=== PATIENT | female | born 1980 | race Caucasian/White ===

== ENCOUNTER 2023-10-25 15:53 | Inpatient (IN) ==
--- OUTSIDE RECORDS SUMMARY | 2023-10-25 16:00 | External Medical Summary | Summary of Care ---
Author Name Unknown Organization [facility] Address [address] [place] [address] Phone [phone] Care Team Providers Care Television Production Assistant Name Role Phone Petar Riley MD Primary Care Provide r Encounter Details Date Type Department Care Team (Latest Contact Info) Description 10/21/2023 12:40 PM EDT - 10/21/2023 6:29 PM EDT Hospital Encounter Radiology Film File [address] [place] [address] Arrived Discharge Disposition: Home - Self Care Allergies Active Allergy Reactions Criticality Noted Date Comments Amoxicillin-Pot Clavulanate Rash Low 04/24/20 21 documented as of this encounter (statuses as of 10/24/2023) Medications Medication Sig Dispensed Refills Start Date End Date Status Levothyroxine Sodium 75 MCG Oral Tablet (Levoxyl)Indications:Ac quired hypothyroidism TAKE 1 TABLET BY MOUTH IN THE MORNING ON AN EMPTY STOMACH. 90 Tablet 3 09/29/2023 Active Aspirin 81 MG Oral Tablet Chewable Take 1 Tablet by mouth in the morning. 30 Tablet 11 10/23/2023 Active documented as of this encounter (statuses as of 10/24/2023) Active Problems Problem Noted Date Diagnosed Date Transient speech disturbance 10/23/2023 Dissection of carotid artery 10/22/2023 Acquired hypothyroidism 09/21/2021 Acute bronchitis, antibiotics not indicated 10/2021 History of depression 06/20/2017 History of migraine 06/20/2017 History of anxiety 06/20/2017 ADVANCE DIRECTIVE INFORMATION 10/12/2010 Overview: No, Advance Directive brochure given to patient. Adjustment disorder with depressed mood 05/26/20 09 Overview: As of 10/12/10 pt states her symptoms are controlled with Celexa 20 mg daily. No homicidal or suicidal ideation. Other acne 05/04/2008 documented as of this encounter (statuses as of 10/24/2023) Resolved Problems Problem Noted Date Diagnosed Date Resolved Date Antepartum multigravida of a dvanced maternal age 0611/26/2017 04/20/2021 Supervision of wit h grand multiparity, antepartum 11/26/2017 04/20/2021 Elderly multigravida in first trimester 06/20/2017 11/26/2017 Current with histo ry of pre-term labor in first trimester 06/20/2017 04/20/2021 History of delivery, currently 06/20/2017 04/20/2021 Need for rubella vaccination 05/22/2017 12/22/2017 Overview: Rubella equivocal at NOB. Vaccinate PP AMA (advanced maternal age) multigravida 35+ 7 12/22/2017 History of delivery, currently 10/29/2013 05/23/2014 Depression complicating , antepartum 10/30/19 14 05/23/2014 Encounter for supervision of other normal 10/11/2013 06/14/2014 Overview: H/o PTL x 3, no PTD; all deliveries >36wks MFM 10/29/13: Recommend weekly IM 17-alpha hydroxyprogesterone 250mg ([place]) administration initiated between 16-24 weeks gestation and continued until 36 weeks gestation for prevention of labor and delivery. -pt declines due to cost Pt interested in PP tubal ligation Flu vaccine administered 04/18/2014 Renetta Ferrara, RN Tdap vaccine administered 04/18/2014 Renetta Ferrara RN ICD-10 update of inactive term Threatened premature labor, antepartum 01/07/2011 01/18/2011 Overview: Admitted to [facility] and transferred to [place] at 33 wks, kept there until 35 wks, was 4 cm upon d/c. GBS neg. Rec'd steroids ICD-10 update of inactive term Polyhydramnios, antepartum complication 01/07/2011 01/18/2011 Overview: MARINA = 27 at 35 wks NSTs/AFIs Other specified screening(V28.89) 10/13/2010 10/11/2013 LEFT ADNEXAL/ABDOMINAL CYST 10/09/2010 01/18/2011 Overview: From 10/09/10 a left abdominal cyst, possibly ovarian was noted on U/S measuring 3.8 x 3.0 x 3.3 cm. As of 10/12/10 f/u imaging on a more advanced U/S machine noted similar findings of a left-sided abdominal cyst measuring 3.4 x 2.1 x 4.6 cm which does not appear to be directly connected to her left ovary. While is it unclear as to the precise origin of this simple cyst, no findings of septations, or echolucencies suggestive of a complex nature which would suggest a higher likelihood of malignancy are noted. Additionally, Ms. Kumar denies abdominal pain. She has been given pain precautions and has agreed to f/u in 5-6 weeks to review imaging of this benign appearing abdominal cyst. Encounter for supervision of other normal 09/05/2010 01/18/2011 Overview: History of PTL with 2nd , was on bedrest starting at 20wk. Delivered at 36wks Per prior [facility] consultation, Cynthia's three (3) prior deliveries noted above do not put her at any significantly increased risk for delivery as they were >36 wks gestation. GBS done 12/15/10 - negative ICD-10 update of inactive term Threatened , antepartum 06/26/2009 02/13/2013 Overview: ED 06/24 [place]. [place] [address]. Redrawn 06/26 for trending. U/s 06/26 wnl, cx closed. Bld type O+. Encounter for supervision of other normal 05/26/2009 09/05/2010 ACUTE CYSTITIS 03/06/2005 08/11/2008 Overview: Resolved per Benign Acute Dxs Protocol #3 Urinary frequency 03/06/2005 09/04/2010 Dysuria 03/06/2005 09/04/2010 Abdominal pain, epigastric 03/06/2005 0 09/04/2010 SLOW TRANSIT CONSTIPATION/OBSTIPATION 03/06/2005 09/04/2010 Allergic rhinitis 03/06/2005 09/04/2010 Normal , first 08/15/200012/2000 documented as of this encounter (statuses as of 10/24/2023) Immunizations Name Administration Dates Next Due COVID-19 mRNA, LNP-s, No Pre serve, 2-Dose Series (Moderna) 11/22/2020,10/25/2020 Diptheria/Tetanus (Adult) 06/16/2006 H1N1 2009 Influenza, IM 05/26/2009 Seasonal Influenza, Split, IIV3, With Preserve, Inj 04/18/2014,04/04/2009 TDAP (age 10 and older)(Boostrix) 11/26/2017,08/2013 documented as of this encounter Social History Tobacco Use Types Packs/Day Years Used Date Smoking Tobacco: Never Smokeless Tobacco: Never Comments:Encouraged to avoid excessive secondhand smoke exposure in - 2018 Alcohol Use Standard Drinks/Week Comments No 0 (1 standard drink = 0.6 oz pure alcohol) Denies ETOH use since LMP- 2018 PHQ-2 Answer Date Recorded PHQ-2 Score 2 04/15/2019 Sex and Gender Information Value Date Recorded Sex Assigned at Female 01/20/2020 2:24 PM EDT Gender Identity Female 01/20/2020 2:24 PM EDT Sexual Orientation Straight 01/20/2020 2: 24 PM EDT Job Start Date Occupation Industry Not on file Not on file Not on file documented as of this encounter Plan of Treatment Upcoming Encounters Date Type Department Care Team (Late st Contact Info) Description 11/20/2023 11:00 AM EDT Imaging Radiology [address], [address] [place] [address] 11/20/2023 11:15 AM EDT Imaging Radiology [address] [facility], [address] [place] [address] 11/25/2023 3:30 PM EDT Office Visit [facility], [place] [address] [facility] [place] [address] Chance Connolly MD [address] [place] [address] Health Maintenance Due Date Last Done Comments Hepatitis B (1 of 3 - 19+ 3-dose series) 08/27/1998 HPV/Co-Test 08/27/2009 Mammogram 2019 Depression Screening 04/15/2020 04/15/2019 COVID-19 Vaccine ( season) 2023 11/22/2020, 10/25/2020 Cervical Cancer Screening 02/15/2023 Pap Smear 02/15/2023 02/16/2020, 02/15, 05/20/2017, Additional history exists Influenza Vaccine (FLU shot) (Season Ended) 2024 04/18/2014, 05/26/2009, 04/04/2009 TSH 10/19/2024 10/20/2023, 04/0 01/2022, 07/14/2021, Additional history exists Diabetes Screening 10/21/2026 10/22/2023, 0 10/22/2023, 10/22/2023, Additional history exists DTaP,Tdap,and Td Vaccines (4 - Td or Tdap) 11/27/2027 11/26/2017, 10/15/2017, 04/18/2014, Additional history exists Lipid Panel 10/21/2028 10/22/2023 GARDASIL-HPV IMMUNIZATION SERIES Aged Out No longer eligible based on patient's age to complete this topic MENINGOCOCCAL (MENACTRA/MENVEO) Aged Out No longer eligible based on patient's age to complete this topic Pneumococcal Vaccine: Pediatrics (0 to 5 Years) and At-Risk Patients (6 to 64 Years) Aged Out No longer eligible based on patient's age to complete this topic documented as of this encounter Medical Devices Not on filedocumented as of this encounter Procedures Procedure Name Priority Date/Time Associated Diagnosis Comments RADIOLOGY EXAM - CT (IMAGES ONLY, NO REPORT) Routine 10/21/2023 12:40 PM EDT documented in this encounter Results * RADIOLOGY EXAM - CT (IMAGES ONLY, NO REPORT) (10/21/2023 12:40 PM EDT) 10/21/2023 12:3 1 PM EDT Narrative Scheduling, Silent - 10/23/2023 8:41 AM EDT This is an imaging study not interpreted or resulted by a [employer] or [employer] contracted radiologist. Demian Kumar MD RAD CT documented in this encounter Additional Health Concerns Infection Onset Date Last Indicated Resolved Time COVID-19 (confirmed) 10/08/2021 10/08/2021 024 7:51 AM EDT documented as of this encounter Advance Directives Latest Code Status on File Code Status Date Activated Date Inactivated Comments Full Code 10/21/2023 10:34 PM 10/23/2023 6:17 PM This o rder reflects the patients wishes and were consensually agreed upon. Question Answer Comments Discussion of Advance Directives occurred with: Patient Code Status History Code Status Date Activated Date Inactivated Comments Full Code 12/18/2010 5:48 AM 01/01/2011 10:02 PM This order reflects the patients wishes and were consensually agreed upon. Care Teams Television Production Assistant Relationship Specialty Start Date End Date Petar Riley MD [address] [place] [address] [place] [phone] PCP - General Family Medicine 04/21/23 documented as of this encounter
--- OUTSIDE RECORDS SUMMARY | 2023-10-25 16:00 | External Medical Summary | Summary of Care ---
Author Name Unknown Organization [facility] Address [address] [place] [address] Phone [phone] Care Team Providers Care Hat Checker Name Role Phone Petar Riley MD Primary Care Provide r Encounter Details Date Type Department Care Team (Latest Contact Info) Description 10/21/2023 6:30 PM EDT - 10/21/2023 10:08 PM EDT Hospital Encounter Radiology Film File [address] [place] [address] Arrived Discharge Disposition: Home - [...] 10/29/13: Recommend weekly IM 17-alpha hydroxyprogesterone 250mg ([place]) administration initiated between 16-24 weeks gestation and continued until 36 weeks gestation for prevention of labor and delivery. -pt declines due to cost Pt interested in PP tubal ligation Flu vaccine administered 04/18/2014 Renetta Ferrara, RN Tdap vaccine administered 04/18/2014 Renetta Ferrara RN ICD-10 update of inactive term Threatened premature labor, antepartum 01/07/2011 01/18/2011 Overview: Admitted to [facility] and transferred to [place] at 33 wks, kept there until 35 [...] at 20wk. Delivered at 36wks Per prior [facility] consultation, Cynthia's three (3) prior deliveries noted above do not put her at any significantly increased risk for delivery as they were >36 wks gestation. GBS done 12/15/10 - negative ICD-10 update of inactive term Threatened , antepartum 06/26/2009 02/13/2013 Overview: ED 06/24 [place]. [place] [address]65. Redrawn 06/26 for trending. U/s 06/26 wnl, [...] Description 11/20/2023 11:00 AM EDT Imaging Radiology [address], [address] [place] [address] 11/20/2023 11:15 AM EDT Imaging Radiology [address] [facility], [address] [place] [address] 11/25/2023 3:30 PM EDT Office Visit [facility], [place] [address] [place] [facility] [place] [address] [facility] Connolly [facility] [address] [facility] [address] Health Maintenance Due Date Last Done Comments [...] Date/Time Associated Diagnosis Comments RADIOLOGY EXAM - MRI (IMAGES ONLY, NO REPORT) Routine 10/21/2023 6:30 PM EDT documented in this encounter Results * RADIOLOGY EXAM - MRI (IMAGES ONLY, NO REPORT) (10/21/2023 6:30 PM EDT) 10/21/2023 6:30 PM EDT Narrative Scheduling, Silent - 10/23/2023 8:37 AM EDT This is an imaging study not interpreted or resulted by a [facility] or [facility] contracted radiologist. Demian Kumar MD RAD MRI-MRA documented in this encounter Additional Health Concerns [...] and were consensually agreed upon. Care Teams Hat Checker Relationship Specialty Start Date End Date Petar Riley MD [address] [place] [address] [place] [phone] PCP - General Family Medicine 04/21/23 documented as of this encounter
--- OUTSIDE RECORDS SUMMARY | 2023-10-25 16:00 | External Medical Summary | Summary of Care ---
Author Name Unknown Organization [facility] Address [address] [place] [address] Phone [phone] Care Team Providers Care Destination Coordinator Name Role Phone Petar Riley MD Primary Care Provide r Encounter Details Date Type Department Care Team (Latest Contact Info) Description 10/21/2023 12:35 PM EDT - 10/21/2023 12:39 PM EDT Hospital Encounter Radiology Film File [address] [place] [address] Arrived Discharge Disposition: Home - [...] 10/29/13: Recommend weekly IM 17-alpha hydroxyprogesterone 250mg ([place]) administration initiated between 16-24 weeks gestation and continued until 36 weeks gestation for prevention of labor and delivery. -pt declines due to cost Pt interested in PP tubal ligation Flu vaccine administered 04/18/2014 Renetta Ferrara, RN Tdap vaccine administered 04/18/2014 Renetta Ferrara RN ICD-10 update of inactive term Threatened premature labor, antepartum 01/07/2011 01/18/2011 Overview: Admitted to [facility] and transferred to [place] at 33 wks, kept there until 35 [...] at 20wk. Delivered at 36wks Per prior [facility] consultation, Cynthia's three (3) prior deliveries noted above do not put her at any significantly increased risk for delivery as they were >36 wks gestation. GBS done 12/15/10 - negative ICD-10 update of inactive term Threatened , antepartum 06/26/2009 02/13/2013 Overview: ED 06/24 [place] 180[address]. Redrawn 06/26 for trending. U/s 06/26 wnl, [...] Description 11/20/2023 11:00 AM EDT Imaging Radiology [address], [address] [place] [address] 11/20/2023 11:15 AM EDT Imaging Radiology [address] [facility], [address] [place] [address] 11/25/2023 3:30 PM EDT Office Visit [facility], [place] [address] [place] [facility] [place] [address] Chance Connolly MD [address] [facility] [place] [address] Health Maintenance Due Date Last Done Comments [...] CT (IMAGES ONLY, NO REPORT) Routine 10/21/2023 12:35 PM EDT documented in this encounter Results * RADIOLOGY EXAM - CT (IMAGES ONLY, NO REPORT) (10/21/2023 12:35 PM EDT) 10/21/2023 12:3 1 PM EDT Narrative Scheduling, Silent - 10/23/2023 8:39 AM EDT This is an imaging study not interpreted or resulted by a [employer] or [employer] contracted radiologist. Demian Kumar MD RAD CT [...] and were consensually agreed upon. Care Teams Destination Coordinator Relationship Specialty Start Date End Date Petar Riley MD [address] [place] [address] [place] [phone] PCP - General Family Medicine 04/21/23 documented as of this encounter
--- OUTSIDE RECORDS SUMMARY | 2023-10-25 16:00 | External Medical Summary | Summary of Care ---
Author Name Unknown Organization [facility] Address [address] [place] [address] Phone [phone] Care Team Providers Care Pageant Director Name Role Phone Petar Riley MD Primary Care Provide r Encounter Details Date Type Department Care Team (Latest Contact Info) Description 10/21/2023 11:25 AM EDT - 10/21/2023 12:34 PM EDT Hospital Encounter Radiology Film File [address] [place] [address] Arrived Discharge Disposition: Home - [...] labor, antepartum 01/07/2011 01/18/2011 Overview: Admitted to [facility] and transferred to [place] at 33 wks, kept there until 35 [...] at 20wk. Delivered at 36wks Per prior [facility] consultation, Cynthia's three (3) prior deliveries noted above do not put her at any significantly increased risk for delivery as they were >36 wks gestation. GBS done 12/15/10 - negative ICD-10 update of inactive term Threatened , antepartum 06/26/2009 02/13/2013 Overview: ED 06/24 [place]. Hcg 70549. Redrawn 06/26 for trending. U/s 06/26 wnl, [...] Description 11/20/2023 11:00 AM EDT Imaging Radiology [address], [address] [place] [address] 11/20/2023 11:15 AM EDT Imaging Radiology [address] [facility], [address] [place] [address] 11/25/2023 3:30 PM EDT Office Visit [facility], [place] [address] [place] [address] Chance Connolly MD [address] [facility] [place] [address] Health Maintenance Due Date Last Done Comments [...] CT (IMAGES ONLY, NO REPORT) Routine 10/21/2023 11:25 AM EDT documented in this encounter Results * RADIOLOGY EXAM - CT (IMAGES ONLY, NO REPORT) (10/21/2023 11:25 AM EDT) 10/21/2023 11:2 2 AM EDT Narrative Scheduling, Silent - 10/23/2023 8:42 AM EDT This is an imaging study not interpreted or resulted by a [employer] or [employer] contracted radiologist. Demian Kumar MD RAD CT [...] and were consensually agreed upon. Care Teams Pageant Director Relationship Specialty Start Date End Date Petar Riley MD [address] [place] [address] [place] [phone] PCP - General Family Medicine 04/21/23 documented as of this encounter
--- OUTSIDE RECORDS SUMMARY | 2023-10-25 16:00 | External Medical Summary | Summary of Care ---
Author Name Unknown Organization [facility] Address [address] [place] [address] Phone [phone] Care Team Providers Care Oil Field Roustabout Name Role Phone Simba Riley MD Primary Care Provide r Reason for Visit * Reason Onset Date Comments Hospital Follow-Up 10/23/2023 1mo hd/fu pippa t needed thanks Nelly Encounter Details Date Type Department Care Team (Late st Contact Info) Description 10/23/2023 Telephone [facility], [place] [address] [place] [address] Specified, Samantha No Resource [address] [place] [address] Hospital Follow-Up (1mo hd/fu appt needed ... Allergies Active Allergy Reactions Criticality Noted Date Comments Amoxicillin-Pot Clavulanate Rash Low 04/24/20 21 documented as of this encounter (statuses as of 10/24/2023) Medications Medication Sig Dispensed Refills Start Date End Date Status Levothyroxine Sodium 75 MCG Oral Tablet (Levoxyl)Indications :Acquired hypothyroidism TAKE 1 TABLET BY MOUTH IN THE MORNING ON AN EMPTY STOMACH. 90 Tablet 3 09/29/2023 Active Sulfamethoxazole-Tri methoprim 800-160 MG Oral Tablet (Bactrim DS) Take 1 Tablet by mouth in the morning and 1 Tablet before bedtime. Do all this for 3 days. 6 Tablet 0 06/30/2023 4 Discontinued Ondansetron 4 MG Oral Tablet Disintegrating (Zofran) Place 1 Tablet on tongue every 8 hours as needed for Nausea. dissolve on tongue. 10 Tablet 0 10/20/2023 4 Discontinued documented as of this encounter (statuses as [...] patient. Adjustment disorder with depressed mood 05/26/20 Overview: As of 10/12/10 pt states her [...] x 3, no PTD; all deliveries >36wks [facility] 10/29/13: Recommend weekly IM 17-alpha hydroxyprogesterone 250mg ([place]) administration initiated between 16-24 weeks gestation and continued until 36 weeks gestation for prevention of labor and delivery. -pt declines due to cost Pt interested in PP tubal ligation Flu vaccine administered 04/18/2014 Renetta Ferrara, RN Tdap vaccine administered 04/18/2014 Renetta Ferrara, RN ICD-10 update of inactive term Threatened premature labor, antepartum 01/07/2011 01/18/2011 Overview: Admitted to [facility] and transferred to [place] at 33 wks, kept there until 35 [...] at 20wk. Delivered at 36wks Per prior [facility] consultation, Jenny's three (3) prior deliveries noted above do not put her at any significantly increased risk for delivery as they were >36 wks gestation. GBS done 12/15/10 - negative ICD-10 update of inactive term Threatened , antepartum 06/26/2009 02/13/2013 Overview: ED 06/24 [place]. [place] [address]74. Redrawn 06/26 for trending. U/s 06/26 wnl, [...] on file documented as of this encounter Functional Status Functional Status Response Date of Assess ment Are you deaf or do you have serious difficulty h earing? No 10/21/2023 Are you blind or do you have serious difficulty seeing, even when wearing glasses? No 10/21/2023 Do you have serious difficul ty walking or climbing stairs? (5 years old or older) No 10/21/2023 Do you have difficulty dress ing or bathing? (5 years old or older) No 10/21/2023 Because of a physical, menta l, or emotional condition, do you have difficulty doing errands alone such as visiting a doctor s office or shopping? (15 years old or older) No 10/21/19 Cognitive Status Response Date of Assessm ent Because of a physical, menta l, or emotional condition, do you have serious difficulty concentrating, remembering, or making decisions? (5 years old or older) No 10/21/2023 documented as of this encounter Miscellaneous Notes * Telephone Encounter - Nataly Ocasio RN - 10/24/2023 9:54 AM EDT Patient is s/p 10/22/2023 6-vessel cerebral angiogram with Dr. Connolly. Plan: Return to clinic in one month with CTA neck. -OV 11/25/2023 @ 3:30pm -CTA head/neck scheduled Patricia Cedeno 11/19 Continue daily baby Aspirin. Placed call out to patient [phone], no answer. Provided VM with instructions as above, and to remove bandage 24 hours after procedure, and s/s she should call and report. Provided clinic callback number for any questions or concerns she may have. Nataly Ocasio RN Cerebrovascular Nurse Navigator [facility] * Telephone Encounter - Melina Garcia OSA - 10/23/2023 8:37 AM EDT Patient is scheduled with Dr Connolly for a 1 month hd f/u on November 24 and CTA of head/neck are scheduled for 11/19 at [facility], appt's will be on discharge papers as patient is currently admitted * Telephone Encounter - Nelly Kidd OSA - 10/23/2023 7:55 AM EDT Order RETURN APPT [[id number]] (Order [id number]) Jenny Michael 10/21/2023 10:09 PM Admission Description: 43 year old female Department: [facility] Message Patient Name: JENNY MICHAEL([id number]) Sex: Female : 1980 PCP: SIMBA RILEY Center: [facility] Types of orders made on 10/23/2023: IP Post Discharge , Medications Order Date:10/23/2023 Ordering User:SEB VILLALBA [[id number] Attending Provider:Chance Connolly MD [[id number] Authorizing Provider: Seb Villalba MD [[id number]] Department:[facility][[id number]] Order Specific Information Order: RETURN APPT [CUSTOM: [id number]] Order #: [id number]: 1 Priority: Routine Class: Nursing Unit Department (Single Entry) -> Neurosurgery Appt Needed Within: (Specify # of Days, Weeks, Months) Cmt: 1 month Tests Needed Prior to Appt -> CTA H/N Released on: 10/23/2023 7:47 AM Priority: Routine Class: Nursing Unit Department (Single Entry) -> Neurosurgery Appt Needed Within: (Specify # of Days, Weeks, Months) Cmt: 1 month Tests Needed Prior to Appt -> CTA H/N Released on: 10/23/2023 7:47 AM Order Information documented in this encounter Plan of Treatment Upcoming Encounters Date Type Department Care Team (Late st Contact Info) Description 11/20/2023 11:00 AM EDT Imaging Radiology [address] [facility] [place] [address] 11/20/2023 11:15 AM EDT Imaging Radiology [address] [facility] [place] [address] 11/25/2023 3:30 PM EDT Office Visit Neurosurgery, [place] [address] [place] [address] Chance Connolly MD [address] [place] [address] Health Maintenance Due Date Last Done Comments [...] Not on filedocumented as of this encounter Advance Directives Latest [...] and were consensually agreed upon. Care Teams Oil Field Roustabout Relationship Specialty Start Date End Date Simba Riley MD [address] [place] [address] [place] [id number] PCP - General Family Medicine 04/21/23 documented as of this encounter
--- OUTSIDE RECORDS SUMMARY | 2023-10-25 16:01 | External Medical Summary ---
Author Name Unknown Address Unknown Organization : Laboratory Report Ordering Provider Test Date Status JOSÉ LUIS MARX 10/22/2023 12:11:50 Final Observation Date Value Abnormality Reference (Units ) Status Glucose Point of Care 10/22/2023 12:11:50 98 70-120 (mg/dL) Final Performing Location
--- OUTSIDE RECORDS SUMMARY | 2023-10-25 16:01 | External Medical Summary | Summary of Care ---
Author Name Unknown Organization [facility] Address [address] [place] [address] Phone [phone] Care Team Providers Care Post Splitter Name Role Phone Petar Riley MD Primary Care Provide r Encounter Details Date Type Department Care Team (Late st Contact Info) Description 10/21/2023 Orders Only Unspecified Department Demian Kumar MD [address] [place] [address] Allergies Active Allergy Reactions Criticality Noted Date Comments Amoxicillin-Pot Clavulanate Rash Low 04/24/20 21 documented as of this encounter (statuses as of 10/23/2023) Medications Medication Sig Dispensed Refills Start Date End Date Status Levothyroxine Sodium 75 MCG Oral Tablet (Levoxyl)Indications :Acquired hypothyroidism TAKE 1 TABLET BY MOUTH IN THE MORNING ON AN EMPTY STOMACH. 90 Tablet 3 09/29/2023 Suspended Additional Information Ondansetron 4 MG Oral Tablet Disintegrating (Zofran) Place 1 Tablet on tongue every 8 hours as needed for Nausea. dissolve on tongue. 10 Tablet 0 10/20/2023 Suspended Additional Information documented as of this encounter (statuses as of 10/23/2023) Active Problems Problem Noted Date Diagnosed Date [...] as of this encounter (statuses as of 10/23/2023) Resolved Problems Problem Noted Date Diagnosed Date [...] x 3, no PTD; all deliveries >36wks [facility] 10/29/13: Recommend weekly IM 17-alpha hydroxyprogesterone 250mg ([place]) administration initiated between 16-24 weeks gestation and continued until 36 weeks gestation for prevention of labor and delivery. -pt declines due to cost Pt interested in PP tubal ligation Flu vaccine administered 04/18/2014 Renetta Ferrara, RN Tdap vaccine administered 04/18/2014 Renetta Ferrara RN ICD-10 update of inactive term Threatened premature labor, antepartum 01/07/2011 01/18/2011 Overview: Admitted to [facility] and transferred to [place] at 33 wks, kept there until 35 [...] at 20wk. Delivered at 36wks Per prior [facility] consultation, Cynthia's three (3) prior deliveries noted above do not put her at any significantly increased risk for delivery as they were >36 wks gestation. GBS done 12/15/10 - negative ICD-10 update of inactive term Threatened , antepartum 06/26/2009 02/13/2013 Overview: ED 06/24 [place]. [place] 31559. Redrawn 06/26 for trending. U/s 06/26 wnl, [...] as of this encounter (statuses as of 10/23/2023) Immunizations Name Administration Dates Next Due COVID-19 [...] Description 11/20/2023 11:00 AM EDT Imaging Radiology [address] 132 [facility] [place] [address] 11/20/2023 11:15 AM EDT Imaging Radiology [address] [place] [address] 11/25/2023 3:30 PM EDT Office Visit Shama, Shaila [address] [place] [address] Chacne Connolly MD [address] [place] [address] Health Maintenance Due Date Last Done Comments [...] 10/22/2023, Additional history exists DTaP,Tdap,and Td Vaccines (3 - Td or Tdap) 11/27/2027 11/26/2017, 04/18/2014, 06/16/2006 Lipid Panel 10/21/2028 10/22/2023 GARDASIL-HPV IMMUNIZATION SERIES [...] interpreted or resulted by a [facility] or [facility] radiologist. Demian Kumar MD RAD MRI-MRA documented in this encounter Additional Health Concerns Infection Onset Date Last Indicated Resolved Time COVID-19 (confirmed) 10/08/2021 10/08/2021 024 7:51 AM EDT documented as of this encounter Advance Directives Latest Code Status on File Code Status Date Activated Date Inactivated Comments Full Code 10/21/2023 10:34 PM This order reflects the patients wishes and were consensually agreed upon. Question Answer Comments Discussion of Advance Directives occurred with: Patient Code Status History Code Status Date Activated Date Inactivated Comments Full Code 12/18/2010 5:48 AM 01/01/2011 10:02 PM This order reflects the patients wishes and were consensually agreed upon. Care Teams Post Splitter Relationship Specialty Start Date End Date Petar Riley MD [address] [place] [address] [place] [id number] PCP - General Family Medicine 04/21/23 documented as of this encounter
--- OUTSIDE RECORDS SUMMARY | 2023-10-25 16:01 | External Medical Summary | Summary of Care ---
Author Name Unknown Organization [facility] Address [address] [place] [address] Phone [phone] Care Team Providers Care Consulting Marine Engineer Name Role Phone Petar Riley MD Primary Care Provide r Encounter Details Date Type Department Care Team (Late st Contact Info) Description 10/21/2023 Orders Only Unspecified Department Demian Kumar MD [address] [place] [address] Allergies Active Allergy Reactions Criticality [...] x 3, no PTD; all deliveries >36wks [facility] 10/29/13: Recommend weekly IM 17-alpha hydroxyprogesterone 250mg ([place]) administration initiated between 16-24 weeks gestation and continued until 36 weeks gestation for prevention of labor and delivery. -pt declines due to cost Pt interested in PP tubal ligation Flu vaccine administered 04/18/2014 Renetta Ferrara, RN Tdap vaccine administered 04/18/2014 Renetta Ferrara RN ICD-10 update of inactive term Threatened premature labor, antepartum 01/07/2011 01/18/2011 Overview: Admitted to [facility] and transferred to [place] at 33 wks, kept there until 35 [...] at 20wk. Delivered at 36wks Per prior [facility] consultation, Cynthia's three (3) prior deliveries noted above do not put her at any significantly increased risk for delivery as they were >36 wks gestation. GBS done 12/15/10 - negative ICD-10 update of inactive term Threatened , antepartum 06/26/2009 02/13/2013 Overview: ED 06/24 [place]. [place] 03443. Redrawn 06/26 for trending. U/s 06/26 wnl, [...] Description 11/20/2023 11:00 AM EDT Imaging Radiology [address] 132 [facility] [place] [address] 11/20/2023 11:15 AM EDT Imaging Radiology [address] [place] [address] 11/25/2023 3:30 PM EDT Office Visit Shama, Shaila [address] [place] [address] Chance Connolly MD [address] [place] [address] Health Maintenance Due Date Last Done Comments [...] interpreted or resulted by a [facility] or [facility] radiologist. Demian Kumar MD RAD CT [...] and were consensually agreed upon. Care Teams Consulting Marine Engineer Relationship Specialty Start Date End Date Petar Riley MD [address] [place] [address] [place] [address] PCP - General Family Medicine 04/21/23 documented as of this encounter
--- OUTSIDE RECORDS SUMMARY | 2023-10-25 16:01 | External Medical Summary | Summary of Care ---
Author Name Unknown Organization [facility] Address [address] [place] [address] Phone [phone] Care Team Providers Care Tabulating Machine Mechanic Name Role Phone Petar Riley MD Primary Care Provide r Reason for Visit * Reason Onset Date Comments Hospital Follow-Up 10/23/2023 1mo hd/fu pippa t needed thanks Nelly Encounter Details Date Type Department Care Team (Late st Contact Info) Description 10/23/2023 Telephone [facility] [place] [address] [place] [address] Specified, Zz No Resource [address] [place] [address] Hospital Follow-Up (1mo hd/fu appt [...] tubal ligation Flu vaccine administered 04/18/2014 Renetta Ferrara DOROTHY Tdap vaccine administered 04/18/2014 Renetta Ferrara RN ICD-10 update of inactive term Threatened premature labor, antepartum 01/07/2011 01/18/2011 Overview: Admitted to [facility] and transferred to [place] at 33 wks, kept there until 35 [...] at 20wk. Delivered at 36wks Per prior [facility] consultation, Jenny's three (3) prior deliveries noted above do not put her at any significantly increased risk for delivery as they were >36 wks gestation. GBS done 12/15/10 - negative ICD-10 update of inactive term Threatened , antepartum 06/26/2009 02/13/2013 Overview: ED 1/9 with vag bleeding. Hcg 49396. Redrawn 06/26 for trending. U/s 06/26 wnl, [...] encounter Miscellaneous Notes * Telephone Encounter - Nelly Kidd, MYRNA - 10/23/2023 7:55 AM EDT Order RETURN APPT [IP355] (Order [id number]) Jenny Ashton Peamber 10/21/2023 10:09 PM Admission Description: 43 year old female Department: AP4 [place] [facility] [place] Patient Name: JENNY MICHAEL([id number]) Sex: Female : 1980 PCP: PETAR RILEY Center: [facility] Types of orders made on 10/23/2023: IP Post Discharge , Medications Order Date:10/23/2023 Ordering User:SEB VILLALBA [[id number]] Attending Provider:Chance Connolly MD [[id number] Authorizing Provider: Seb Villalba MD [[id number]] Department:AP4 [facility][id number]] Order Specific Information Order: RETURN APPT [CUSTOM: IP355] Order #: [id number]: 1 Priority: Routine Class: Nursing Unit Department [...] documented in this encounter Plan of Treatment Health Maintenance Due Date Last Done Comments [...] and were consensually agreed upon. Care Teams Tabulating Machine Mechanic Relationship Specialty Start Date End Date Petar Riley MD [address] [place] [address] [place] [id number] PCP - General Family Medicine 04/21/23 documented as of this encounter
--- OUTSIDE RECORDS SUMMARY | 2023-10-25 16:01 | External Medical Summary | Summary of Care ---
Author Name Unknown Organization [facility] Address [address] [place] [address] Phone [phone] Care Team Providers Care Button Clamper Name Role Phone Petar Riley MD Primary Care Provide r Reason for Visit * Reason Onset Date Comments Hospital Follow-Up 10/23/2023 1mo hd/fu pippa t needed thanks Nelly Encounter Details Date Type Department Care Team (Late st Contact Info) Description 10/23/2023 Telephone [facility] [place] [address] [place] [address] Specified, Zz No Resource [address] [place] [address] Hospital Follow-Up (1mo hd/fu appt [...] labor, antepartum 01/07/2011 01/18/2011 Overview: Admitted to [facility] and transferred to [place] at 33 wks, kept there until 35 [...] at 20wk. Delivered at 36wks Per prior [facility] consultation, Jenny's three (3) prior deliveries noted above do not put her at any significantly increased risk for delivery as they were >36 wks gestation. GBS done 12/15/10 - negative ICD-10 update of inactive term Threatened , antepartum 06/26/2009 02/13/2013 Overview: ED 1/9 [place]. H[place] 12287. Redrawn 06/26 for trending. U/s 06/26 wnl, [...] (15 years old or older) No 10/21/19 24 Cognitive Status Response Date of Assessm ent Because of a physical, menta l, or emotional condition, do you have serious difficulty concentrating, remembering, or making decisions? (5 years old or older) No 10/21/2023 documented as of this encounter Miscellaneous Notes * Telephone Encounter - Melina Garcia OSA - 10/23/2023 8:37 AM EDT Patient is scheduled with Dr Connolly for a 1 month hd f/u on November 24 and CTA of head/neck are scheduled for 11/19 at [facility] in [facility], appt's will be on discharge papers as patient is currently admitted * Telephone Encounter - Nelly Kidd OSA - 10/23/2023 7:55 AM EDT Order RETURN APPT [IP355] (Order [id number]) Jenny Ashton Beatrice 10/21/2023 10:09 PM Admission Description: 43 year old female Department: [place]4 [place] [facility] [place] Patient Name: JENNY MICHAEL([id number]) Sex: Female : 1980 PCP: PETAR RILEY Center: [facility] Types of orders made on 10/23/2023: IP Post Discharge , Medications Order Date:10/23/2023 Ordering User:SEB VILLALBA [[id number]] Attending Provider:Chance Connolly MD [[id number]] Authorizing Provider: Seb Villalba MD [[id number]] Department:AP4 [facility][[id number]] Order Specific Information Order: RETURN APPT [CUSTOM: IP355] Order #: [id number]: 1 Priority: Routine Class: Nursing Unit Department [...] Description 11/20/2023 11:00 AM EDT Imaging Radiology [address] [place] [address] 11/20/2023 11:15 AM EDT Imaging [address] [place] [address] 11/25/2023 3:30 PM EDT Office Visit [facility] [address] [place] [address] Chance Connolly MD [address] [place] [address] Health Maintenance Due Date Last Done Comments [...] and were consensually agreed upon. Care Teams Button Clamper Relationship Specialty Start Date End Date Petar Riley MD [address] [place] [address] [place] [id number] PCP - General Family Medicine 04/21/23 documented as of this encounter
--- OUTSIDE RECORDS SUMMARY | 2023-10-25 16:01 | External Medical Summary ---
Author Name Unknown Address Unknown Organization K01:[facility] [place] - [address] [facility] [place] [address] Laboratory Report Ordering Provider Test Date Status ERICA WILLIAMSON 10/22/2023 06:20:00 Final Observation Date Value Abnormality Reference (Units ) Status BUN 10/22/2023 06:20:00 10 6-20 (mg/dL) Final Creatinine 10/22/2023 06:20:00 0.8 0.5-1.0 (mg/dL) Final Glomerular filtration rate/1.73 sq M.predicted [Volume Rate/Area] in Serum, Plasma or Blood by Creatinine-based formula (CKD-EPI) 10/22/2023 06:20:00 89 >=60 (mL/min) Final eGFR is calculated based on the CKD-EPI 2020 equation Sodium 10/22/2023 06:20:00 139 135-146 (m mol/L) Final Potassium 10/22/2023 06:20:00 4.5 3.5-5.1 (m mol/L) Final Cl 10/22/2023 06:20:00 106 98-107 (mm ol/L) Final CO2 10/22/2023 06:20:00 25 22-32 (mmo l/L) Final Anion gap 10/22/2023 06:20:00 8 7-15 (mmol /L) Final Glucose 10/22/2023 06:20:00 91 70-120 (mg /dL) Final Calcium 10/22/2023 06:20:00 9.0 8.4-10.2 ( mg/dL) Final Performing Location [facility] - [address] [facility] [address]
--- OUTSIDE RECORDS SUMMARY | 2023-10-25 16:01 | External Medical Summary | Summary of Care ---
Author Name Unknown Organization [facility] Address [address] [place] [address] Phone [phone] Care Team Providers Care Silk Crepe Machine Operator Name Role Phone Petar Riley MD Primary Care Provide r Encounter Details Date Type Department Care Team (Late st Contact Info) Description 10/21/2023 Orders Only Unspecified Department Demian Kumar MD [address] [place] [address] Allergies Active Allergy Reactions Criticality [...] x 3, no PTD; all deliveries >36wks [facility] 10/29/13: Recommend weekly IM 17-alpha hydroxyprogesterone 250mg ([place]) administration initiated between 16-24 weeks gestation and continued until 36 weeks gestation for prevention of labor and delivery. -pt declines due to cost Pt interested in PP tubal ligation Flu vaccine administered 04/18/2014 Renetta Ferrara, RN Tdap vaccine administered 04/18/2014 Renetta Ferrara RN ICD-10 update of inactive term Threatened premature labor, antepartum 01/07/2011 01/18/2011 Overview: Admitted to [facility] and transferred to [place] at 33 wks, kept there until 35 [...] at 20wk. Delivered at 36wks Per prior [facility] consultation, Cynthia's three (3) prior deliveries noted above do not put her at any significantly increased risk for delivery as they were >36 wks gestation. GBS done 12/15/10 - negative ICD-10 update of inactive term Threatened , antepartum 06/26/2009 02/13/2013 Overview: ED 06/24 [place]. [place] [address]1143. Redrawn 06/26 for trending. U/s 06/26 wnl, [...] Description 11/20/2023 11:00 AM EDT Imaging Radiology [address] 132 [facility] [place] [address] 11/20/2023 11:15 AM EDT Imaging Radiology [address] [place] [address] 11/25/2023 3:30 PM EDT Office Visit Shama, Shaila [address] [place] [address] Chance Connolly MD [address] [place] [address] Health Maintenance Due Date Last Done Comments [...] interpreted or resulted by a [facility] or [facility] radi[facility]. Demian Kumar MD RAD [...] and were consensually agreed upon. Care Teams Silk Crepe Machine Operator Relationship Specialty Start Date End Date Petar Riley MD [address] [place] [address] [place] [id number] PCP - General Family Medicine 04/21/23 documented as of this encounter
--- OUTSIDE RECORDS SUMMARY | 2023-10-25 16:01 | External Medical Summary ---
Author Name Unknown Address Unknown Organization K01:[facility] [place] [address] [facility] [address] Laboratory Report Ordering Provider Test Date Status ERICA WILLIAMSON 10/22/2023 06:20:00 Final Observation Date Value Abnormality Reference (Units ) Status HbA1C 10/22/2023 06:20:00 5.5 4.0-5.6 (% ) Final The use of HbA1c to monitor glycemic status is based on normal hemoglobin and HbA composition. This test should not be used in patients with abnormal hemoglobin that affects the half life of the red blood cell or the in vivo glycation rates. Glucose, estimated average 10/22/2023 06:20:00 111 <126 (mg/dL) Final Performing Location [facility] [place] [address] [facility] [address]
--- OUTSIDE RECORDS SUMMARY | 2023-10-25 16:01 | External Medical Summary | Summary of Care ---
Author Name Unknown Organization [facility] Address [address] [place] [address] Phone [phone] Care Team Providers Care Bedspread Cutter Name Role Phone Petar Riley MD Primary Care Provide r Encounter Details Date Type Department Care Team (Late st Contact Info) Description 10/21/2023 Orders Only Unspecified Department Demian Kumar MD [address] [place] [address] Allergies Active Allergy Reactions Criticality [...] x 3, no PTD; all deliveries >36wks [facility] 10/29/13: Recommend weekly IM 17-alpha hydroxyprogesterone 250mg ([place]) administration initiated between 16-24 weeks gestation and continued until 36 weeks gestation for prevention of labor and delivery. -pt declines due to cost Pt interested in PP tubal ligation Flu vaccine administered 04/18/2014 Renetta Ferrara, RN Tdap vaccine administered 04/18/2014 Renetta Ferrara RN ICD-10 update of inactive term Threatened premature labor, antepartum 01/07/2011 01/18/2011 Overview: Admitted to [facility] and transferred to [place] at 33 wks, kept there until 35 [...] 20wk. Delivered at 36wks Per prior [facility] consultation, Cynthia's three (3) prior deliveries noted above do not put her at any significantly increased risk for delivery as they were >36 wks gestation. GBS done 12/15/10 - negative ICD-10 update of inactive term Threatened , antepartum 06/26/2009 02/13/2013 Overview: ED 06/24 [place]. H[place] 56699. Redrawn 06/26 for trending. U/s 06/26 wnl, [...] Description 11/20/2023 11:00 AM EDT Imaging Radiology [address] 132 [facility] [place] [address] 11/20/2023 11:15 AM EDT Imaging Radiology [address] [place] [address] 11/25/2023 3:30 PM EDT Office Visit Shama, Shaila [address] [place] [address] Chance Connolly MD [address] [place] [address] Health Maintenance Due Date Last Done Comments [...] interpreted or resulted by a [facility] or [facility] contracted radiologist. Demian Kumar MD RAD CT [...] and were consensually agreed upon. Care Teams Bedspread Cutter Relationship Specialty Start Date End Date Petar Riley MD [address] [place] [address] [place] [address] PCP - General Family Medicine 04/21/23 documented as of this encounter
--- OUTSIDE RECORDS SUMMARY | 2023-10-25 16:01 | External Medical Summary | Summary of Care ---
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 No orders of the defined types were placed in this encounter. Labs: Please see Lab Flowsheet for lab values. Lab Comments: n/a Diet: Orders Placed This Encounter Procedures NPO After 2400 Except Meds NPO: Additional Diet Information: npo since 0000 Intake and Output: No intake or output data in the 24 hours ending 10/22/23 1110 Belongings Remaining with Patient: none What were AM meds taken with: sips of water Time of last pain medication: acetaminophen at 0715 Med: acetaminophen Time of last antibiotic: n/a Med: n/a Time of last skin assessment: 739 Pressure injuries or areas of concern: no Neurological: Neuro WNL: X - Exceptions to WNL as documented below (10/22/23738) Speech: Expressive aphasia (10/22/23738) Level of Consciousness: Alert (10/22/23738) RUE Motor Strength: 5-Active movement with full resistance (10/22/23738) RLE Motor Strength: 5-Active movement with full resistance (10/22/23738) LUE Motor Strength: 5-Active movement with full resistance (10/22/23738) LLE Motor Strength: 5-Active movement with full resistance (10/22/23738) Coma Score: 15 (10/22/23738) Respiratory: Respiratory WNL: WNL- within normal limits (10/22/23738) Oxygen therapy/ Mechanical vent Supplemental O2 Delivery: Room Air, None (10/22/23738) Cardiac: Rhythm: NSR (10/22/23713) GI: GI WNL: WNL - within normal limits (10/22/23738) : WNL: WNL - within normal limits (10/22/23738) Integumentary: Integumentary WNL: WNL - within normal limits (10/22/23738) Skin Description: Dry;Warm (10/22/23738) Skin Color: Flesh Tone (10/22/23738) Skin Lesion: Ecchymosis (10/22/23738) Dallas Score (auto-calculation): 20 (10/21/23 2300) Additional Assessment Information: patient aox4. Has been npo since 0000. Pleasant and cooperative with care. * Latha Lira RN - 10/21/2023 10:34 PM EDT Dual Licensed Skin Assessment completed by Marizol Linares RN and Latha Lira RN. The patient is/has a N/A Skin Breakdown (includes non blanchable erythema): No -scattered ecchymosis documented in this encounter OR Notes * OR Surgeon - Chance Connolly MD - 10/22/2023 2:37 PM EDT 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 No angiographic evidence of associated pseudoaneurysm or intra luminal thrombosis. Left anterior choroidal artery infundibulum. A normal anatomical variant. Otherwise unremarkable diagnostic cervico-cerebral angiogram. Specifically, No evidence of aneurysm, arteriovenous malformation, vasospasm, vasculitis or other intracranial vascular abnormality. Operation: 6-vessel cerebral angiogram Surgeon: Chance Connolly MD Assistants: Nia Klein MD No qualified resident was available. My Analysis Director was necessary throughout the procedure(s). Analysis Director name: Nia Klein MD Analysis Director role: vascular access and catheter manipulation. I understand that section 1842 (b)(7)(D) of the Social Security Act generally prohibits Medicare physician fee schedule payment for the services of [id number] in teaching hospitals when qualified residents are available to furnish such services. I certify that the services for which meggan perla is claimed were medically necessary, and that no qualified resident was available to perform theservices. I further understand that these services are subject to post-payment review by the Medicare carrier. Anesthesia: Monitored Anesthesia Care (MAC) Hose Builder: Dotty Mehta RN; Valeria Fisher RN Pre-Op Nurse: Savi Cowart RN Personal Financial Representative: Christopher Kapadia, RT; Shira Lucero, RT; Milind Beal, RT (If conscious sedation was employed see above Sedation RN for trained observer) Total intraservice time: * Missing case tracking time(s) * Medication given during case (for sedation) Medication Orders Placed This Encounter Medications Acetaminophen (Tylenol) tab 650 mg aspirin chew tab 324 mg atorvaSTATin (Lipitor) tab 40 mg Docusate Sodium (Colace) cap 100 mg hEParin 3000 units in 1000 mL NSS infusion home medication stored in pharmacy levothyroxine (Levoxyl) tab 75 mcg ondansetron (Zofran) inj 4 mg oxygen GAS Polyethylene Glycol 3350 (Miralax) oral powder 17 g sodium chloride 0.9 % flush/inj 3 mL Estimated Blood Loss: 10 ml. IV Fluids: 100 ml. Urine Output: N/O. Drains: None. Specimens/Disposition: None. Apparent Intraoperative Complications: None. Patient Condition: Stable. Disposition: inpatient unit. Attestation: I was present for the entire procedure. Indication Cynthia Barron is a very pleasant 43 year old female, here today for diagnostic cervico-cerebral angiogram. In accordance with the patient's symptoms and imaging findings, i recommended that we perform a diagnostic cervico-cerebral angiogram to further evaluate and characterize for intracranial and extracranial vascular pathology. I explained that by performing this minimally-invasive diagnostic procedure our aim is to acquire a complete understanding of the cervical and cerebral angio-architecture. Risks and benefits were discussed with Cynthia Barron and the patient's family member. Risk includebut are not limited to bleeding, groin hematoma, infection, stroke with transient or permanent weakness, numbness or other deficit, speech and language dysfunction, vision loss, dissection, coma, , need for more surgery or interventions, blood vessel damage and/or blockage, kidney damage from contrast dye, focal radiation reaction/hair loss. Cynthia Barron questions were answered thoroughly. Cynthia Ashton Beatrice expressed understanding and elected to proceed with endovascular diagnostic cervico- cerebral angiogram. The patient consented for theprocedure. Procedure The patient was positioned on the angio table, anesthesia was induced, and the patient was prepped and draped in usual sterile fashion. The right femoral artery was localized using anatomic and fluoroscopic landmarks and a 5 Ugandan short sheath was placed using micropuncture kit and Seldinger technique. A 5-F diagnostic catheter was navigated over a 0.035 hydrophilic wire and the following vessels were selected. Right vertebral artery was selected. AP and lateral views of the posterior intracranial circluationwere obtained. Right common carotid artery was selected. AP and lateral views of the carotid bifurcation were obtained. Right internal carotid artery was selected. AP and lateral views of the anterior intracranial circluation were obtained. Right external carotid artery was selected. AP and lateral views of the extracranial carotid circluation were obtained. Left common carotid artery was selected. AP and lateral views of the carotid bifurcation were obtained. Left internal carotid artery was selected. AP and lateral views of the anterior intracranial circluation were obtained. Left external carotid artery was selected. AP and lateral views of the extracranial carotid circluation were obtained. Left vertebral artery was selected. AP and lateral views of the posterior intracranial circluation were obtained. Right common femoral artery. AP views were obtained. At the end of the procedure, the diagnostic catheter was removed and the arteriotomy site was closed with 5-F Mynx closure device. SOSA, LICA and RVA 3D rotational angiograms were obtained and processed at a separate workstation. Findings Right vertebral artery angiogram: The posterior circulation is unremarkable. No evidence of aneurysm, arteriovenous malformation, vasospasm, or other intracranial vascular abnormality. Right common carotid artery angiogram: The carotid bifurcation is well visualized and without significant arteriosclerotic disease or stenosis. Right internal carotid artery angiogram: The anterior intracranial circulation is unremarkable. No evidence of aneurysm, arteriovenous malformation, vasospasm, or other intracranial vascular abnormality. Right external carotid artery angiogram: The extracranial carotid circulation is unremarkable. Left common carotid artery angiogram: The carotid bifurcation is well visualized and without significant arteriosclerotic disease or stenosis. Left internal carotid artery angiogram: The anterior intracranial circulation is unremarkable. No evidence of aneurysm, arteriovenous malformation, vasospasm, or other intracranial vascular abnormality. Left external carotid artery angiogram: The extracranial carotid circulation is unremarkable. Left vertebral artery angiogram: The posterior circulation is unremarkable. No evidence of aneurysm, arteriovenous malformation, vasospasm, or other intracranial vascular abnormality. Right common femoral artery: The arteriotomy is above the femoral artery bifurcation. No angiographic evidence of arterial dissection, perforation of pseudoaneurysm. 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 No angiographic evidence of associated pseudoaneurysm or intra luminal thrombosis. Left anterior choroidal artery infundibulum. A normal anatomical variant. Otherwise unremarkable diagnostic cervico-cerebral angiogram. Specifically, No evidence of aneurysm, arteriovenous malformation, vasospasm, vasculitis or other intracranial vascular abnormality. Plan: Return to clinic in one month with CTA neck. Continue daily baby Aspirin. Chance Connolly MD Director of Open Vascular and Endovascular Neurosurgery at [facility] Paper Tester of Neurosurgery, [facility] documented in this encounter Miscellaneous Notes * Ancillary Progress Note - Magali Funes RN - 10/23/2023 1:22 PM EDT CARE MANAGEMENT - ADULT INITIAL SCREENING [facility] [place]-[address] [id number] Name: Cynthia Ashton Peamber Location: [facility] [place] A468/A Date: 10/23/2023 Time: 1:23 PM Discussed patient with the interdisciplinary care team. This Disintegrator performed a chart review and met with Cynthia at bedside to complete admission screen and assessed needs for transition planning. The family member caretaker role and services were explained and emotional support was provided. Chief Complaint: No chief complaint on file. Prior Living Arrangements What was your living situation prior to admission/observation?: Independently;With Spouse ([id number]) Living Quarters: House (10/23/231320) Number of steps to enter living quarters:: 1 (10/23/231320) Do you have serious difficulty walking or climbing stairs? (5 years old or older): No (10/21/23 2214) History of falling: No (10/23/23 0800) Prior Level of Functioning Describe the patient's ability prior to admission/observation to perform ADLs: Performs independently (10/23/231320) Describe the patient's mobility status prior to admission: Patient ambulates independently (10/23/231320) Patient uses assistive device: No (10/23/231320) Caregiver Information Patient Contacts Name Relation Home Work Mobile Mesfin Barron Spouse [phone] Sheila Coe Mother [phone] Risk Stratification/Psychosocial/Care Gaps Risk Stratification Psycho Social / Medical Concerns Identified: None Identified (10/23/231320) Accessed Digidentity to connect patients to social care resources: No (10/23/231320) OBRA or OPTIONS needed for placement: No (10/23/231320) Readmission Risk Score: 5.89 (10/23/23 1201) AM-PAC Score With Stairs : 23 (10/23/23 1242) Prior to Admission Services Services Prior to Admission FILM EDITOR Services (Services received within the last 30 days with exception, Psych within last two years): N/A (10/23/231320) [place] Dept[place] 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 Has not had HH, SNF, drug or alcohol rehab in the past. She drives, Mesfin will transport home at discharge. For further screening information, please refer to the Care Management flow document. * Communication - Billy Sepulveda DO - 10/23/2023 5:07 AM EDT EEG Baseline note: Initial EEG starting at 10/23/23, 6341 reviewed until 0507 Background: 10 Hz PDR symmetric, continuous, reactive, with state changes and N2 sleep transients. Interictal/Ictal findings: neither Asymmetries nor Seizures nor Epileptiform discharges Diagnostic Significance: Normal Full daily report to follow after 4 am. Please page the EEG reader distribution tech at the [facility] Epilepsy/Adult EEG provider [facility] role with any questions or concerns. * Care Plan - Harper Guillen RN - 10/22/2023 3:18 PM EDT Clinical Goal(s): pt will be free from falls (10/22/23 0739) Possible barriers to meeting goal(s)/advancing plan of care: weakness Stability of the patient: Moderately stable - low risk of patient condition declining or worsening Summary regarding today's goal(s): Met: pt free from falls Recommendations: standard * Ancillary Progress Note - Keegan Jacob OTR/Chela - 10/22/2023 9:00 AM EDT Cynthia Barron [id number] 43 year old [facility] A468/A OCCUPATIONAL THERAPY Received order for OT evaluation/treatment. Attempted session this date however patient schedule for DSA today. OT to attempt evaluation s/p OR. Thank you * Ancillary Progress Note - Ally Elena PT - 10/22/2023 8:59 AM EDT Cynthia Barron [facility] A468/A [id number] Per chart review, pt is scheduled for OR on this date. PT will follow up with pt s/p OR as able/appropriate. Thank you. * Care Plan - Latha Lira RN - 10/22/2023 5:34 AM EDT Clinical Goal(s): Pt will remain free from falls (10/21/23 2300) Possible barriers to meeting goal(s)/advancing plan of care: weakness, pain Stability of the patient: Moderately stable - low risk of patient condition declining or worsening Summary regarding today's goal(s): Met: pt remained free from falls Recommendations: fall precautions, hourly rounding, pain mgmt documented in this encounter Plan of Treatment Upcoming Encounters Date Type Department Care Team (Late st Contact Info) Description 11/20/2023 11:00 AM EDT Imaging Radiology [address] [place] [address] 11/20/2023 11:15 AM EDT Imaging Radiology [address] [place] [address] 11/25/2023 3:30 PM EDT Office Visit Neurosurgery, [place] [address] [place] [address] Chance Connolly MD [address] [place] [address] Scheduled Orders Name Type Priority Associated Diagnoses Orde r Schedule EEG ROUTINE Procedures Routine One Time for 1 Occurrences starting 10/22/2023 until 10/22/2023 CTA HEAD Medical Imaging Routine Dissection of carotid artery (HCC) Expected: 11/20/2023, Expires: 11/22/2024 CTA NECK Medical Imaging Routine Dissection of carotid artery (HCC) Expected: 11/20/2023, Expires: 11/22/2024 Health Maintenance Due Date Last Done Comments [...] Procedure Name Priority Date/Time Associated Diagnosis Comments NEURO IR IMAGING Routine 10/22/2023 3:13 PM EDT VERTEBRAL ARTERY CATHETER PLACEMENT 10/22/2023 1:50 PM EDT Expressive aphasia CAROTID (INTERNAL) ARTERY CATHETHER PLACEMENT 10/22/2023 1:50 PM EDT Expressive aphasia GLUCOSE METER, POINT OF CARE CLAUDE 10/22/2023 12:11 PM EDT HC ECG TRACING ONLY STAT 10/22/2023 7 :59 AM EDT Chest pain LIPID PANEL WITH DIRECT LDL IF TG IS HIGH Routine 10/22/2023 6:20 AM EDT HEMOGLOBIN A1C Routine 10/22/2023 6:20 AM EDT BASIC METABOLIC PANEL Routine 10/22/2023 6:20 AM EDT CBC Routine 10/22/2023 6:20 AM EDT HC ECG TRACING ONLY STAT 10/22/2023 2 :52 AM EDT Chest pain documented in this encounter Results * NEURO IR IMAGING (10/22/2023 3:13 PM EDT) Narrative Scheduling, Silent - 10/22/2023 3:14 PM EDT This procedure will not be read by a Radiologist. Please see operative note. Chance Connolly MD RAD SPECIAL PROCEDUR ES * GLUCOSE METER, POINT OF CARE (10/22/2023 12:11 PM EDT) Glucose Meter 98 70 - 120 mg/dL 10/22/2023 12:23 PM EDT [employer] Blood Whole blood specimen / Unknown 10/22/2023 12:11 PM EDT 10/22/2023 12:23 PM EDT Taye Henderson MD LAB POINT OF CA RE TEST DOCKED DEVICE UNSOLICITED RESULTS [facility] [address] [place] [address] * EKG (10/22/2023 7:59 AM EDT) 10/22/2023 7:59 AM EDT Narrative Procedure Note Harshil Min MD - 10/22/2023 7:59 AM EDT REASON FOR STUDY: Notify provider if obtaining EKG;Chest pain CONCLUSIONS: Normal sinus rhythm Normal ECG When compared with ECG of 22-Oct-2023 02:52, No significant change was found Ventricular Rate: 63 Atrial Rate: 63 ME Interval: 114 QRS Duration: 86 QT/QTc: 430/440 ms P-R-T Pollock: 49 : 36 : 8 degrees Gita Brantley DO EKG [facility] CARDIOLOGY * (ABNORMAL) LIPID PANEL WITH DIRECT LDL IF TG IS HIGH (10/22/2023 6:20 AM EDT) Triglycerides 156 <=174 mg/dL 10/22/2023 7:09 AM EDT LABORATORY [facility] Comment: Triglyceride Reference Ranges (mg/dL): <150 Acceptable 150-174 Borderline high 175-499 High >=500 Very high Cholesterol 204(H) <200 mg/dL 10/22/2023 7:09 AM EDT LABORATORY [facility] [place] Comment: Total Cholesterol Reference Ranges (mg/dL): <200 Desirable 200-239 Borderline high >=240 High HDL Cholesterol 35(L) >49 mg/dL 7:09 AM EDT LABORATORY [facility] [place] [facility] Comment: HDL Cholesterol Reference Ranges (mg/dL): >=60 High (Desirable) <50 Low (Undesirable) For Females <40 Low (Undesirable) For Males Non-HDL Cholesterol 169(H) <=159 mg/dL 10/22/2023 7:09 AM EDT LABORATORY [facility] [place] Comment: Non-HDL Cholesterol Reference Range (mg/dL): <100 Target level for high risk ASCVD patient <130 Optimal for general population 130-159 Near optimal for general population 160-189 Borderline High 190-219 High >=220 Very High LDL Cholesterol 138(H) <=129 mg/dL 10/22/2023 7:09 AM EDT LABORATORY [facility] [place] Comment: LDL Cholesterol Reference Ranges (mg/dL): <70 Target level for high risk ASCVD patient <100 Optimal for general population 100-129 Near optimal for general population 130-159 Borderline high 160-189 High >=190 Very high Blood Venous blood specimen / Unknown Venipuncture / Unknown 10/22/2023 6:20 AM EDT 10/22/2023 6:40 AM EDT Gita Brantley DO LAB BLOOD ORDERABLES LABORATORY [address] [address] * HEMOGLOBIN A1C (10/22/2023 6:20 AM EDT) Hemoglobin A1C 5.5 4.0 - 5.6 % 10/22/2023 7:43 AM EDT LABORATORY [facility] Comment:The use of HbA1c to monitor glycemic status is based on normal hemoglobin and HbA composition. This test should not be used in patients with abnormal hemoglobin that affects the half life of the red blood cell or the in vivo glycation rates. Estimated Average Glucose 111 <126 mg/dL 10/22/2023 7:43 AM EDT LABORATORY [facility] [facility] Blood Venous blood specimen / Unknown Venipuncture / Unknown 10/22/2023 6:20 AM EDT 10/22/2023 6:40 AM EDT Gita Brantley DO LAB BLOOD ORDERABLES LABORATORY [facility] [address] [place] [address] * BASIC METABOLIC PANEL (10/22/2023 6:20 AM EDT) BUN 10 6 - 20 mg/dL 10/22/2023 7:09 AM EDT LABORATORY [facility] [facility] Creatinine 0.8 0.5 - 1.0 mg/dL 10/22/2023 7:09 AM EDT LABORATORY [facility] Estimated Glomerular Filtration Rate 89 >=60 mL/min 10/22/2023 7:09 AM EDT LABORATORY [facility] Comment:eGFR is calculated b ased on the CKD-EPI 2020 equation Sodium 139 135 - 146 mmol/L 10/22/2023 7:09 AM EDT LABORATORY C Potassium 4.5 3.5 - 5.1 mmol/L 10/22/2023 7:09 AM EDT LABORATORY C Chloride 106 98 - 107 mmol/L 10/22/2023 7:09 AM EDT LABORATORY C CO2 25 22 - 32 mmol/L 10/22/2023 7:09 AM EDT LABORATORY [facility] [facility] Anion Gap 8 7 - 15 mmol/L 10/22/2023 7:09 AM EDT LABORATORY [facility] Glucose 91 70 - 120 mg/dL 10/22/2023 7:09 AM EDT LABORATORY C Calcium 9.0 8.4 - 10.2 mg/dL 10/22/2023 7:09 AM EDT LABORATORY [facility] [facility] Blood Venous blood specimen / Unknown Venipuncture / Unknown 10/22/2023 6:20 AM EDT 10/22/2023 6:40 AM EDT Gita Brantley DO LAB BLOOD ORDERABLES Performing Organization Address City/[facility]/ZIP Co de Phone Number LABORATORY [facility] [address] [place] [address] * CBC (10/22/2023 6:20 AM EDT) WBC 6.00 4.00 - 10.80 K/uL 10/22/2023 7:01 AM EDT LAB[facility]ATORY [facility] RBC 4.37 3.85 - 5.15 M/uL 10/22/2023 7:01 AM EDT LAB[facility]ATORY [facility] HGB 13.5 12.0 - 15.3 g/dL 10/22/2023 7:01 AM EDT LAB[facility] HCT 40.0 36.0 - 45.2 % 10/22/2023 7:01 AM EDT LAB[facility]ATORY [facility] MCV 91.5 81.5 - 97.5 fL 10/22/2023 7:01 AM EDT LAB[facility]ATORY [facility] MCH 30.9 27.0 - 34.0 pg 10/22/2023 7:01 AM EDT LAB[facility] MCHC 33.8 32.0 - 36.0 g/dL 10/22/2023 7:01 AM EDT LAB[facility] RDW 13.0 11.5 - 15.5 % 10/22/2023 7:01 AM EDT LAB[facility] PLT 264 140 - 400 K/uL 10/22/2023 7:01 AM EDT LAB[facility] MPV 9.7 6.6 - 11.1 fL 10/22/2023 7:01 AM EDT LAB[facility] nRBCs 0 <=0 /100 WBCs 10/22/2023 7:01 AM EDT LAB[facility] Blood Venous blood specimen / Unknown Venipuncture / Unknown 10/22/2023 6:20 AM EDT 10/22/2023 6:41 AM EDT Gita Brantley DO LAB BLOOD ORDERABLES Performing Organization Address City/[facility]/ZIP Co de Phone Number LABORATORY [facility] [address] [place] [address] * EKG (10/22/2023 2:52 AM EDT) 10/22/2023 2:52 AM EDT Narrative Procedure Note Harshil Min MD - 10/22/2023 2:52 AM EDT REASON FOR STUDY: TACHY CONCLUSIONS: Normal sinus rhythm Nonspecific ST and T wave abnormality Abnormal ECG When compared with ECG of 13-Feb-2013 15:00, Non-specific change in ST segment in Anterior leads T wave inversion now evident in Anterior leads Ventricular Rate: 75 Atrial Rate: 75 ME Interval: 120 QRS Duration: 84 QT/QTc: 394/439 ms P-R-T Pollock: 29 : 13 : 4 degrees Gita Brantley DO [facility]KG [facility] documented in this encounter Visit Diagnoses Diagnosis Dissection of carotid artery (HCC)- Primary Dissection of carotid artery Aphasia Chest pain Chest pain, unspecified Dissection of carotid artery (HCC) Dissection of carotid artery Occlusion and stenosis of left carotid artery Occlusion and stenosis of carotid artery without mention of cerebral infarction jail (current) use of aspirin Acquired hypothyroidism Unspecified hypothyroidism History of migraine Personal history of other disorders of nervous system and sense organs History of depression Personal history of other mental disorder Transient speech disturbance documented in this encounter Administered Medications Inactive Administered Medications - up to 3 most recent administrations Medication Order MAR Action Action Date Dose Rate Site Acetaminophen (Tylenol) tab 650 mg 650 mg, Oral, Q4H PRN Pain, Mild, Pain, Moderate, Headache, Fever >38C(100.5F), Starting on Fri10/21/23 at 2312, Until Fri10/23/23 at 1817, Maximum of 4 grams (4000 mg) per day. Given 10/22/2023 4:34 PM EDT 650 mg Given 10/22/2023 7:22 AM EDT 650 mg Given 10/21/2023 11:50 PM EDT 650 mg aspirin chew tab 324 mg 324 mg, Oral, Daily(AM), First dose (after last modification) on Fri10/22/23 at 0900, Until Discontinued Given 10/23/2023 8:01 AM EDT 324 mg Given 10/22/2023 7:33 AM EDT 324 mg aspirin chew tab 81 mg 81 mg, Oral, Daily(AM), First dose (after last modification) on Fri10/24/23 at 0900, Until Discontinued atorvaSTATin (Lipitor) tab 40 mg 40 mg, Oral, Q1700, First dose (after last modification) on Fri10/22/23 at 1700, Until Discontinued Given 10/22/2023 4:33 PM EDT 40 mg diphenhydrAMINE (Benadryl) cap 25 mg 25 mg, Oral, ONCE, On Fri10/22/23 at 1915, For 1 dose Given 10/22/2023 6:49 PM EDT 25 mg Docusate Sodium (Colace) cap 100 mg 100 mg, Oral, BID (.AM/PM), First dose on Fri10/22/23 at 0900, Until Discontinued, For oral administration ONLY, if route of administration is other than oral and alternative product must be ordered. Given 10/23/2023 8:01 AM EDT 100 mg Given 10/22/2023 9:11 PM EDT 100 mg Given 10/22/2023 9:00 AM EDT 100 mg hEParin inj 5,000 Units 5,000 Units, Subcutaneous, Q8H, First dose on Fri10/23/23 at 0715, Until Discontinued Given 10/23/2023 8:01 AM EDT 5,000 Units Abdomen Left Lower home medication stored in pharmacy Daily(AM), First dose on Fri10/22/23 at 0900, Until Discontinued, Routine, when the patient is ready for discharge contact pharmacy ketorolac (Toradol) 30 MG/ML inj 30 mg 30 mg, IV Push, ONCE, On Fri10/22/23 at 1915, For 1 dose Given 10/22/2023 6:49 PM EDT 30 mg levothyroxine (Levoxyl) tab 75 mcg 75 mcg, Oral, [id number], First dose on Fri10/22/23 at 0630, Until Discontinued Given 10/23/2023 6:47 AM EDT 75 mcg Given 10/22/2023 6:09 AM EDT 75 mcg magnesium sulfate 1 g in d5w 100mL LOCKED DOSE 1 g, IV Piggyback, ONCE, 1 dose, On Fri10/22/23 at 1915, Administer over 60 Minutes New Bag 10/22/2023 7:02 PM EDT 1 g 100 mL/hr NSS 0.9% 1,000 mL bolus infusion Intravenous, at 1,000 mL/hr Administer over 60 Minutes, Administer entire volume within 60 minutes or less., ONCE, 1 dose, On Fri10/22/23 at 1915 Restarted 10/22/2023 7:20 PM EDT 1000 mL/hr Rate Verify 10/22/2023 7:14 PM EDT 1000 mL/hr New Bag 10/22/2023 6:57 PM EDT 1,000 mL 1000 mL/hr ondansetron (Zofran) inj 4 mg 4 mg, IV Push, ONCE, On Fri10/22/23 at 0815, For 1 dose Given 10/22/2023 8:15 AM EDT 4 mg oxygen GAS Inhalation, OXYGEN, First dose on Fri10/22/23 at 0200, Until Discontinued, Device/Managed by: Low Flow Device, Goal SPO2 (%): 94 or greater, Starting Device: Nasal Cannula, Initial Flow Rate (LPM): 2, Lowest Support: Nasal Cannula: Flow 0-6 LPM. Titrate up/down by 1 LPM., Titration Interval: Q2 minutes and as needed., Notify Provider: For sudden DECREASE in resting SPO2 to less than 85% and when escalating delivery device., Wean patient off Oxygen when the oxygen saturation is greater than or equal to 93% Polyethylene Glycol 3350 (Miralax) oral powder 17 g 17 g (1 Packet), Oral, Daily(AM), First dose on Fri10/22/23 at 0900, Until Discontinued, Mix in 8 oz of water, juice, soda, coffee, or tea. Given 10/23/2023 8:01 AM EDT 17 g Given 10/22/2023 9:00 AM EDT 17 g prochlorperazine (Compazine) inj 10 mg 10 mg, IV Push, ONCE, On Fri10/22/23 at 1915, For 1 dose Given 10/22/2023 6:49 PM EDT 10 mg sodium chloride 0.9 % flush/inj 3 mL 3 mL, IV Push, PRN Other, Line Patency, Starting on Fri10/21/23 at 2232, Until Fri10/23/23 at 1817, Do not flush if lock, PICC, or central line not in place, IV infusing or unable to flush documented in this encounter Active and Recently Administered Medications Times are shown in EDT. Scheduled Medication Order 10/21/2023 10/22/2023 10/23/2023 aspirin chew tab 324 mg (CANCELED) 324 mg, Oral, Daily(AM), First dose (after last modification) on Fri10/22/23 at 0900, Until Discontinued 07 (Given - Provider: Harper Guillen RN) 800 (Given - Provider: Harper Guillen RN) aspirin chew tab 81 mg 81 mg, Oral, Daily(AM), First dose (after last modification) on Fri10/24/23 at 0900, Until Discontinued atorvaSTATin (Lipitor) tab 40 mg (CANCELED) 40 mg, Oral, Q1700, First dose (after last modification) on Fri10/22/23 at 1700, Until Discontinued 1633 (Given - Provider: Harper Guillen RN) diphenhydrAMINE (Benadryl) cap 25 mg (COMPLETED) 25 mg, Oral, ONCE, On Fri10/22/23 at 1915, For 1 dose 1849 (Given - Provider: Harper Guillen RN) Docusate Sodium (Colace) cap 100 mg 100 mg, Oral, BID (.AM/PM), First dose on Fri10/22/23 at 0900, Until Discontinued, For oral administration ONLY, if route of administration is other than oral and alternative product must be ordered. 09 (Given - Provider: Harper Guillen RN)2110 (Given - Provider: Nelly Sahni RN) 800 (Given - Provider: Harper Guillen RN) hEParin inj 5,000 Units 5,000 Units, Subcutaneous, Q8H, First dose on Fri10/23/23 at 0715, Until Discontinued 800 (Given - Provid er: Harper Guillen RN)1400 (Due) home medication stored in pharmacy Daily(AM), First dose on Fri10/22/23 at 0900, Until Discontinued, Routine, when the patient is ready for discharge contact pharmacy 09 (Order Check Addressed - Provider: Harper Guillen RN) 899 (Order Check Addressed - Provider: Harper Guillen RN) ketorolac (Toradol) 30 MG/ML inj 30 mg (COMPLETED) 30 mg, IV Push, ONCE, On Fri10/22/23 at 1915, For 1 dose 1849 (Given - Provider: Harper Guillen RN) levothyroxine (Levoxyl) tab 75 mcg 75 mcg, Oral, [id number], First dose on Fri10/22/23 at 0630, Until Discontinued 0609 (Given - Provider: Latha Lira RN) 0647 (Given - Provider: Lila Kyle RN) magnesium sulfate 1 g in d5w 100mL LOCKED DOSE (COMPLETED) 1 g, IV Piggyback, ONCE, 1 dose, On Fri10/22/23 at 1915, Administer over 60 Minutes 190 (New Bag - Provider: Harper Guillen RN) NSS 0.9% 1,000 mL bolus infusion (COMPLETED) Intravenous, at 1,000 mL/hr Administer over 60 Minutes, Administer entire volume within 60 minutes or less., ONCE, 1 dose, On Fri10/22/23 at 1915 1857 (New Bag - Provider: Harper Guillen RN)1913 (Rate Verify - Provider: Nelly Sahni RN)1913 (Paused - Provider: Nelly Sahni RN)1919 (Restarted - Provider: Nelly Sahni RN)2015 (Stopped - Provider: Nelly Sahni, DOROTHY) ondansetron (Zofran) inj 4 mg (COMPLETED) 4 mg, IV Push, ONCE, On Fri10/22/23 at 0815, For 1 dose 0815 (Given - Provider: Harper Guillen RN) oxygen GAS Inhalation, OXYGEN, First dose on Fri10/22/23 at 0200, Until Discontinued, Device/Managed by: Low Flow Device, Goal SPO2 (%): 94 or greater, Starting Device: Nasal Cannula, Initial Flow Rate (LPM): 2, Lowest Support: Nasal Cannula: Flow 0-6 LPM. Titrate up/down by 1 LPM., Titration Interval: Q2 minutes and as needed., Notify Provider: For sudden DECREASE in resting SPO2 to less than 85% and when escalating delivery device., Wean patient off Oxygen when the oxygen saturation is greater than or equal to 93% 0200 (Oxygen Off - Provider: Latha Lira RN)0800 (Oxygen Off - Provider: Harper Guillen RN)1600 (OR/Procedure - Provider: Harper Guillen RN)2300 (Oxygen Off - Provider: Lila Kyle RN) 0000 (Oxygen Off - Provider: Lila Kyle RN)0800 (Oxygen Off - Provider: Harper Guillen RN) Polyethylene Glycol 3350 (Miralax) oral powder 17 g 17 g (1 Packet), Oral, Daily(AM), First dose on Fri10/22/23 at 0900, Until Discontinued, Mix in 8 oz of water, juice, soda, coffee, or tea. 0900 (Given - Provider: Harper Guillen RN) 08 (Given - Provider: Harper Guillen RN) prochlorperazine (Compazine) inj 10 mg (COMPLETED) 10 mg, IV Push, ONCE, On Fri10/22/23 at 1915, For 1 dose 1849 (Given - Provider: Harper Guillen RN) PRN Medication Order 10/21/2023 10/22/2023 10/23/2023 Acetaminophen (Tylenol) tab 650 mg 650 mg, Oral, Q4H PRN Pain, Mild, Pain, Moderate, Headache, Fever >38C(100.5F), Starting on Fri10/21/23 at 2312, Until Fri10/23/23 at 1817, Maximum of 4 grams (4000 mg) per day. 2350 (Given - Provider: Sara Chen RN) 0722 (Given - Provider: Marizol Linares RN)1634 (Given - Provider: Harper Guillen RN) hEParin 3000 units in 1000 mL NSS infusion (CANCELED) ONCE PRN INTRA PROCEDURE, Starting on Fri10/22/23 at 1407, Until Fri10/22/23 at 1456, Intra-Op 1407 (Given - Provider: Chance Connolly MD) Ioversol (Optiray 320) inj (CANCELED) ONCE PRN INTRA PROCEDURE, Starting on Fri10/22/23 at 1447, Until Fri10/22/23 at 1456, Intra-Op 1447 (Given - Provider: Nia Klein MD) lidocaine 1 % 10 mL, sodium bicarbonate 1 mL inj (CANCELED) ONCE PRN INTRA PROCEDURE, Starting on 10/22/23 at 1448, Until Fri10/22/23 at 1456, Intra-Op 1448 (Given - Provider: Nia Klein MD) sodium chloride 0.9 % flush/inj 3 mL 3 mL, IV Push, PRN Other, Line Patency, Starting on 10/21/23 at 2232, Until Elsa 10/23/23 at 1817, Do not flush if lock, PICC, or central line not in place, IV infusing or unable to flush documented in this encounter Additional Health Concerns [...] and were consensually agreed upon. Care Teams Environmental Engineering Intern Relationship Specialty Start Date End Date Petar Riley MD [address] [place] [address] [place] Samuels [id number] PCP - General Family Medicine 04/21/23 documented as of this encounter
--- OUTSIDE RECORDS SUMMARY | 2023-10-25 16:02 | External Medical Summary | Summary of Care ---
Author Name Unknown Organization [facility] Address [address] [place] [address] Phone [phone] Care Team Providers Care Medical Assistant Dermatology Name Role Phone Petar Riley MD Primary Care Provide r Reason for Visit * Reason Onset Date Comments Information 07/02/2023 Encounter Details Date Type Department Care Team (Late st Contact Info) Description 07/02/2023 Telephone Family Medicine [address] [phone] Petar Riley MD [address] [place] [address] [place] [address] Information Allergies Active Allergy Reactions Criticality Noted Date Comments Amoxicillin-Pot Clavulanate Rash Low 04/24/20 21 documented as of this encounter (statuses as of 07/03/2023) Medications Medication Sig Dispensed Refills Start Date End Date Status Levothyroxine Sodium 75 MCG Oral Tablet (Levoxyl)Indications:A cquired hypothyroidism TAKE 1 TABLET BY MOUTH IN THE MORNING ON AN EMPTY STOMACH. 90 Tablet 3 04/21/2023 Active Sulfamethoxazole-Trime thoprim 800-160 MG Oral Tablet (Bactrim DS) Take 1 Tablet by mouth in the morning and 1 Tablet before bedtime. Do all this for 3 days. 6 Tablet 0 06/30/2023 07/03/2023 Active documented as of this encounter (statuses as of 07/03/2023) Active Problems Problem Noted Date Diagnosed Date Acquired hypothyroidism 09/21/2021 Acute bronchitis, antibiotics not [...] as of this encounter (statuses as of 07/03/2023) Resolved Problems Problem Noted Date Diagnosed Date [...] ligation Flu vaccine administered 04/18/2014 Renetta Ferrara RN Tdap vaccine administered 04/18/2014 Tatum Josias, RN ICD-10 update of inactive term Threatened premature labor, antepartum 01/07/2011 01/18/2011 Overview: Admitted to [facility] and transferred to [place] at 33 wks, kept there until 35 [...] at 20wk. Delivered at 36wks Per prior [facility] consultation, Cynthia's three (3) prior deliveries noted above do not put her at any significantly increased risk for delivery as they were >36 wks gestation. GBS done 12/15/10 - negative ICD-10 update of inactive term Threatened , antepartum 06/26/2009 02/13/2013 Overview: ED 06/24 with vag [place]. [place] 85616. Redrawn 06/26 for trending. U/s 06/26 wnl, [...] as of this encounter (statuses as of 07/03/2023) Immunizations Name Administration Dates Next Due COVID-19 [...] on file documented as of this encounter Miscellaneous Notes * Telephone Encounter - Lydia Kenny, student services director - 07/03/2023 7:58 AM EST Pt called and was transferred to [facility] to discuss possible side effects of the Bactrim / uti Thank you, Lydia Kenny CPhT [employer] [facility] 07/03/2023,7:59 AM * Telephone Encounter - Lydia Kenny PHARM Tech - 07/02/2023 10:08 AM EST Pt called and was transferred to [facility] Thank you, Lydia Kenny CPhT [employer] [facility]) 07/02/2023,10:08 AM documented in this encounter Plan of Treatment Health Maintenance Due Date Last Done Comments Hepatitis B (1 of 3 - 3-dose series) 1979 Lipid Panel 1979 HPV/Co-Test 08/27/2009 Mammogram 2019 Depression Screening 04/15/2020 04/15/2019 TSH 09/21/2022 09/21/2021, 06/17, 02/07/2020, Additional history exists COVID-19 Vaccine ( season) 2023 11/22/2020, 10/25/2020 Influenza Vaccine (FLU shot) (#1) 2023 04/18/2014, 05/26/2009, 04/04/2009 Cervical Cancer Screening 02/15/2023 Pap Smear 02/15/2023 02/16/2020, 02/15, 05/20/2017, Additional history exists Diabetes Screening 08/20/2025 08/20/2022, 0 07/14/2021, 06/04/1998, Additional history exists DTaP,Tdap,and Td Vaccines (3 - Td or Tdap) 11/27/2027 11/26/2017, 04/18/2014, 06/16/2006 GARDASIL-HPV IMMUNIZATION SERIES Aged Out No longer [...] Not on filedocumented as of this encounter Additional Health Concerns Infection Onset Date Last Indicated Resolved Time COVID-19 (confirmed) 10/08/2021 10/08/2021 documented as of this encounter Advance Directives Latest Code Status on File Code Status Date Activated Date Inactivated Comments Full Code 12/18/2010 5:48 AM 01/01/2011 10:02 PM This order reflects the patients wishes and were consensually agreed upon. Care Teams Medical Assistant Dermatology Relationship Specialty Start Date End Date Petar Riley MD [address] [place] [address] [place] Samu[place] [id number] PCP - General Family Medicine 04/21/23 documented as of this encounter
--- OUTSIDE RECORDS SUMMARY | 2023-10-25 16:02 | External Medical Summary ---
Author Name Unknown Address Unknown Organization [id number][place] [place] [address] [facility] [address] Laboratory Report Ordering Provider Test Date Status OUMOU RIDDLE 06/30/2023 08:58:13 Final <10,000 colonies/ml mixed no rmal torsten Observation Date Value Abnormality Reference (Units ) Status Bacteria identified in Specimen by Culture 06/30/2023 08:58:13 [id number]^ESCHE RICHIA COLI Abnormal Final 10,000 to 100,000 colonies/m L Escherichia coli Performing Location [facility] [place] [address] [facility] [address] Ordering Provider Test Date Status OUMOU RIDDLE 06/30/2023 08:58:13 Final Observation Date Value Abnormality Reference (Units ) Status Ampicillin 06/30/2023 08:58:13 <=2 Susceptible Final Cefazolin 06/30/2023 08:58:13 <=4 Susceptible Final Cefepime susceptibility 06/30/2023 08:58:13 <=1 Susceptible Final Ceftriaxone suceptibility 06/30/2023 08:58:13 <=1 Susceptible Final Ciprofloxacin 06/30/2023 08:58:13 <=0.25 Susceptible Final Due to serious side effects, the FDA has advised against using Ciprofloxacin to treat uncomplicated UTIs and respiratory tract infections unless there are no alternative treatment options. Gentamicin susceptibility 06/30/2023 08:58:13 <=1 Susc eptible Final Nitrofurantoin susceptibility 06/30/2023 08:58:13 <=16 Susceptible Final Piperacillin + Tazobactamsusceptibility 06/30/2023 08:58:13 <=4 Susceptible Final TMP-SMZ susceptibility 06/30/2023 08:58:13 <=20 Suscept ible Final Test: Culture, Urine, Quanti tative
Specimen Source: Urine, Clean Catch
Specimen Type: Urine
Specimen Date: 06/30/2023 8:58 AM
Result Date: 07/02/2023 9:27 AM
Result Status: Final result
Abnormal: Yes
Resulting Lab: [facility] [place]
[address]
[facility] [address]

CULTURE

10,000 to 100,000 colonies/mL Escherichia coli (Abnormal)

<10,000 colonies/ml mixed normal torsten

SUSCEPTIBILITY

Escherichia coli
METHOD MICROBROTH DILUTIONS

AMPICILLIN <=2 Susceptible
CEFAZOLIN <=4 Susceptible
CEFEPIME <=1 Susceptible
CEFTRIAXONE <=1 Susceptible
CIPROFLOXACIN <=0.25 Susceptible [1]
GENTAMICIN <=1 Susceptible
NITROFURANTOIN <=16 Susceptible
PIPERACILLIN TAZOBACTAM <=4 Susceptible
TRIMETH/SULFAMETHOXAZOLE <=20 Susceptible

[1] Due to serious side effects, the FDA has advised against using
Ciprofloxacin to treat uncomplicated UTIs and respiratory tract infections
unless there are no alternative treatment options.

null Performing Location [facility] [place] [address] [facility] [address]
--- OUTSIDE RECORDS SUMMARY | 2023-10-25 16:02 | External Medical Summary ---
Author Name Unknown Address Unknown Organization [id number]:[facility] [place] [facility] [address] [address] Laboratory Report Ordering Provider Test Date Status GENESIS HUNT 10/20/2023 10:59:50 Final Observation Date Value Abnormality Reference (Units ) Status Follitropin [Units/volume] in Serum or Plasma by 2nd IRP 10/20/2023 10:59:50 14.8 (mIU/mL) Final Follicular Phase: 3.5- 12.5 mIU/mL
Ovulation Phase: 4.7- 21.5 mIU/mL
Luteal Phase: 1.7- 7.7 mIU/mL
Postmenopausal: 25.8-134.8 mIU/mL Performing Location [facility] [place] - [address] [place] [address]
--- OUTSIDE RECORDS SUMMARY | 2023-10-25 16:02 | External Medical Summary ---
Author Name Unknown Address Unknown Organization [id number][place] [place] [address] [place] [address] Laboratory Report Ordering Provider Test Date Status KAITLIN VALEVIRGIL 10/21/2023 09:56:02 Final Observation Date Value Abnormality Reference (Units) Status Bacteria identified in Specimen by Culture 10/21/2023 09:56:02 No significant growth Final Test: Culture, Urine, Quant itative
Specimen Source: Urine, Clean Catch
Specimen Type: Urine
Specimen Date: 10/21/2023 9:56 AM
Result Date: 10/23/2023 7:30 AM
Result Status: Final result
Resulting Lab: [facility] [place]
[address]
[facility] [address]

CULTURE

No significant growth

null Performing Location [facility] [place] [address] [place] [id number]
--- OUTSIDE RECORDS SUMMARY | 2023-10-25 16:02 | External Medical Summary ---
Author Name Unknown Address Unknown Organization [id number]:[facility] [place] [address] [place] [address] Laboratory Report Ordering Provider Test Date Status SHLOMO VALE 10/20/2023 10:59:50 Final Deficient: <20 ng/mL
Ins ufficient: 20-29 ng/mL
Recommended/Optimum:30-50 ng/mL

Vitamin D intoxication is rare. If suspicious of Vitamin D toxicity, evaluation of serum Calcium and PTH is recommended. Observation Date Value Abnormality Reference (Units ) Status 25-OH Vitamin D total 10/20/2023 10:59:50 37 >19 (ng/mL) Final Performing Location [facility] [place] [address] [place] [address]
--- OUTSIDE RECORDS SUMMARY | 2023-10-25 16:02 | External Medical Summary ---
Author Name Unknown Address Unknown Organization [id number]:[facility] [place] [address] [facility] [address] Laboratory Report Ordering Provider Test Date Status MARI ALAS 10/20/2023 10:59:50 Final Observation Date Value Abnormality Reference (Units ) Status TSH 10/20/2023 10:59:50 2.78 0.27-4.20 (uIU/mL) Final Performing Location [facility] [place] [address] [facility] [address]
--- OUTSIDE RECORDS SUMMARY | 2023-10-25 16:02 | External Medical Summary | Summary of Care ---
Author Name Unknown Organization [facility] Address [address] [place] [address] Phone [phone] Care Team Providers Care Commissary Clerk Name Role Phone Petar Riley MD Primary Care Provide r Reason for Visit * Reason Onset Date Comments Advice 10/20/2023 Encounter Details Date Type Department Care Team (Late st Contact Info) Description 10/20/2023 Telephone Gynecology/Obstetrics [facility] [address] [place] [address] Services, Scheduling [address] [place] [address] Advice Allergies Active Allergy Reactions Criticality Noted Date Comments Amoxicillin-Pot Clavulanate Rash Low 04/24/20 21 documented as of this encounter (statuses as of 10/20/2023) Medications Medication Sig Dispensed Refills Start Date End Date Status Levothyroxine Sodium 75 MCG Oral Tablet (Levoxyl)Indications:A cquired hypothyroidism TAKE 1 TABLET BY MOUTH IN THE MORNING ON AN EMPTY STOMACH. 90 Tablet 3 09/29/2023 Active Norethindrone Acetate 5 MG Oral TabletIndications:Abno rmal uterine bleeding Take 1 Tablet by mouth in the morning. 30 Tablet 0 10/16/2023 Active Ondansetron 4 MG Oral Tablet Disintegrating (Zofran) Place 1 Tablet on tongue every 8 hours as needed for Nausea. dissolve on tongue. 10 Tablet 0 10/20/2023 Active documented as of this encounter (statuses as of 10/20/2023) Active Problems Problem Noted Date Diagnosed Date [...] as of this encounter (statuses as of 10/20/2023) Resolved Problems Problem Noted Date Diagnosed Date [...] RN Tdap vaccine administered 04/18/2014 Renetta Ferrara, DOROTHY ICD-10 update of inactive term Threatened premature labor, antepartum 01/07/2011 01/18/2011 Overview: Admitted to [facility] and transferred to [place] at 33 wks, kept there until 35 [...] at 20wk. Delivered at 36wks Per prior [facility] consultation, Cynthia's three (3) prior deliveries noted above do not put her at any significantly increased risk for delivery as they were >36 wks gestation. GBS done 12/15/10 - negative ICD-10 update of inactive term Threatened , antepartum 06/26/2009 02/13/2013 Overview: [place] 06/24 [place]. [place] [address]. Redrawn 1/11 for trending. U/s 06/26 wnl, cx closed. [...] as of this encounter (statuses as of 10/20/2023) Immunizations Name Administration Dates Next Due COVID-19 [...] encounter Miscellaneous Notes * Telephone Encounter - Cynthia Villa RN - 10/20/2023 1:07 PM EDT Pt is aware and agreeable to see pcp. * Telephone Encounter - Willie Reza PA-C - 10/20/2023 12:13 PM EDT If questionable UTI with fever/chills and back pain she really should be seen as to evaluate for bladder vs kidney infection. It is important to know evaluate pt and determine which ABX would be mostappropriate. Please let her know. Would suggest PCP or Urgent care follow up. * Telephone Encounter - Lilli Magallon RN - 10/20/2023 11:08 AM EDT Patient called back in. Made aware of message from Willie, and verbalized understanding to all. Patient is now asking for uti testing. She reports she thinks that her nausea could be from a uti. Deniesburning with urination or urgency, but states that she had nausea before with a past uti. Denies fever and chills at this time, but reports that she thinks she had a fever and chills over the weekend. She had her labs done this morning at [facility] and while there they gave her a urine cup toprovide a sample if willie is wiling to order labs. Pended order for urine testing. Please advise if agreeable. * Telephone Encounter - Willie Reza PA-C - 10/20/2023 9:26 AM EDT I sent a few tabs of Zofran to help with nausea. She should stop the Agyestin in case its making nausea worse. She may may see increase in vaginal bleeding now that she stopped. Pt does need to do labs so we can make sure not anemic. If not able to keep food or fluids down especially fluids or any HMB soaking a pad an hour or more,passing clots larger than egg needs to be seen in ER. Willie Reza PA-C * Telephone Encounter - Cynthia Villa RN - 10/20/2023 9:06 AM EDT Pt is calling stating that she is having nausea. She is asking if the provider can order zofran forher. She is having labs and her US done. She stopped her hormone because she thought it was coming from there. Only took 2. Has not taken it since yesterday am but still nauseate. She has back pain. + cramping. Denies any fevers. She feels the bleeding is now stopping. She plans to keep the appt for her US. Will review with Willie and call her back. Pt can be reached at [phone] * Telephone Encounter - Harper Ren OSA - 10/20/2023 8:44 AM EDT Pt stated she is still having bleeding and nausea. Pt is requesting to have zofran to help with nausea. Please contact pt to assist. documented in this encounter Plan of Treatment Health Maintenance Due Date Last Done Comments Lipid Panel 1979 Hepatitis B (1 of 3 - 19+ 3-dose series) 08/27/1998 HPV/Co-Test 08/27/2009 Mammogram 2019 Depression Screening 04/15/2020 04/15/2019 TSH 09/21/2022 09/21/2021, 06/17, 02/07/2020, Additional history exists COVID-19 Vaccine (2022- season) 2023 11/22/2020, 10/25/2020 Cervical Cancer Screening 02/15/2023 Pap Smear 02/15/2023 02/16/2020, 02/15, 05/20/2017, Additional history exists Influenza Vaccine (FLU shot) (Season Ended) 2024 04/18/2014, 05/26/2009, 04/04/2009 Diabetes Screening 08/20/2025 08/20/2022, 0 07/14/2021, 06/04/1998, [...] and were consensually agreed upon. Care Teams Commissary Clerk Relationship Specialty Start Date End Date Petar Riley MD [address] [place] [address] [place] [phone] PCP - General Family Medicine 04/21/23 documented as of this encounter
--- OUTSIDE RECORDS SUMMARY | 2023-10-25 16:02 | External Medical Summary ---
Author Name Unknown Address Unknown Organization K01:[place] [place] [facility] [address] [facility] [address] Laboratory Report Ordering Provider Test Date Status ERICA WILLIAMSON 10/22/2023 06:20:00 Final Observation Date Value Abnormality Reference (Units ) Status WBC, Total 10/22/2023 06:20:00 6.00 4.00-10.80 (K/uL) Final RBC 10/22/2023 06:20:00 4.37 3.85-5.15 (M/uL) Final Hemoglobin 10/22/2023 06:20:00 13.5 12.0-15.3 (g/dL) Final HCT 10/22/2023 06:20:00 40.0 36.0-45.2 (%) Final MCV 10/22/2023 06:20:00 91.5 81.5-97.5 (fL) Final MCH 10/22/2023 06:20:00 30.9 27.0-34.0 (pg) Final MCHC 10/22/2023 06:20:00 33.8 32.0-36.0 (g/dL) Final RDW 10/22/2023 06:20:00 13.0 11.5-15.5 (%) Final Platelets 10/22/2023 06:20:00 264 140-400 (K/uL) Final MPV 10/22/2023 06:20:00 9.7 6.6-11.1 (fL) Final Nucleated erythrocytes/100 leukocytes [Ratio] in Blood by Automated count 10/22/2023 06:20:00 0 <=0 (/100 WBCs) Final Performing Location [facility] [place] [address] [place] [address]
--- OUTSIDE RECORDS SUMMARY | 2023-10-25 16:02 | External Medical Summary ---
Author Name Unknown Address Unknown Organization K01:LABORATORY [facility] [place] - [address] [place] [address] Laboratory Report Ordering Provider Test Date Status GENESIS HUNT 10/20/2023 10:59:50 Final Follicular Phase: 12.4-233 p g/mL
Ovulation Phase: 41.0-398 pg/mL
Luteal Phase: 22.3-341 pg/mL

Post menopausal: <50 pg/mL

:
1st Trimester: 154-3243 pg/mL
2nd Trimester: 1561-88229 pg/mL
3rd Trimester: >8525 pg/mL Observation Date Value Abnormality Reference (Units ) Status Estradiol 10/20/2023 10:59:50 12.6 (pg/mL) Final Performing Location LABORATORY [facility] [place] - [address] [place] [address]
--- OUTSIDE RECORDS SUMMARY | 2023-10-25 16:02 | External Medical Summary | Summary of Care ---
Author Name Unknown Organization [facility] Address [address] [place] [address] Phone [phone] Care Team Providers Care Rn Float Name Role Phone Petar Riley MD Primary Care Provide r Reason for Visit * Reason Comments Outpatient Testing Encounter Details Date Type Department Care Team (Late st Contact Info) Description 10/20/2023 11:20 AM EDT Laboratory Laboratory [address] [place] [id number] [address] [place] [address] [employer] Other*[id number]; Acquired hypothyroidism; Abnormal uterine bleeding Allergies Active Allergy Reactions Criticality Noted Date [...] labor, antepartum 01/07/2011 01/18/2011 Overview: Admitted to [facility] and transferred to [place] at 33 wks, kept there until 35 [...] at 20wk. Delivered at 36wks Per prior [facility] consultation, Cynthia's three (3) prior deliveries noted above do not put her at any significantly increased risk for delivery as they were >36 wks gestation. GBS done 12/15/10 - negative ICD-10 update of inactive term Threatened , antepartum 06/26/2009 02/13/2013 Overview: ED 06/24 [place]. [place] [address]. Redrawn 06/26 for trending. U/s 06/26 wnl, [...] as of this encounter Plan of Treatment Pending Results Name Type Priority Associated Diagnoses Date /Time MYCODE SUBSEQUENT ADULT Lab Routine [employer] Other*[id number] 10/20/2023 10:59 AM EDT TSH WITH FREE T4 IF INDICATED Lab Routine Acquired hypothyroidism 10/20/2023 10:59 AM EDT FSH Lab Routine Abnormal uterine bleeding 10/20/2023 10:59 AM EDT ESTRADIOL Lab Routine Abnormal uterine bleeding 10/20/2023 10:59 AM EDT MYCODE SST1 Lab Routine [employer] Other*[id number] 10/20/2023 10:59 AM EDT MYCODE SST2 Lab Routine [employer] Other*[id number] 10/20/2023 10:59 AM EDT Health Maintenance Due Date Last Done Comments [...] Not on filedocumented as of this encounter Visit Diagnoses Diagnosis [employer] Other*[id number] Acquired hypothyroidism Unspecified hypothyroidism Abnormal uterine bleeding Unspecified disorder of menstruation and other abnormal bleeding from female genital tract documented in this encounter Additional Health Concerns Infection Onset Date Last Indicated Resolved Time COVID-19 (confirmed) 10/08/2021 10/08/2021 documented as of this encounter Advance Directives Latest Code Status on File Code Status Date Activated Date Inactivated Comments Full Code 12/18/2010 5:48 AM 01/01/2011 10:02 PM This order reflects the patients wishes and were consensually agreed upon. Care Teams Rn Float Relationship Specialty Start Date End Date Petar Riley MD [address] [place] [address] [place] [address] PCP - General Family Medicine 04/21/23 documented as of this encounter
--- OUTSIDE RECORDS SUMMARY | 2023-10-25 16:02 | External Medical Summary ---
Author Name Unknown Address Unknown Organization K01:LABORATORY [facility] [place] - [facility] [address] [facility] [address] Laboratory Report Ordering Provider Test Date Status GENESIS HUNT 10/20/2023 10:59:50 Final Observation Date Value Abnormality Reference (Units ) Status WBC, Total 10/20/2023 10:59:50 6.42 4.00-10.80 (K/uL) Final RBC 10/20/2023 10:59:50 4.66 3.85-5.15 (M/uL) Final Hemoglobin 10/20/2023 10:59:50 14.7 12.0-15.3 (g/dL) Final HCT 10/20/2023 10:59:50 43.3 36.0-45.2 (%) Final MCV 10/20/2023 10:59:50 92.9 81.5-97.5 (fL) Final MCH 10/20/2023 10:59:50 31.5 27.0-34.0 (pg) Final MCHC 10/20/2023 10:59:50 33.9 32.0-36.0 (g/dL) Final RDW 10/20/2023 10:59:50 13.3 11.5-15.5 (%) Final Platelets 10/20/2023 10:59:50 283 140-400 (K/uL) Final MPV 10/20/2023 10:59:50 10.1 6.6-11.1 (fL) Final Nucleated erythrocytes/100 leukocytes [Ratio] in Blood by Automated count 10/20/2023 10:59:50 0 <=0 (/100 WBCs) Final Performing Location LABORATORY [facility] [place] - [address] [place] [address]
--- OUTSIDE RECORDS SUMMARY | 2023-10-25 16:02 | External Medical Summary | Summary of Care ---
Author Name Unknown Organization [facility] Address [address] [place] [address] Phone [phone] Care Team Providers Care Hand Scudder Name Role Phone Petar Riley MD Primary Care Provide r Reason for Visit * Reason Onset Date Comments Information 07/02/2023 Encounter Details Date Type Department Care Team (Late st Contact Info) Description 07/02/2023 Telephone Family Medicine [address] [phone] Petar Riley MD [address] [place] [address] [place] [address] Information Allergies Active Allergy Reactions Criticality Noted Date Comments Amoxicillin-Pot Clavulanate Rash Low 04/24/20 21 documented as of this encounter (statuses as of 07/02/2023) Medications Medication Sig Dispensed Refills Start Date [...] as of this encounter (statuses as of 07/02/2023) Active Problems Problem Noted Date Diagnosed Date [...] as of this encounter (statuses as of 07/02/2023) Resolved Problems Problem Noted Date Diagnosed Date [...] labor, antepartum 01/07/2011 01/18/2011 Overview: Admitted to [facility] and transferred to [place] at 33 wks, kept there until 35 [...] at 20wk. Delivered at 36wks Per prior [facility] consultation, Cynthia's three (3) prior deliveries noted above do not put her at any significantly increased risk for delivery as they were >36 wks gestation. GBS done 12/15/10 - negative ICD-10 update of inactive term Threatened , antepartum 06/26/2009 02/13/2013 Overview: ED 06/24 [place]. [place] [address]78. Redrawn 06/26 for trending. U/s 06/26 wnl, [...] as of this encounter (statuses as of 07/02/2023) Immunizations Name Administration Dates Next Due COVID-19 [...] Notes * Telephone Encounter - Lydia Kenny, child protective investigator - 07/02/2023 10:08 AM EST Pt called and was transferred [facility] Squaring She[facility] (formerly [...] and were consensually agreed upon. Care Teams Hand Scudder Relationship Specialty Start Date End Date Petar Riley MD [address] [place] [address] [place] [address] PCP - General Family Medicine 04/21/23 documented as of this encounter
--- OUTSIDE RECORDS SUMMARY | 2023-10-25 16:02 | External Medical Summary ---
Author Name Unknown Address Unknown Organization K01:[facility] [place] [address] [facility] [address] Laboratory Report Ordering Provider Test Date Status SHLOMO VALE 10/20/2023 10:59:50 Final Observation Date Value Abnormality Reference (Units ) Status Iron 10/20/2023 10:59:50 71 33-151 (ug /dL) Final Iron-binding capacity 10/20/2023 10:59:50 387 250-425 (ug/dL) Final Transferrin Sat % 10/20/2023 10:59:50 18 15 -55 (%) Final Performing Location LAB[facility] [place] [address] [facility] [address]
--- OUTSIDE RECORDS SUMMARY | 2023-10-25 16:02 | External Medical Summary | Summary of Care ---
Author Name Unknown Organization [facility] Address [address] [place] [address] Phone [phone] Care Team Providers Care Dough Sheeter Name Role Phone Petar Riley MD Primary Care Provide r Reason for Visit * Reason Onset Date Comments Test Results 07/01/2023 Encounter Details Date Type Department Care Team (Late st Contact Info) Description 07/01/2023 Telephone Family Medicine [address] [phone] Petar Riley MD [address] [place], [place] [address] [address] Test Results Allergies Active Allergy Reactions Criticality Noted Date Comments Amoxicillin-Pot Clavulanate Rash Low 04/24/20 21 documented as of this encounter (statuses as of 09/30/2023) Medications No known medicationsdocumented as of this encounter (statuses as of 09/30/2023) Active Problems Problem Noted Date Diagnosed Date [...] as of this encounter (statuses as of 09/30/2023) Resolved Problems Problem Noted Date Diagnosed Date [...] x 3, no PTD; all deliveries >36wks M 10/29/13: Recommend weekly IM 17-alpha hydroxyprogesterone 250mg [...] [facility] and transferred to [place] at 33 wks, kept there until 35 [...] at 20wk. Delivered at 36wks Per prior [facility] consultation, Cynthia's three (3) prior deliveries noted above do not put her at any significantly increased risk for delivery as they were >36 wks gestation. GBS done 12/15/10 - negative ICD-10 update of inactive term Threatened , antepartum 06/26/2009 02/13/2013 Overview: ED 06/24 with vag bleeding. Hcg 03474. Redrawn 06/26 for trending. U/s 06/26 wnl, [...] as of this encounter (statuses as of 09/30/2023) Immunizations Name Administration Dates Next Due COVID-19 [...] encounter Miscellaneous Notes * Telephone Encounter - Britton Jimenez OSA - 07/01/2023 1:17 PM EST Spoke with Cynthia Barron pt request lab test results pt can be reached at [phone] Mobile documented in this encounter Plan of Treatment Upcoming Encounters Date Type Department Care Team (Late st Contact Info) Description 10/16/2023 1:45 PM EDT Office Visit Gynecology/Obstetrics [address] [place] [address] Beatrice Ornelas CRNP [address] [place] [address] Health Maintenance Due Date Last Done Comments [...] and were consensually agreed upon. Care Teams Dough Sheeter Relationship Specialty Start Date End Date Petar Riley MD [address] [place] [address] [place] [address] PCP - General Family Medicine 04/21/23 documented as of this encounter
--- OUTSIDE RECORDS SUMMARY | 2023-10-25 16:02 | External Medical Summary | Summary of Care ---
Author Name Unknown Organization [facility] Address [address] [place] [address] Phone [phone] Care Team Providers Care Sand Cleaning Machine Operator Name Role Phone Petar Riley MD Primary Care Provide r Reason for Visit * Reason Onset Date Comments Medication Refill 04/21/2023 Encounter Details Date Type Department Care Team (Late st Contact Info) Description 04/21/2023 Refill Family Medicine [address] [phone] Loreto Miller[address] [address] Acquired hypothyroidism Allergies Active Allergy Reactions Criticality Noted Date Comments Amoxicillin-Pot Clavulanate Rash Low 04/24/20 21 documented as of this encounter (statuses as of 06/30/2023) Medications Medication Sig Dispensed Refills Start Date End Date Status Levothyroxine Sodium 75 MCG Oral Tablet (Levoxyl)Indications :Acquired hypothyroidism TAKE 1 TABLET BY MOUTH IN THE MORNING ON AN EMPTY STOMACH. 90 Tablet 3 04/21/2023 Active Levothyroxine Sodium 75 MCG Oral Tablet (Levoxyl)Indications :Acquired hypothyroidism TAKE 1 TABLET BY MOUTH IN THE MORNING ON AN EMPTY STOMACH 30 Tablet 0 03/21/2023 04/21/2023 Discontinue d(Refill) documented as of this encounter (statuses as of 06/30/2023) Active Problems Problem Noted Date Diagnosed Date [...] as of this encounter (statuses as of 06/30/2023) Resolved Problems Problem Noted Date Diagnosed Date [...] antepartum 01/07/2011 01/18/2011 Overview: Admitted to [facility] and transferred to [place] at 33 wks, kept there until 35 [...] at 20wk. Delivered at 36wks Per prior [facility] consultation, Cynthia's three (3) prior deliveries noted above do not put her at any significantly increased risk for delivery as they were >36 wks gestation. GBS done 12/15/10 - negative ICD-10 update of inactive term Threatened , antepartum 06/26/2009 02/13/2013 Overview: ED 06/24 [place]. Hcg 64579. Redrawn 06/26 for trending. U/s 06/26 wnl, [...] as of this encounter (statuses as of 06/30/2023) Immunizations Name Administration Dates Next Due COVID-19 [...] encounter Miscellaneous Notes * Telephone Encounter - John Luevano MD - 04/21/2023 12:51 PM ESTSigned Prescriptions: Disp Refills Levothyroxine Sodium 75 MCG Oral Tablet (L*90 Tab*3 Sig: TAKE 1 TABLET BY MOUTH IN THE MORNING ON AN EMPTY STOMACH. Authorizing Provider: JOHN LUEVANO * Telephone Encounter - Noemi Mari, DOROTHY - 04/21/2023 12:39 PM ESTPending Prescriptions: Disp Refills Levothyroxine Sodium 75 MCG Oral Tablet (L*90 Tab*3 Sig: TAKE 1 TABLET BY MOUTH IN THE MORNING ON AN EMPTY STOMACH. * Telephone Encounter - Simran Fierro OSA - 04/21/2023 12:32 PM EST Did you pend patient's preferred pharmacy and medication before forwarding?yes Pharmacy: [id number] 90 day Pending Prescriptions: Disp Refills Levothyroxine Sodium 75 MCG Oral Tablet (*30 Tab*0 Sig: TAKE 1 TABLET BY MOUTH IN THE MORNING ON AN EMPTY STOMACH. Last Visit: 11/06/2022 (in office), Visit date not found (telemedicine) Next Visit: 05/22/2023 If no future appointments scheduled, and last appointment is greater than a year ago, please schedule patient for a follow-up appointment Last date the medication was ordered: 03.21.23 Is this request for a controlled substance?No Urine Drug Screen:No results found for this or any previous visit. Patient Phone Numbers Labs: Lab Results Component Value Date/Time CREAT 0.8 08/20/2022 08:35 AM CREAT 0.5 (L) 06/04/1998 06:30 AM POTASSIUM 4.3 08/20/2022 08:35 AM POTASSIUM 3.5 06/04/1998 06:30 AM TSH 1.04 09/21/2021 10:37 AM TSH 3.54 02/07/2020 03:14 PM ALT 17 07/14/2021 12:31 PM ALT 22 04/25/2010 12:31 PM documented in this encounter Plan of Treatment [...] as of this encounter Visit Diagnoses Diagnosis Acquired hypothyroidism Unspecified hypothyroidism documented in this encounter Additional Health Concerns Infection Onset Date Last Indicated Resolved Time COVID-19 (confirmed) 10/08/2021 10/08/2021 documented as of this encounter Advance Directives Latest Code Status on File Code Status Date Activated Date Inactivated Comments Full Code 12/18/2010 5:48 AM 01/01/2011 10:02 PM This order reflects the patients wishes and were consensually agreed upon. Care Teams Sand Cleaning Machine Operator Relationship Specialty Start Date End Date Petar Riley MD [address] [place] [address] [place] [phone] PCP - General Family Medicine 04/21/23 documented as of this encounter
--- OUTSIDE RECORDS SUMMARY | 2023-10-25 16:02 | External Medical Summary ---
Author Name Unknown Address Unknown Organization K01:[place] [place] [address] [facility] [address] Laboratory Report Ordering Provider Test Date Status OMID GALVEZ 10/20/2023 10:59:50 Final Observation Date Value Abnormality Reference (Units ) Status MYCODE SPECIMEN-SST 10/20/2023 10:59:50 Freezing of extracted DNA, whole blood and/or serum. Final Performing Location [facility] [place] [address] [facility] [address]
--- OUTSIDE RECORDS SUMMARY | 2023-10-25 16:02 | External Medical Summary ---
Author Name Unknown Address Unknown Organization K01:LABORATORY [facility] - [address] [facility] [address] Laboratory Report Ordering Provider Test Date Status ERICA WILLIAMSON 10/22/2023 06:20:00 Final Observation Date Value Abnormality Reference (Units ) Status Triglyceride 10/22/2023 06:20:00 156 <=174 ( mg/dL) Final Triglyceride Reference Range s (mg/dL):
<150 Acceptable
150-174 Borderline high
175-499 High
>=500 Very high Cholesterol 10/22/2023 06:20:00 204 Above high normal <200 (mg/dL) Final Total Cholesterol Reference Ranges (mg/dL):
<200 Desirable
200-239 Borderline high
>=240 High HDL 10/22/2023 06:20:00 35 Below low normal >49 (mg/dL) Final HDL Cholesterol Reference Ra nges (mg/dL):
>=60 High (Desirable)
<50 Low (Undesirable) For Females
<40 Low (Undesirable) For Males NON-HDL CHOLESTEROL 10/22/2023 06:20:00 169 Above high normal <=159 (mg/dL) Final Non-HDL Cholesterol Referenc e Range (mg/dL):
<100 Target level for high risk ASCVD patient
<130 Optimal for general population
130-159 Near optimal for general population
160-189 Borderline High
190-219 High
>=220 Very High LDL, (calculated) 10/22/2023 06:20:00 138 Above high n ormal <=129 (mg/dL) Final LDL Cholesterol Reference Ra nges (mg/dL):
<70 Target level for high risk ASCVD patient
<100 Optimal for general population
100-129 Near optimal for general population
130-159 Borderline high
160-189 High
>=190 Very high Performing Location [facility] [place] [address] [facility] [address]
--- OUTSIDE RECORDS SUMMARY | 2023-10-25 16:02 | External Medical Summary | Summary of Care ---
Author Name Unknown Organization [facility] Address [address] [place] [address] Phone [phone] Care Team Providers Care Night Nurse Name Role Phone Petar Riley MD Primary Care Provide r Encounter Details Date Type Department Care Team (Late st Contact Info) Description 10/20/2023 Orders Only PATIENT PORTAL DO NOT DELETE THIS DEPT USED BY [facility]OLPH [place] [id number] Allergies Active Allergy Reactions Criticality Noted Date [...] 09/29/2023 Active Norethindrone Acetate 5 MG Oral TabletIndications:Abnor mal uterine bleeding Take 1 Tablet by mouth in the morning. 30 Tablet 0 10/16/2023 Active documented as of this encounter (statuses [...] 10/29/13: Recommend weekly IM 17-alpha hydroxyprogesterone 250mg ([place]) administration initiated between 16-24 weeks gestation and continued until 36 weeks gestation for prevention of labor and delivery. -pt declines due to cost Pt interested in PP tubal ligation Flu vaccine administered 04/18/2014 Renetta Ferrara, RN Tdap vaccine administered 04/18/2014 Renetta Ferrara, RN ICD-10 update of inactive term Threatened premature labor, antepartum 01/07/2011 01/18/2011 Overview: Admitted to [facility] and transferred to [place] at 33 wks, kept there until 35 [...] Delivered at 36wks Per prior MFM consultation, Cynthia's three (3) prior deliveries noted above do not put her at any significantly increased risk for delivery as they were >36 wks gestation. GBS done 12/15/10 - negative ICD-10 update of inactive term Threatened , antepartum 06/26/2009 02/13/2013 Overview: ED 06/24 [place]. [place] 59770. Redrawn 06/26 for trending. U/s 06/26 wnl, [...] Team (Late st Contact Info) Description 10/20/2023 10:30 AM EDT Imaging Radiology [address] [place] [phone] 10/20/2023 11:20 AM EDT Laboratory Laboratory [address] [place] [phone] [facility] [address] [place] [address] Health Maintenance Due Date Last Done Comments [...] and were consensually agreed upon. Care Teams Night Nurse Relationship Specialty Start Date End Date Petar Riley MD [address] [place] [address] [place] [phone] PCP - General Family Medicine 04/21/23 documented as of this encounter
--- OUTSIDE RECORDS SUMMARY | 2023-10-25 16:02 | External Medical Summary ---
Author Name Unknown Address Unknown Organization [id number]:[facility] [place] [address] [place] [address] Laboratory Report Ordering Provider Test Date Status SHLOMO VALE 10/20/2023 10:59:50 Final Observation Date Value Abnormality Reference (Units ) Status Vitamin B12 10/20/2023 10:59:50 [phone] (pg/mL) Final Performing Location [facility] [place] [address] [place] [address]
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
--- OUTSIDE RECORDS SUMMARY | 2023-10-25 16:02 | External Medical Summary | Summary of Care ---
Author Name Unknown Organization [facility] Address [address] [place] [address] Phone [phone] Care Team Providers Care Print Production Coordinator Name Role Phone Petar Riley MD Primary Care Provide r Reason for Visit * Reason Comments Outpatient Testing Encounter Details Date Type Department Care Team (Late st Contact Info) Description 06/30/2023 9:00 AM EST Laboratory Laboratory [address] [place] [phone] [address] [place] [address] Suspected UTI Allergies Active Allergy Reactions Criticality Noted Date Comments Amoxicillin-Pot Clavulanate Rash Low 04/24/20 21 documented as of this encounter (statuses as of 06/30/2023) Medications Medication Sig Dispensed Refills Start Date End Date Status Levothyroxine Sodium 75 MCG Oral Tablet (Levoxyl)Indications:Ac quired hypothyroidism TAKE 1 TABLET BY MOUTH IN THE MORNING ON AN EMPTY STOMACH. 90 Tablet 3 04/21/2023 Active documented as of this encounter (statuses [...] x 3, no PTD; all deliveries >36wks [facility] 10/29/13: Recommend weekly IM 17-alpha hydroxyprogesterone 250mg ([place]) administration initiated between 16-24 weeks gestation and continued until 36 weeks gestation for prevention of labor and delivery. -pt declines due to cost Pt interested in PP tubal ligation Flu vaccine administered 04/18/2014 Renetta Ferrara RN Tdap vaccine administered 04/18/2014 Renetta Ferrara RN ICD-10 update of inactive term Threatened premature labor, antepartum 01/07/2011 01/18/2011 Overview: Admitted to [facility] and transferred to [place] at 33 wks, kept there until 35 [...] at 20wk. Delivered at 36wks Per prior [facility] consultation, Cynthia's three (3) prior deliveries noted above do not put her at any significantly increased risk for delivery as they were >36 wks gestation. GBS done 12/15/10 - negative ICD-10 update of inactive term Threatened , antepartum 06/26/2009 02/13/2013 Overview: ED 06/24 [place]. [place] [address]. Redrawn 06/26 for trending. U/s 06/26 wnl, cx closed. Bld type O+. Encounter for supervision of other normal 05/26/2009 09/05/2010 ACUTE CYSTITIS 03/06/2005 08/11/2008 Overview: Resolved per Benign Acute Dxs Protocol #3 Urinary frequency 03/06/2005 09/04/2010 Dysuria 03/06/2005 09/04/2010 Abdominal pain, epigastric 03/06/2005 0 09/04/2010 SLOW TRANSIT CONSTIPATION/OBSTIPATION 03/06/2005 09/04/2010 Allergic rhinitis 03/06/2005 09/04/2010 Normal , first 08/15/20000 12/2000 documented as of this encounter (statuses as [...] Name Type Priority Associated Diagnoses Date /Time CULTURE, URINE, QUANTITATIVE Lab Routine Suspected UTI 06/30/2023 8:58 AM EST URINALYSIS WITH MICROSCOPIC EXAM Lab Routine Suspected UTI 06/30/2023 8:58 AM EST HCG QUALITATIVE, URINE Lab Routine Suspected UTI 06/30/2023 8:58 AM EST Health Maintenance Due Date Last Done Comments Hepatitis B (1 of 3 - 3-dose series) 1979 Lipid Panel 1979 HPV/Co-Test 08/27/2009 Mammogram 2019 Depression Screening 04/15/2020 04/15/2019 TSH 09/21/2022 09/21/2021, 06/17, 02/07/2020, Additional history exists COVID-19 Vaccine (3 - season) 2023 11/22/2020, 10/25/2020 Influenza Vaccine (FLU [...] as of this encounter Visit Diagnoses Diagnosis Suspected UTI documented in this encounter Additional Health Concerns Infection Onset Date Last Indicated Resolved Time COVID-19 (confirmed) 10/08/2021 10/08/2021 documented as of this encounter Advance Directives Latest Code Status on File Code Status Date Activated Date Inactivated Comments Full Code 12/18/2010 5:48 AM 01/01/2011 10:02 PM This order reflects the patients wishes and were consensually agreed upon. Care Teams Print Production Coordinator Relationship Specialty Start Date End Date Petar Riley MD [address] [place] [address] [place] [id number] PCP - General Family Medicine 04/21/23 documented as of this encounter
--- OUTSIDE RECORDS SUMMARY | 2023-10-25 16:02 | External Medical Summary | Summary of Care ---
Author Name Unknown Organization [facility] Address [address] [place] [address] Phone [phone] Care Team Providers Care Tow Operator Name Role Phone Petar Riley MD Primary Care Provide r Reason for Visit * Reason Onset Date Comments FYI 10/21/2023 Encounter Details Date Type Department Care Team (Late st Contact Info) Description 10/21/2023 Telephone Family Medicine [address] [phone] Petar Riley MD [address] [place], [place] [address] [phone] FYI Allergies Active Allergy Reactions Criticality Noted Date [...] 10/29/13: Recommend weekly IM 17-alpha hydroxyprogesterone 250mg ([place]) administration initiated between 16-24 weeks gestation and continued until 36 weeks gestation for prevention of labor and delivery. -pt declines due to cost Pt interested in PP tubal ligation Flu vaccine administered 04/18/2014 Renetta Ferrara, RN Tdap vaccine administered 04/18/2014 Renetta Ferrara, RN ICD-10 update of inactive term Threatened premature labor, antepartum 01/07/2011 01/18/2011 Overview: Admitted to [facility] and transferred to [place] at 33 wks, kept there until 35 [...] at 20wk. Delivered at 36wks Per prior [facility] consultation, Cynthia's three (3) prior deliveries noted above do not put her at any significantly increased risk for delivery as they were >36 wks gestation. GBS done 12/15/10 - negative ICD-10 update of inactive term Threatened , antepartum 06/26/2009 02/13/2013 Overview: ED 06/24 [place]. [place] [address]. Redrawn 06/26 for trending. U/s 06/26 wnl, [...] encounter Miscellaneous Notes * Telephone Encounter - Dawson Loya, MYRNA - 10/21/2023 7:51 AM EDT Chart reviewed to see if test result imaging and labs were completed. [facility] documented in this encounter Plan of Treatment Upcoming Encounters Date Type Department Care Team (Late st Contact Info) Description 10/21/2023 9:40 AM EDT Office Visit Family [address] [place] [phone] Flory Hoffman PA-C [address] [place] [address] [place] [phone] Health Maintenance Due Date Last Done Comments [...] and were consensually agreed upon. Care Teams Tow Operator Relationship Specialty Start Date End Date Petar Riley MD [address] [place] [address] [place] [id number] PCP - General Family Medicine 04/21/23 documented as of this encounter
--- OUTSIDE RECORDS SUMMARY | 2023-10-25 16:02 | External Medical Summary | Summary of Care ---
Author Name Unknown Organization [facility] Address [address] [place] [address] Phone [phone] Care Team Providers Care Vegetable Farming Supervisor Name Role Phone Petar Riley MD Primary Care Provide r Reason for Visit * Reason Onset Date Comments Medication Refill 09/29/2023 Encounter Details Date Type Department Care Team (Late st Contact Info) Description 09/29/2023 Refill Family Medicine [address] [phone] Petar Riley MD [address] [place] [address] [place] [phone] Acquired hypothyroidism Allergies Active Allergy Reactions Criticality Noted Date Comments Amoxicillin-Pot Clavulanate Rash Low 04/24/20 21 documented as of this encounter (statuses as of 09/29/2023) Medications Medication Sig Dispensed Refills Start Date End Date Status Levothyroxine Sodium 75 MCG Oral Tablet (Levoxyl)Indications :Acquired hypothyroidism TAKE 1 TABLET BY MOUTH IN THE MORNING ON AN EMPTY STOMACH. 90 Tablet 3 09/29/2023 Active Levothyroxine Sodium 75 MCG Oral Tablet (Levoxyl)Indications :Acquired hypothyroidism TAKE 1 TABLET BY MOUTH IN THE MORNING ON AN EMPTY STOMACH. 90 Tablet 3 04/21/2023 09/29/2023 Discontinue d(Refill) documented as of this encounter (statuses as of 09/29/2023) Active Problems Problem Noted Date Diagnosed Date [...] as of this encounter (statuses as of 09/29/2023) Resolved Problems Problem Noted Date Diagnosed Date [...] 10/29/13: Recommend weekly IM 17-alpha hydroxyprogesterone 250mg ([place]) administration initiated between 16-24 weeks gestation and continued until 36 weeks gestation for prevention of labor and delivery. -pt declines due to cost Pt interested in PP tubal ligation Flu vaccine administered 04/18/2014 Renetta Ferrara, RN Tdap vaccine administered 04/18/2014 Tatum Josias, RN ICD-10 update of inactive term Threatened premature labor, antepartum 01/07/2011 01/18/2011 Overview: Admitted to [facility] and transferred to [place] at 33 wks, kept there until 35 [...] at 20wk. Delivered at 36wks Per prior [facility] consultation, Cynthia's three (3) prior deliveries noted above do not put her at any significantly increased risk for delivery as they were >36 wks gestation. GBS done 12/15/10 - negative ICD-10 update of inactive term Threatened , antepartum 06/26/2009 02/13/2013 Overview: ED 06/24 [place]. [place] [address]. Redrawn 06/26 for trending. U/s 06/26 wnl, [...] as of this encounter (statuses as of 09/29/2023) Immunizations Name Administration Dates Next Due COVID-19 [...] encounter Miscellaneous Notes * Telephone Encounter - Petar Riley MD - 09/29/2023 10:20 AM EDT Signed Prescriptions: Disp Refills Levothyroxine Sodium 75 MCG Oral Tablet (L*90 Tab*3 Sig: TAKE 1 TABLET BY MOUTH IN THE MORNING ON AN EMPTY STOMACH. Authorizing Provider: PETAR RILEY * Telephone Encounter - Noemi Mari RN - 09/29/2023 10:11 AM EDTPending Prescriptions: Disp Refills Levothyroxine Sodium 75 MCG Oral Tablet (L*90 Tab*3 Sig: TAKE 1 TABLET BY MOUTH IN THE MORNING ON AN EMPTY STOMACH. * Telephone Encounter - Ginna Fleming OSA - 09/29/2023 9:55 AM EDT 90 day supply * Telephone Encounter - Ginna Fleming OSA - 09/29/2023 9:46 AM EDT Did you pend patient's preferred pharmacy and medication before forwarding?yes Pharmacy: [id number] Pending Prescriptions: Disp Refills Levothyroxine Sodium 75 MCG Oral Tablet (*90 Tab*3 Sig: TAKE 1 TABLET BY MOUTH IN THE MORNING ON AN EMPTY STOMACH. Last Visit: 11/06/2022 (in office), Visit date not found (telemedicine) Next Visit: Visit date not found If no future appointments scheduled, and last appointment is greater than a year ago, please schedule patient for a follow-up appointment Last date the medication was ordered: 04/21/23 Is this request for a controlled substance?No [...] 10/16/2023 1:45 PM EDT [facility] [address] [place] [phone] Beatrice Ornelas CRNP [address] [place] [address] Health Maintenance Due Date Last Done Comments [...] and were consensually agreed upon. Care Teams Vegetable Farming Supervisor Relationship Specialty Start Date End Date Petar Riley MD [address] [place] [address] [place] [id number] PCP - General Family Medicine 04/21/23 documented as of this encounter
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
--- OUTSIDE RECORDS SUMMARY | 2023-10-25 16:02 | External Medical Summary ---
Author Name Unknown Address Unknown Organization [id number][place] [place] [address] [facility] [address] Laboratory Report Ordering Provider Test Date Status PRADEEP VALEClarice 10/20/2023 10:59:50 Final Observation Date Value Abnormality Reference (Units ) Status BUN 10/20/2023 10:59:50 12 6-20 (mg/dL) Final Creatinine 10/20/2023 10:59:50 1.0 0.5-1.0 (mg/dL) Final Glomerular filtration rate/1.73 sq M.predicted [Volume Rate/Area] in Serum, Plasma or Blood by Creatinine-based formula (CKD-EPI) 10/20/2023 10:59:50 76 >=60 (mL/min) Final eGFR is calculated based on the CKD-EPI 2020 equation Sodium 10/20/2023 10:59:50 142 135-146 (m mol/L) Final Potassium 10/20/2023 10:59:50 4.0 3.5-5.1 (m mol/L) Final Cl 10/20/2023 10:59:50 105 98-107 (mm ol/L) Final CO2 10/20/2023 10:59:50 19 Below low normal 22- 32 (mmol/L) Final Anion gap 10/20/2023 10:59:50 18 Above high normal 7- 15 (mmol/L) Final Glucose 10/20/2023 10:59:50 122 Above high normal 70 -120 (mg/dL) Final Albumin 10/20/2023 10:59:50 4.6 3.8-5.0 (g /dL) Final AST (Aspartate aminotransferase) 10/20/2023 10:59:50 14 10-35 (U/L) Fin al Alk Phos 10/20/2023 10:59:50 84 35-130 (U/ L) Final Bilirubin, Total 10/20/2023 10:59:50 0.4 <=1 .2 (mg/dL) Final Calcium 10/20/2023 10:59:50 10.8 Above high normal 8. 4-10.2 (mg/dL) Final Protein 10/20/2023 10:59:50 7.2 6.0-8.3 (g /dL) Final ALT (Alanine aminotransferase) 10/20/2023 10:59:50 15 10-35 (U/L) Carlo vela Performing Location [facility] [place] [facility] [address] [facility] [address]
--- OUTSIDE RECORDS SUMMARY | 2023-10-25 16:02 | External Medical Summary ---
Author Name Unknown Address Unknown Organization [id number]:[facility] [place] - [address] [facility] [address] Laboratory Report Ordering Provider Test Date Status OMID GALVEZ 10/20/2023 10:59:50 Final Observation Date Value Abnormality Reference (Units ) Status MYCODE SPECIMEN-SST 10/20/2023 10:59:50 Freezing of extracted DNA, whole blood and/or serum. Final Performing Location [facility] [place] - [address] [facility] [address]
--- OUTSIDE RECORDS SUMMARY | 2023-10-25 16:03 | External Medical Summary ---
Author Name Unknown Address Unknown Organization [id number]:[facility]ORY [facility] [place] - [address] [facility] [address] Laboratory Report Ordering Provider Test Date Status OUMOU RIDDLE 06/30/2023 08:58:13 Final Observation Date Value Abnormality Reference (Units ) Status Screen, Urine 06/30/2023 08:58:13 Negative Negative Final Performing Location LAB[facility]ATORY [facility] [place] - [address] [facility] [address]
--- OUTSIDE RECORDS SUMMARY | 2023-10-25 16:03 | External Medical Summary ---
Author Name Unknown Address Unknown Organization K01:LABORATORY [facility] - [address] [facility] [address] Laboratory Report Ordering Provider Test Date Status OUMOU RIDDLE 06/30/2023 08:58:13 Final Observation Date Value Abnormality Reference (Units ) Status Color of Urine by Auto 06/30/2023 08:58:13 Light Yellow Colorless, Light Yellow, Yellow, Dark Yellow Final Clarity, Urine 06/30/2023 08:58:13 Slightly Cloudy Abnormal Clear Final Glucose [Mass/volume] in Urine by Automated test strip 06/30/2023 08:58:13 Negative Negative (mg/dL) Final Bilirubin.total [Presence] in Urine by Automated test strip 06/30/2023 08:58:13 Negative Negative Final Ketones [Mass/volume] in Urine by Automated test strip 06/30/2023 08:58:13 Negative Negative (mg/dL) Final Specific gravity, Urine 06/30/2023 08:58:13 1.028 1.003-1.030 Final Hemoglobin [Presence] in Urine by Automated test strip 06/30/2023 08:58:13 Negative Negative Final pH, Urine 06/30/2023 08:58:13 5.5 5.0-7.5 (Units) Final Protein [Mass/volume] in Urine by Automated test strip 06/30/2023 08:58:13 Negative Negative (mg/dL) Final Urobilinogen [Mass/volume] in Urine by Automated test strip 06/30/2023 08:58:13 Normal Normal (mg/dL) Final Nitrite [Presence] in Urine by Automated test strip 06/30/2023 08:58:13 Negative Negative Final Leukocyte esterase [Presence] in Urine by Automated test strip 06/30/2023 08:58:13 Moderate Abnormal Negative Final RBC, Urine 06/30/2023 08:58:13 0-2 0-2 (/HPF) Final WBC, Urine 06/30/2023 08:58:13 10-19 Abnormal 0-2 (/HPF) Final Bacteria [#/area] in Urine sediment by Microscopy high power field 06/30/2023 08:58:13 51-100 Abnormal 0-25 (/HPF) Final Calcium oxalate crystals [#/area] in Urine sediment by Microscopy high power field 06/30/2023 08:58:13 50+ Abnormal None (/HPF) Final Epithelial cells.renal [#/area] in Urine sediment by Microscopy high power field 06/30/2023 08:58:13 1-4 Abnormal None (/HPF) Final Transitional cells [#/area] in Urine sediment by Microscopy high power field 06/30/2023 08:58:13 1-4 Abnormal None (/HPF) Final Performing Location [facility] [place] - [address] [facility] [address]
--- NOTE | 2023-10-25 16:17 | Emergency Department Note ---
Impression & Plan Weakness, Stroke-like symptoms, Speech abnormality ED Provider Note NAME: JENNY MICHAEL AGE: 43 SEX: F : 1980 ARRIVES VIA: Walk-In INFORMANT: [Patient][] ED PROVIDER(S): [Macario Wright MD] Patient first seen by me at around 1610 CHIEF COMPLAINT: Neuro symptoms. HISTORY OF PRESENT ILLNESS: The patient is a 43-year-old female who presents to the ED with symptoms that began at around 1230, 3 hours and 40 minutes ago. The patient apparently began feeling weak and then began having difficulty finding her words and speaking. This is the same type of presentation that occurred on the seventh of this month, 4 days ago. The patient was discharged from [facility] 2 days ago--she had been transferred from our hospital to [facility] for her presentation 4 days ago. According to the , she had an angiogram performed and there was no intervention performed. When she left, they placed her on baby aspirin, they were not convinced that she had a stroke but could not explain things otherwise. The patient was okay yesterday although she was not quite herself in that her strength really has never returned since discharge from the hospital. At around 1230 today, she became much more weak. The weakness was diffuse. The patient at 1 point refused to stand. She began having a harder time finding her words. The family decided to present back to the hospital for reevaluation. PMHx/PSHx/Social Hx: See Below PHYSICAL EXAM: GENERAL: Patient is in no acute distress. HEENT: No acute trauma, normocephalic atraumatic, mucous membranes moist, no nasal congestion. Pupils equal and reactive to light. NECK: No stridor, no adenopathy, no meningismus, trachea is midline. LUNGS: Clear to auscultation bilaterally, no wheeze, no rhonchi, breath sounds equal. HEART: Without murmurs gallops or rubs, regular rate and rhythm. ABDOMEN: Soft, nontender, no peritonitis. EXTREMITIES: No cyanosis, full range of motion of all the joints without pain or difficulty. NEUROLOGIC: Awake and alert. No facial droop, no extremity drift or cerebellar dysfunction. The patient does seem to have a hard time finding her words and is slow to respond to questioning. She seems to show stuttering at times. SKIN: No jaundice, no diaphoresis. DIFFERENTIAL DIAGNOSIS: Stroke, TIA, electrolyte imbalance, anemia, among others. EMERGENCY DEPARTMENT PROCEDURES: MEDICAL DECISION MAKING: There is no leukocytosis or concerning anemia. There is a normal platelet count. No coagulopathy. No renal failure or significant electrolyte abnormality. No concerning liver enzyme elevation. ECG showed a normal sinus rhythm, no ischemia or dysrhythmia. Cardiac enzyme testing x 1 was not consistent with acute cardiac injury. Urinalysis did not show infection. Urine tox was negative. Alcohol level was undetectable. Brain CT showed no acute bleed or mass effect. CT angio of the head and neck showed no stenosis or clot. On exam, the patient seemed to have some stuttering of her speech and some difficulty finding her words. No focal extremity deficits. A stroke alert was called given the presentation. The patient was seen by the stroke neurologist. TNK was not recommended as the patient's presentation was not truly consistent with CVA. Additionally, the patient's complaints today had started over 3 hours ago. The patient had a recent workup for stroke with the same findings and the workup was negative. MRI of the brain was reportedly normal. I did speak with the patient and her . I did speak with case management--for now, hospitalization, observation is warranted. At this point, the true cause for her presentation is unclear. Stress and anxiety may be contributing to her complaints. The on-call hospitalist was consulted. Prior/Outside records/notes reviewed: ED visit note from 10/21/2023 discussing her presentation and transferred to [facility]. ECG per my interpretation: Indication was possible stroke. ECG showed a normal sinus rhythm with a rate of 67. There was potential old septal infarct and some baseline artifact. There is no acute ST ovation, no PVCs. The QTc was 397. Continuous Cardiac Monitoring per my interpretation: An order was placed for continuous cardiac monitoring. The monitor shows a rate of 65 with normal sinus rhythm. Imaging/x-ray results per my interpretation: Chronic Medical/Social conditions affecting care: Care/Management discussed with: [facility] stroke neurology--Dr. Morelos. Case management, the on-call hospitalist. Level of care consideration(s): After review of the information above and other included data: --I believe the patient requires escalation of care to admission Critical Care Note: I have personally spent 49 minutes of critical care time in the direct management of this patient. This includes bedside care, interpretation of diagnostic studies, and testing, discussion with consultants, patient, and family members, and other required patient management activities. This 49 minutes is in excess of all separately billable procedures. DISPOSITION: Admission Past Med/Surg History Medical History Hypothyroidism Depression Anxiety Surgical History History of dental surgery Family History Other Alzheimer disease Cancer Hypertension Social History Smoking Status: Never smoker Hx Alcohol Use: No Hx Substance Use: No Preferred Language: Montenegrin Beliefs That Will Affect Care: Judaism marital status: Feels Safe at Home: Yes Allergies Allergies Allergy/AdvReac Type Severity Reaction Status Date / Time No Known Allergies Allergy Verified 10/25/23 17:08 Home Meds Home Medications Medication Instructions Recorded Confirmed levothyroxine 75 mcg tablet 75 mcg PO QAM 10/21/23 10/25/23 ondansetron 4 mg disintegrating 4 mg translingual Q8H PRN n/v 10/21/23 10/25/23 tablet aspirin 81 mg chewable tablet 81 mg PO DAILY 10/25/23 10/25/23 ibuprofen 200 mg tablet 400 - 800 mg PO BID PRN Pain 10/25/23 10/25/23 Results & Data (ED) Vital Signs Vital Signs - 24 hr 10/25/23 15:54 10/25/23 16:13 10/25/23 16:31 Temperature 36.6 C Temperature Source Oral Pulse Rate 80 65 Pulse Rate [Left] Pulse Rate from SpO2 Sensor 67 Pulse Rhythm [Left] Pulse Strength [Left] Respiratory Rate 18 25 H Respiratory Effort / Characteristics Respiratory Depth Blood Pressure 147/88 H 126/83 Blood Pressure [Left Arm] Blood Pressure Mean 107 97 Blood Pressure Mean [Left Arm] Pulse Oximetry 96 96 95 Oxygen Delivery Method Room Air Oxygen Flow Rate 0 Sepsis Recent Fever Within 48 Hours No Sepsis New/Unexplained Change in Mental Status N/A Sepsis Action Taken by Nursing No Action Required 10/25/23 16:33 10/25/23 16:53 Temperature Temperature Source Pulse Rate 65 Pulse Rate [Left] 76 Pulse Rate from SpO2 Sensor Pulse Rhythm [Left] Regular Pulse Strength [Left] Normal Respiratory Rate 17 Respiratory Effort / Characteristics Non-Labored Respiratory Depth Normal Blood Pressure Blood Pressure [Left Arm] 126/83 Blood Pressure Mean Blood Pressure Mean [Left Arm] 97 Pulse Oximetry 98 Oxygen Delivery Method Room Air Oxygen Flow Rate 0 Sepsis Recent Fever Within 48 Hours Sepsis New/Unexplained Change in Mental Status Sepsis Action Taken by Residential Medications Current Medication List: was personally reviewed by me Laboratory Data Attestation: I reviewed the patient's lab results. 10/25/23 16:09 10/25/23 16:09 Lab Results 10/25/23 10/25/23 10/25/23 Range/Units 16:08 16:09 16:14 WBC 7.28 (4.8-10.8) K/ul RBC 4.76 (4.20-5.40) M/uL Hgb 14.6 (12.0-16.0) g/dl POC Hgb 14.3 (12.0-16.0) g/dl Hct 41.8 (37.0-47.0) % POC Hct 42 (37-47) % MCV 87.8 (80.0-100.0) fL MCH 30.7 (25.0-34.0) pg MCHC 34.9 (32.0-36.0) g/dL RDW Std Deviation 41.1 (36.4-46.3) fL RDW Coeff of Ajit 12.8 (11.5-14.5) % Plt Count 277 (130-400) K/uL MPV 9.6 (9.4-12.4) fL Immature Gran % (Auto) 0.3 % Neut % (Auto) 54.8 % Lymph % (Auto) 34.9 % Person % (Auto) 8.1 % Eos % (Auto) 1.8 % Baso % (Auto) 0.1 % Neut # (Auto) 3.99 (1.40-6.50) K/uL Lymph # (Auto) 2.54 (1.20-3.40) K/uL Person # (Auto) 0.59 (0.11-0.59) K/uL Eos # (Auto) 0.13 (0.00-0.50) K/uL Baso # (Auto) 0.01 (0.00-0.20) K/uL Immature Gran # (Auto) 0.02 (0.01-0.20) K/uL PT 10.7 (9.0-12.0) Seconds INR 1.0 (0.9-1.1) APTT 30 (21-31) Seconds PTT Ratio 1.1 POC Sodium 141 (135-144) mmol/L Sodium 139 (136-145) mmol/L POC Potassium 3.7 (3.3-5.0) mmol/L Potassium 3.7 (3.5-5.1) mmol/L POC Chloride 104 (101-112) mmol/L Chloride 105 (98-107) mmol/L Carbon Dioxide 26 (21-32) mmol/L POC Total CO2 24 (24-31) mmol/L Anion Gap 8 (3-11) POC Anion Gap 17.0 (16-25) mmol/L POC BUN 10 (7-18) mg/dl BUN 12 (6-23) mg/dl Creatinine 0.90 (0.6-1.2) mg/dl POC Creatinine 0.9 (0.6-1.3) mg/dl Est Cr Clr Drug Dosing 86.2 ml/min Est GFR ( Amer) 90.1 ml/min Est GFR (Non-Af Amer) 77.8 ml/min BUN/Creatinine Ratio 13.3 (10-20) Glucose 91 (70-99(Fasting)) mg/dl POC Glucose 91 (70-99) mg/dl POC Glucose (other) 93 (70-99) mg/dl Calcium 10.0 (8.6-10.3) mg/dl POC Ioniz Calcium Melissa 1.28 (1.12-1.32) mmol/l Magnesium 1.9 (1.7-2.4) mg/dl Total Bilirubin 0.5 (0.2-1.0) mg/dl AST 19 (13-39) U/L ALT 17 (7-52) U/L Alkaline Phosphatase 79 (34-104) U/L Troponin I High Sens < 2.3 (0-14) pg/ml Total Protein 8.3 (6.0-8.3) gm/dl Albumin 4.8 (3.4-5.0) gm/dl Globulin 3.5 (2.5-4.0) gm/dl Albumin/Globulin Ratio 1.4 (0.9-2) Urine Color Urine Appearance (Clear) Urine pH (4.5-7.5) Ur Specific [place] (1.000-1.030) Urine Protein (Negative) Urine Glucose (UA) (Negative) Urine Ketones (Negative) Urine Blood (Negative) Urine Nitrite (Negative) Urine Bilirubin (Negative) Urine Urobilinogen (Negative) Ur Leukocyte Esterase (Negative) Urine WBC (Auto) (0-5) /hpf Urine RBC (Auto) (0-2) /hpf U Hyaline Cast (Auto) (0-2) /lpf U Epithel Cells (Auto) (0-2) /hpf Urine Bacteria (Auto) (None Seen) Urine Opiates Screen (Neg) Ur Methadone, Qual (Neg) Urine Barbiturates (Neg) Ur Phencyclidine (PCP) (Neg) U Amphetamin/Meth Scrn (Neg) MDMA (Ecstasy) Screen (Neg) U Benzodiazepines Scrn (Neg) Ur Cocaine Metabolite (Neg) U Marijuana (THC) Screen (Neg) Ethyl Alcohol mg/dL (<10.0) mg/dl 10/25/23 10/25/23 Range/Units 16:35 17:38 WBC (4.8-10.8) K/ul RBC (4.20-5.40) M/uL Hgb (12.0-16.0) g/dl POC Hgb (12.0-16.0) g/dl Hct (37.0-47.0) % POC Hct (37-47) % MCV (80.0-100.0) fL MCH (25.0-34.0) pg MCHC (32.0-36.0) g/dL RDW Std Deviation (36.4-46.3) fL RDW Coeff of Ajit (11.5-14.5) % Plt Count (130-400) K/uL MPV (9.4-12.4) fL Immature Gran % (Auto) % Neut % (Auto) % Lymph % (Auto) % Person % (Auto) % Eos % (Auto) % Baso % (Auto) % Neut # (Auto) (1.40-6.50) K/uL Lymph # (Auto) (1.20-3.40) K/uL Person # (Auto) (0.11-0.59) K/uL Eos # (Auto) (0.00-0.50) K/uL Baso # (Auto) (0.00-0.20) K/uL Immature Gran # (Auto) (0.01-0.20) K/uL PT (9.0-12.0) Seconds INR (0.9-1.1) APTT (21-31) Seconds PTT Ratio POC Sodium (135-144) mmol/L Sodium (136-145) mmol/L POC Potassium (3.3-5.0) mmol/L Potassium (3.5-5.1) mmol/L POC Chloride (101-112) mmol/L Chloride (98-107) mmol/L Carbon Dioxide (21-32) mmol/L POC Total CO2 (24-31) mmol/L Anion Gap (3-11) POC Anion Gap (16-25) mmol/L POC BUN (7-18) mg/dl BUN (6-23) mg/dl Creatinine (0.6-1.2) mg/dl POC Creatinine (0.6-1.3) mg/dl Est Cr Clr Drug Dosing ml/min Est GFR ( Amer) ml/min Est GFR (Non-Af Amer) ml/min BUN/Creatinine Ratio (10-20) Glucose (70-99(Fasting)) mg/dl POC Glucose (70-99) mg/dl POC Glucose (other) (70-99) mg/dl Calcium (8.6-10.3) mg/dl POC Ioniz Calcium Melissa (1.12-1.32) mmol/l Magnesium (1.7-2.4) mg/dl Total Bilirubin (0.2-1.0) mg/dl AST (13-39) U/L ALT (7-52) U/L Alkaline Phosphatase (34-104) U/L Troponin I High Sens (0-14) pg/ml Total Protein (6.0-8.3) gm/dl Albumin (3.4-5.0) gm/dl Globulin (2.5-4.0) gm/dl Albumin/Globulin Ratio (0.9-2) Urine Color Yellow Urine Appearance Clear (Clear) Urine pH 8.0 H (4.5-7.5) Ur Specific [place] 1.015 (1.000-1.030) Urine Protein Negative (Negative) Urine Glucose (UA) Negative (Negative) Urine Ketones Negative (Negative) Urine Blood Negative (Negative) Urine Nitrite Negative (Negative) Urine Bilirubin Negative (Negative) Urine Urobilinogen Negative (Negative) Ur Leukocyte Esterase Trace H (Negative) Urine WBC (Auto) 0-5 (0-5) /hpf Urine RBC (Auto) 0-2 (0-2) /hpf U Hyaline Cast (Auto) 0-2 (0-2) /lpf U Epithel Cells (Auto) 3-5 H (0-2) /hpf Urine Bacteria (Auto) None Seen (None Seen) Urine Opiates Screen Neg (Neg) Ur Methadone, Qual Neg (Neg) Urine Barbiturates Neg (Neg) Ur Phencyclidine (PCP) Neg (Neg) U Amphetamin/Meth Scrn Neg (Neg) MDMA (Ecstasy) Screen Neg (Neg) U Benzodiazepines Scrn Neg (Neg) Ur Cocaine Metabolite Neg (Neg) U Marijuana (THC) Screen Neg (Neg) Ethyl Alcohol mg/dL < 10.0 (<10.0) mg/dl Administered Medications Discontinued Medications Sodium Chloride (Nss) 500 mls @ 999 mls/hr IV .Q31M ONE Stop: 10/25/23 16:44 Last Admin: 10/25/23 16:51 Dose: 999 mls/hr Documented By: AM Ioversol (Optiray 320 125ml) 119 ml IV ONCE ONE Stop: 10/25/23 16:23 Last Admin: 10/25/23 16:22 Dose: 119 ml Documented By: EUNICE Imaging Data Radiologist's Impression: Head CT 10/25/23 16:14 CT head/brain wo con CLINICAL HISTORY: neuro deficit, acute stroke suspected Technique: Contiguous axial CT images of the head were acquired from the base of the skull to the vertex without intravenous contrast administration. Images were viewed in brain, subdural and bone windows. Automated dose lowering techniques and/or adjustment according to patient size were utilized for this exam. Comparison: None available at the time of this dictation. Findings: The ventricles, basal cisterns, and cerebral sulci are normal. There is no acute intracranial hemorrhage or evidence of acute territorial infarction. Neither mass effect, shift of the midline structures, nor abnormal extra-axial fluid collections are shown. Imaged portions of the paranasal sinuses and mastoid air cells are clear. The orbits appear normal. There are no acute fractures of the calvaria or scalp swelling. Impression: No acute intracranial hemorrhage, no evidence of acute territorial infarction or other acute intracranial disease process. ACT 112: Negative or not required by law. Electronically signed by: Alfonso Cuellar M.D. 10/25/2023 4:50 PM Head CTA 10/25/23 16:14 CT angio neck with con, CT angio head w con CLINICAL HISTORY: neuro deficit, acute stroke suspected TECHNIQUE: CT angiography of the head and neck was performed following intravenous administration of iodinated contrast. Coronal and sagittal MIPS were obtained from the axial data set and were submitted for review. Automated dose lowering techniques and/or adjustment according to patient size were utilized for this examination. All measurements were calculated based on NASCET criteria. CT DOSE: 1350.58 mGy.cm Comparison: None available at the time of this dictation. FINDINGS: Lungs and soft tissues are unremarkable. CTA Neck: A 3 vessel aortic arch is shown. There is no significant atherosclerotic plaque in the aortic arch or the origins of the innominate, left common carotid, and left subclavian arteries. The common carotid, external carotid, cervical segments of the internal carotid arteries, and the cervical segments of the vertebral arteries are patent without hemodynamically significant stenosis. The left vertebral artery is dominant. CTA Head: The anterior and posterior cerebral circulations are patent. No hemodynamically significant stenosis, aneurysm, dissection, or arteriovenous malformation is shown. IMPRESSION: 1. No occlusion, hemodynamically significant stenosis, or dissection in the major cervical arteries. 2. No occlusion, hemodynamically significant stenosis, aneurysm, dissection, or arteriovenous malformation in the major intracranial arteries. Assessment of stenosis of the internal carotid arteries is based on NASCET criteria. ACT 112: Negative or not required by law. Electronically signed by: Alfonso Cuellar M.D. 10/25/2023 4:53 PM Neck CTA 10/25/23 16:14 CT angio neck with con, CT angio head w con CLINICAL HISTORY: neuro deficit, acute stroke suspected TECHNIQUE: CT angiography of the head and neck was performed following intravenous administration of iodinated contrast. Coronal and sagittal MIPS were obtained from the axial data set and were submitted for review. Automated dose lowering techniques and/or adjustment according to patient size were utilized for this examination. All measurements were calculated based on NASCET criteria. CT DOSE: 1350.58 mGy.cm Comparison: None available at the time of this dictation. FINDINGS: Lungs and soft tissues are unremarkable. CTA Neck: A 3 vessel aortic arch is shown. There is no significant atherosclerotic plaque in the aortic arch or the origins of the innominate, left common carotid, and left subclavian arteries. The common carotid, external carotid, cervical segments of the internal carotid arteries, and the cervical segments of the vertebral arteries are patent without hemodynamically significant stenosis. The left vertebral artery is dominant. CTA Head: The anterior and posterior cerebral circulations are patent. No hemodynamically significant stenosis, aneurysm, dissection, or arteriovenous malformation is shown. IMPRESSION: 1. No occlusion, hemodynamically significant stenosis, or dissection in the major cervical arteries. 2. No occlusion, hemodynamically significant stenosis, aneurysm, dissection, or arteriovenous malformation in the major intracranial arteries. Assessment of stenosis of the internal carotid arteries is based on NASCET criteria. ACT 112: Negative or not required by law. Electronically signed by: Alfonso Cuellar M.D. 10/25/2023 4:53 PM Discharge Plan Visit Data Chief Complaint: Neuro Symptoms/Deficit Stated Complaint: LETHARGIC, BLURRY VISION ED Provider: Macario Wright Discharge Problem: Weakness, Stroke-like symptoms, Speech abnormality Patient Disposition: Admitted As Inpatient Condition: Fair Forms Stand Alone Forms: [facility] Prescriptions Prescriptions: No Action levothyroxine 75 mcg tablet 75 mcg PO QAM ondansetron 4 mg tablet,disintegrating 4 mg translingual Q8H PRN (Reason: n/v) ibuprofen 200 mg Tablet 400 - 800 mg PO BID PRN (Reason: Pain) aspirin 81 mg tablet,chewable 81 mg PO DAILY Referrals Referrals: Petar Riley MD [Primary Care Provider] - Discharge Problem: Speech abnormality Qualifiers: Speech disturbance type: unspecified speech disturbance Qualified Code(s): R 47.9 - Unspecified speech disturbances
[2023-10-25] MEDS: OPTIRAY 320 125ml IV ONE (16:22)
[2023-10-25 16:26] LABS: iSTAT Creatinine 0.9 mg/dl (0.6-1.3); iSTAT Hemoglobin 14.3 g/dl (12.0-16.0); iSTAT Ionized Calcium 1.28 mmol/l (1.12-1.32); iSTAT Potassium 3.7 mmol/L (3.3-5.0)
[2023-10-25 16:36] LABS: Basophils # (auto) 0.01 K/uL (0.00-0.20); Basophils % (auto) 0.1 %; Eosinophils # (auto) 0.13 K/uL (0.00-0.50); Eosinophils % (auto) 1.8 %; Hematocrit (blood only) 41.8 % (37.0-47.0); Hemoglobin 14.6 g/dl (12.0-16.0); Immature Granulocytes # (auto) 0.02 K/uL (0.01-0.20); Immature Granulocytes % (auto) 0.3 %; Lymphocytes # (auto) 2.54 K/uL (1.20-3.40); Lymphocytes % (auto) 34.9 %; Mean Corpuscular Hemoglobin 30.7 pg (25.0-34.0); Mean Corpuscular Hgb Conc 34.9 g/dL (32.0-36.0); Mean Corpuscular Volume 87.8 fL (80.0-100.0); Mean Platelet Volume 9.6 fL (9.4-12.4); Monocytes # (auto) 0.59 K/uL (0.11-0.59); Monocytes % (auto) 8.1 %; Neutrophils # (auto) 3.99 K/uL (1.40-6.50); Neutrophils % (auto) 54.8 %; Platelet Count 277 K/uL (130-400); RDW Coefficient of Variation 12.8 % (11.5-14.5); RDW Standard Deviation 41.1 fL (36.4-46.3); Red Blood Count 4.76 M/uL (4.20-5.40); White Blood Count 7.28 K/ul (4.8-10.8)
[2023-10-25 16:41] LABS: Partial Thromboplastin Ratio 1.1; Partial Thromboplastin Time 30 Seconds (21-31); Prothrombin Time 10.7 Seconds (9.0-12.0)
[2023-10-25 16:44] LABS: Albumin Level 4.8 gm/dl (3.4-5.0); Anion Gap 8 (3-11); Bilirubin,Total 0.5 mg/dl (0.2-1.0); Carbon Dioxide 26 mmol/L (21-32); Chloride 105 mmol/L (98-107); Magnesium 1.9 mg/dl (1.7-2.4); Potassium 3.7 mmol/L (3.5-5.1); Sodium 139 mmol/L (136-145)
[2023-10-25 16:50] LABS: Alanine Aminotransferase 17 U/L (7-52); Albumin Globulin Ratio 1.4 (0.9-2); Alkaline Phosphatase 79 U/L (34-104); Aspartate Aminotransferase 19 U/L (13-39); BUN Creatinine Ratio 13.3 (10-20); Blood Urea Nitrogen 12 mg/dl (6-23); Creatinine Clr Calc Pharmacy 86.2 ml/min; Est GFR (African American) 90.1 ml/min; Est GFR (Non-African American) 77.8 ml/min; Globulin 3.5 gm/dl (2.5-4.0); Glucose 91 mg/dl (70-99(Fasting)); Total Protein 8.3 gm/dl (6.0-8.3)
[2023-10-25] MEDS: SODIUM CHLORIDE 0.9% 500 ML IV ONE (16:51)
--- NOTE | 2023-10-25 16:52 | CT Scan Report ---
CT head/brain wo con CLINICAL HISTORY: neuro deficit, acute stroke suspected Technique: Contiguous axial CT images of the head were acquired from the base of the skull to the debra rodolfo without intravenous contrast administration. Images were viewed in brain, subdural and bone [facility]. Automated dose lowering techniques and/or adjustment according to patient size were utilized for this exam. Comparison: None available at the time of this dictation. Findings: The ventricles, basal cisterns, and cerebral sulci are normal. There is no acute intracranial hemorrh age or evidence of acute territorial infarction. Neither mass effect, shift of the midline structures , nor abnormal extra-axial fluid collections are shown. Imaged portions of the paranasal sinuses and mastoid air cells are clear. The orbits appear normal. There are no acute fractures of the calvaria or scalp swelling. Impression: No acute intracranial hemorrhage, no evidence of acute territorial infarction or other acute intracra nial disease process. ACT 112: Negative or not required by law. Electronically signed by: Alfonso Cuellar M.D. 10/25/2023 4:50 PM
--- NOTE | 2023-10-25 16:54 | CT Scan Report ---
CT angio neck with con, CT angio head w con CLINICAL HISTORY: neuro deficit, acute stroke suspected TECHNIQUE: CT angiography of the head and neck was performed following intravenous administration of iodinated contrast. Coronal and sagittal MIPS were obtained from the axial data set and were submitte d for review. Automated dose lowering techniques and/or adjustment according to patient size were ut ilized for this examination. All measurements were calculated based on NASCET criteria. CT DOSE: 1350.58 mGy.cm Comparison: None available at the time of this dictation. FINDINGS: Lungs and soft tissues are unremarkable. CTA Neck: A 3 vessel aortic arch is shown. There is no significant atherosclerotic plaque in the aor tic arch or the origins of the innominate, left common carotid, and left subclavian arteries. The co mmon carotid, external carotid, cervical segments of the internal carotid arteries, and the cervical segments of the vertebral arteries are patent without hemodynamically significant stenosis. The left vertebral artery is dominant. CTA Head: The anterior and posterior cerebral circulations are patent. No hemodynamically significan t stenosis, aneurysm, dissection, or arteriovenous malformation is shown. IMPRESSION: 1. No occlusion, hemodynamically significant stenosis, or dissection in the major cervical arteries. 2. No occlusion, hemodynamically significant stenosis, aneurysm, dissection, or arteriovenous malfor mation in the major intracranial arteries. Assessment of stenosis of the internal carotid arteries is based on NASCET criteria. ACT 112: Negative or not required by law. Electronically signed by: Alfonso Cuellar M.D. 10/25/2023 4:53 PM
[2023-10-25 16:56] LABS: Appearance Urine Clear (Clear); Bacteria Urine Automated None Seen (None Seen); Bilirubin Urine Negative (Negative); Blood Urine Negative (Negative); Cast Urine Automated 0-2 /lpf (0-2); Color Urine Yellow; Glucose Urine UA Negative (Negative); Ketones Urine Negative (Negative); Leukocyte Esterase Urine Trace (Negative); Nitrite Urine Negative (Negative); Protein Urine Negative (Negative); RBC Urine Automated 0-2 /hpf (0-2); Specific Gravity Urine 1.015 (1.000-1.030); Urobilinogen Urine Negative (Negative); WBC Urine Automated 0-5 /hpf (0-5)
[2023-10-25 17:17] LABS: Troponin I High Sensitivity < 2.3 pg/ml (0-14)
[2023-10-25 17:29] LABS: Amphetamines+Metham, Urine Neg (Neg); Barbiturates, Urine Neg (Neg); Benzodiazepine, Urine Neg (Neg); Cocaine, Urine Neg (Neg); MDMA (Ecstacy), Urine Neg (Neg); Marijuana, Urine Neg (Neg); Methadone, Urine Neg (Neg); Opiate, Urine Neg (Neg); Phencyclidine, Urine Neg (Neg)
[2023-10-25] MEDS ORDERED: ALUMINUM/MAGNESIUM SUSP 30 ML UDC PO PRN (17:47)
[2023-10-25] MEDS ORDERED: MAGNESIUM HYDROXIDE SUSP 30 ML UDC PO PRN (17:47)
[2023-10-25] MEDS ORDERED: ACETAMINOPHEN 325 MG TAB PO PRN (17:47)
[2023-10-25] MEDS ORDERED: ONDANSETRON INJ 2 MG/ML 2 ML VIAL IV PRN (17:47)
--- NOTE | 2023-10-25 18:25 | History & Physical Report ---
Date of Service October 25, 2023 Assessment & Plan (1) Stroke-like symptoms: (2) Expressive aphasia: (3) Fatigue: Plan Ms. Barron is a 43 year old woman with history of hypothyroidism, anxiety, and abnormal uterine bleeding undergoing work up who presented for chronic fatigue and noted to have expressive aphasia. Patient presented on 10/20 for similar symptoms, Imaging with . 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 This could represent a focal short segment dissection versus penetrating ulcer at this location from 10/20; however, extensive neurologic work up did not reveal that this imaging was contributory to the extent of patient's current presentation. 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 A1C 5.5 10/21, lipid panel wnl 10/21 Consider re-read of CTA given no mention of dissection on 10/24 imaging Lipitor not indicated per recent extensive neuro eval Aphasia thought to be psychogenic--Psych consult to eval Multiple imaging with negative work up, Neuro eval requested by patient, any other ddx? Continue ASA #Chronic fatigue #Abnormal uterine bleeding, recently -history of multiple covid infections, ?of "long covid" 10/19: Vit D 37, B12 305, Estradiol 12.6, FSH 14.8 10/20 TSH 1.6 patient with reported menstrual irregularities, follows tearoom host 10/15 pap results pending CTM, no clear etiology at this time #Hypothyroidism Continue synthroid DVT SCDs Admit med/tele Admission and Anticipated Discharge Date Admission Date: Time spent evaluating patient, direct bedside care, chart review, placing orders, interpretation of diagnostic studies, discussion with consultants, patient, and family members, as well as other required patient management activities is 60 minutes. History of Present Illness Chief Complaint: Aphasia Primary Care Provider: Petar Riley MD Ms. Barron is a 43 year old woman who has a significant PMH of hypothyroidism, depression with anxiety and history of migraine presented to [facility] ED due to return of asphasia. Patient reports that she feels intense fatigue--marked by extreme tiredness and lack of motivation, that continues to persist. Patient reported to ED on 10/20 for these symptoms as well as acute onset of stammering and word finding difficulty. 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 Neck CTA: There is a focal tiny intimal flap within the mid left internal carotid artery with mild focal fusiform aneurysmal dilatation at this location measuring up to 6 mm. This could represent a focal short segment dissection versus penetrating ulcer at this location. Patient transferred to [facility] for eval of dissection Per Neurology at that time "MRI and EEG were negative for an acute pathology and I discussed her current language dysfunction (stuttering) is most consistent with a functional neurologic problem. Recommend outpatient psychology" RegardingDSA which revealed 20% stenosis that is non flow limiting PT evaluated: independent at that time. 10/22 OT evaluated: independent at that time 10/22 She experienced improvement of aphasia prior to discharge. However, yesterday, a day after discharge on 10/23, patient noted return of stammering/aphasia. She reports that she just feels "tired all the time" She was concerned her 2020 covid vaccine contributed to her presentation--but she also reports that she had come ill with COVID 4 times or so. She denies fevers, chills. She reports generalized weakness. In the ED, vitals were notable for BP of 120s HR of 70s , and O2 sat of high 90s on RA Imaging revealed no signs of acute stroke. EKG ED interventions: Stroke alert--low suspicion for stroke, question of other Patient to be admitted to med/tele for further evaluation and management of aphasia and fatigue, Allergies Allergy/AdvReac Type Severity Reaction Status Date / Time No Known Allergies Allergy Verified 10/25/23 17:08 Home Medications Medication Instructions Recorded Confirmed Type levothyroxine 75 mcg tablet 75 mcg PO QAM 10/21/23 10/25/23 History ondansetron 4 mg disintegrating 4 mg translingual Q8H PRN n/v 10/21/23 10/25/23 History tablet aspirin 81 mg chewable tablet 81 mg PO DAILY 10/25/23 10/25/23 History ibuprofen 200 mg tablet 400 - 800 mg PO BID PRN Pain 10/25/23 10/25/23 History Past Med/Surg History Medical History Hypothyroidism Depression Anxiety Surgical History History of dental surgery Family History Other Alzheimer disease Cancer Hypertension Social History Smoking Status: Never smoker Hx Alcohol Use: No Hx Substance Use: No Preferred Language: Kiswahili Beliefs That Will Affect Care: [employer]ism marital status: Feels Safe at Home: Yes Review of Systems Review of Systems: Constitutional: (-) fever/chills, (-) recent loss of weight, (-) appetite changes, (-) night sweats.(++)fatigue Head: (-) headache, (-) dizziness. Eye: (-) blurring of vision, (-) double vision, (-) redness. Ear: (-) hearing loss, (-) discharge, (-) vertigo Nose: (-) discharge, (-) bleeding, (-) congestion, (-) post nasal drip. Throat: (-) sore throat, (-) hoarseness of voice, (-) odynophagia. Cardiovascular: (-) chest pain, (-) palpitations, (-) syncope, (-) orthopnea Respiratory: (-) shortness of breath, (-) cough, (-) wheezing, (-) hemoptysis. Neuro: (+) weakness in extremities, (-) numbness, (-) tingling, (-) tremor. (++) aphasia Gastrointestinal: (-) belly pain, (-) belly distension, (-) nausea, (-) vomiting, (-) diarrhea, (-) constipation Genitourinary: (-) hematuria, (-) dysuria, (-) polyuria, (-) hesitancy, (-) frequency, Musculoskeletal: (-) myalgia, (-) arthralgia. Skin: (-) rashes. Endocrine: (-) heat/cold intolerance. Psychiatry: (-) depression, (-) hallucination. Physical Exam Physical Exam: GENERAL APPEARANCE: AxOx4,anxious, stammering--however, fluctuates in intensity throughout conversation HEENT: NC, AT. MMM. EOMI NECK: Supple without lymphadenopathy. No stiffness or restricted ROM. HEART: Normal rate and regular rhythm, normal S1/S1, no m/r/g LUNGS: CTAB, moving air well. No crackles or wheezes are heard. ABDOMEN: Soft, nontender, nondistended with good bowel sounds heard. BACK: No CVAT, no obvious deformity. EXTREMITIES: Without cyanosis, clubbing or edema. NEUROLOGICAL: Alert and oriented, moving all 4 extremities.CN II-XII intact, seemingly inconsistent in effort on exam Skin: Warm and dry without any rash. Results & Data Results & Data Vital Signs (Past 12 Hours) Vital Signs Temp Pulse Pulse Resp BP BP Pulse Ox 10/25/23 16:53 76 17 126/83 98 10/25/23 16:33 65 10/25/23 16:31 65 25 H 126/83 95 10/25/23 16:13 96 10/25/23 15:54 36.6 C 80 18 147/88 H 96 O2 Del Method O2 Flow Rate 10/25/23 16:53 Room Air 0 10/25/23 16:33 10/25/23 16:31 10/25/23 16:13 Room Air 0 10/25/23 15:54 Laboratory Results Short CBC 10/25/23 Range/Units 16:09 WBC 7.28 (4.8-10.8) K/ul Hgb 14.6 (12.0-16.0) g/dl Hct 41.8 (37.0-47.0) % Plt Count 277 (130-400) K/uL BMP 10/25/23 16:09 Sodium 139 Potassium 3.7 Chloride 105 Carbon Dioxide 26 BUN 12 Creatinine 0.90 Glucose 91 Calcium 10.0 Liver Function 10/25/23 Range/Units 16:09 Total Bilirubin 0.5 (0.2-1.0) mg/dl AST 19 (13-39) U/L ALT 17 (7-52) U/L Alkaline Phosphatase 79 (34-104) U/L Albumin 4.8 (3.4-5.0) gm/dl Urine 10/25/23 Range/Units 16:35 Urine Color Yellow Urine Appearance Clear (Clear) Urine pH 8.0 H (4.5-7.5) Ur Specific [place] 1.015 (1.000-1.030) Urine Protein Negative (Negative) Urine Glucose (UA) Negative (Negative) Diagnostic Findings Head CT 10/25/23 16:14 CT head/brain wo con CLINICAL HISTORY: neuro deficit, acute stroke suspected Technique: Contiguous axial CT images of the head were acquired from the base of the skull to the vertex without intravenous contrast administration. Images were viewed in brain, subdural and bone windows. Automated dose lowering techniques and/or adjustment according to patient size were utilized for this exam. Comparison: None available at the time of this dictation. Findings: The ventricles, basal cisterns, and cerebral sulci are normal. There is no acute intracranial hemorrhage or evidence of acute territorial infarction. Neither mass effect, shift of the midline structures, nor abnormal extra-axial fluid collections are shown. Imaged portions of the paranasal sinuses and mastoid air cells are clear. The orbits appear normal. There are no acute fractures of the calvaria or scalp swelling. Impression: No acute intracranial hemorrhage, no evidence of acute territorial infarction or other acute intracranial disease process. ACT 112: Negative or not required by law. Electronically signed by: Alfonso Cuellar M.D. 10/25/2023 4:50 PM Head CTA 10/25/23 16:14 CT angio neck with con, CT angio head w con CLINICAL HISTORY: neuro deficit, acute stroke suspected TECHNIQUE: CT angiography of the head and neck was performed following intravenous administration of iodinated contrast. Coronal and sagittal MIPS were obtained from the axial data set and were submitted for review. Automated dose lowering techniques and/or adjustment according to patient size were utilized for this examination. All measurements were calculated based on NASCET criteria. CT DOSE: 1350.58 mGy.cm Comparison: None available at the time of this dictation. FINDINGS: Lungs and soft tissues are unremarkable. CTA Neck: A 3 vessel aortic arch is shown. There is no significant atherosclerotic plaque in the aortic arch or the origins of the innominate, left common carotid, and left subclavian arteries. The common carotid, external carotid, cervical segments of the internal carotid arteries, and the cervical segments of the vertebral arteries are patent without hemodynamically significant stenosis. The left vertebral artery is dominant. CTA Head: The anterior and posterior cerebral circulations are patent. No hemodynamically significant stenosis, aneurysm, dissection, or arteriovenous malformation is shown. IMPRESSION: 1. No occlusion, hemodynamically significant stenosis, or dissection in the major cervical arteries. 2. No occlusion, hemodynamically significant stenosis, aneurysm, dissection, or arteriovenous malformation in the major intracranial arteries. Assessment of stenosis of the internal carotid arteries is based on NASCET criteria. ACT 112: Negative or not required by law. Electronically signed by: Alfonso Cuellar M.D. 10/25/2023 4:53 PM Neck CTA 10/25/23 16:14 CT angio neck with con, CT angio head w con CLINICAL HISTORY: neuro deficit, acute stroke suspected TECHNIQUE: CT angiography of the head and neck was performed following intravenous administration of iodinated contrast. Coronal and sagittal MIPS were obtained from the axial data set and were submitted for review. Automated dose lowering techniques and/or adjustment according to patient size were utilized for this examination. All measurements were calculated based on NASCET criteria. CT DOSE: 1350.58 mGy.cm Comparison: None available at the time of this dictation. FINDINGS: Lungs and soft tissues are unremarkable. CTA Neck: A 3 vessel aortic arch is shown. There is no significant atherosclerotic plaque in the aortic arch or the origins of the innominate, left common carotid, and left subclavian arteries. The common carotid, external carotid, cervical segments of the internal carotid arteries, and the cervical segments of the vertebral arteries are patent without hemodynamically significant stenosis. The left vertebral artery is dominant. CTA Head: The anterior and posterior cerebral circulations are patent. No hemodynamically significant stenosis, aneurysm, dissection, or arteriovenous malformation is shown. IMPRESSION: 1. No occlusion, hemodynamically significant stenosis, or dissection in the major cervical arteries. 2. No occlusion, hemodynamically significant stenosis, aneurysm, dissection, or arteriovenous malformation in the major intracranial arteries. Assessment of stenosis of the internal carotid arteries is based on NASCET criteria. ACT 112: Negative or not required by law. Electronically signed by: Alfonso Cuellar M.D. 10/25/2023 4:53 PM Medications Administered Home Medications Medication Instructions Recorded Confirmed Last Taken levothyroxine 75 mcg tablet 75 mcg PO QAM 10/21/23 10/25/23 Unknown ondansetron 4 mg disintegrating 4 mg translingual Q8H PRN n/v 10/21/23 10/25/23 Unknown tablet aspirin 81 mg chewable tablet 81 mg PO DAILY 10/25/23 10/25/23 Unknown ibuprofen 200 mg tablet 400 - 800 mg PO BID PRN Pain 10/25/23 10/25/23 Unknown Code Status & VTE Plan VTE Prophylaxis Plan VTE Prophylaxis will be ordered: Yes (3) Fatigue Fatigue type: unspecified Qualified Code(s): R53.83 - Other fatigue
[2023-10-25 19:08] LABS: Ferritin 12.3 ng/ml (8-388)
[2023-10-25 19:14] LABS: Folate (Folic Acid),Ser orPlas 13.97 ng/ml (>5.38)
[2023-10-25] MEDS: POLYETHYLENE (MIRALAX) 17 GM PACK PO PRN (20:12)
[2023-10-26] MEDS: LEVOTHYROXINE SODIUM 75 MCG TABLET PO SCH (05:58)
[2023-10-26 06:23] LABS: Hematocrit (blood only) 39.3 % (37.0-47.0); Hemoglobin 13.7 g/dl (12.0-16.0); Mean Corpuscular Hemoglobin 30.7 pg (25.0-34.0); Mean Corpuscular Hgb Conc 34.9 g/dL (32.0-36.0); Mean Corpuscular Volume 88.1 fL (80.0-100.0); Mean Platelet Volume 9.9 fL (9.4-12.4); Platelet Count 263 K/uL (130-400); RDW Coefficient of Variation 12.9 % (11.5-14.5); RDW Standard Deviation 41.5 fL (36.4-46.3); Red Blood Count 4.46 M/uL (4.20-5.40); White Blood Count 7.51 K/ul (4.8-10.8)
[2023-10-26 06:43] LABS: BUN Creatinine Ratio 18.7 (10-20); Calcium 9.7 mg/dl (8.6-10.3); Creatinine Clr Calc Pharmacy 103.6 ml/min; Est GFR (African American) 112.4 ml/min; Est GFR (Non-African American) 96.9 ml/min; Potassium 3.8 mmol/L (3.5-5.1)
--- NOTE | 2023-10-26 07:23 | Electrocardiogram Report ---
Test Reason : Blood Pressure : / mmHG Vent. Rate : 067 BPM Atrial Rate : 067 BPM P-R Int : 118 ms QRS Dur : 076 ms QT Int : 376 ms P-R-T Axes : 042 001 005 degrees QTc Int : 397 ms Normal sinus rhythm Nonspecific ST abnormality Abnormal ECG When compared with ECG of 21-OCT-2023 11:14, Vent. rate has decreased BY 33 BPM Nonspecific T wave abnormality no longer evident in Lateral leads Confirmed by Nhan Vázquez ([id number]) on 10/26/2023 7:22:33 AM Referred By: REFERRED SELF Confirmed By:Josiah Vázquez
[2023-10-26] MEDS: ASPIRIN 81 MG ECTAB PO SCH (07:58)
--- NOTE | 2023-10-26 11:58 | Hospitalist Progress Note ---
Date of Service October 26, 2023 Assessment & Plan (1) Stroke-like symptoms: (2) Expressive aphasia: (3) Fatigue: Plan 43 year old woman with history of hypothyroidism, anxiety, and abnormal uterine bleeding undergoing work up who presented for chronic fatigue and noted to have expressive aphasia. 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 This could represent a focal short segment dissection versus penetrating ulcer at this location from 10/20; however, extensive neurologic work up did not reveal that this imaging was contributory to the extent of patient's current presentation. Patient was transferred to [facility] where she was extensively evaluated by neurology. On 10/22/2023 abdominal view she had a 6 vessel cerebral angiogram by neurosurgery and was noted to have left internal carotid artery mid cervical segment di ssection causing mild nonflow limiting 20% stenosis. No angiographic evidence of associated pseudoaneurysm on intraluminal thrombosis. No other vascular abnormalities noted. Patient was discharged from [facility] to follow-up with neurosurgery on 11/25/2023 and to get the CT head and neck ordered prior to procedure. She was started on aspirin 81 mg daily. She was also recommended to follow-up with psychiatry. Patient had reported she still had some stuttering at time of discharge. However, after a day, stuttering got worse with increased weakness and some difficulty with speech necessitating with presentation to [facility]. Repeat CT angio head and neck on 10/25/2023 did not show any acute abnormalities. #Dysphasia #Recent L ICA dissection 10/21 s/p DSA which revealed 20% stenosis that is non flow limiting, and no other findings in cervico-cerebral angiogram. A1C 5.5 10/21, lipid panel wnl 10/21 Discussed with neurology. Neurology recommend repeat MRI brain, get nocturnal pulse oximetry while inpatient and get psych evaluation. Also recommend outpatient polysomnography. Will get PLUSH BRUSHER/PT/OT evaluation. Continue aspirin 81 mg daily. Psych eval noted. Psych recommended remeron 15mg HS, and outpatient psychotherapy if patient agrees #Chronic fatigue #Abnormal uterine bleeding, recently -history of multiple covid infections, ?of "long covid" 10/19: Vit D 37, B12 305, Estradiol 12.6, FSH 14.8 10/20 TSH 1.6 Patient with reported menstrual irregularities, follows automation qa analyst 10/15 pap results pending CTM, no clear etiology at this time #Hypothyroidism Continue synthroid DVT ppx-lovenox sq I spent a total of 50 minutes coordinating, documenting and providing care for this patient excluding time spent in performance of separately billed services Admission and Anticipated Discharge Date Admission Date: October 25, 2023 Subjective Patient seen and examined Still having some stuttering/stammering Denies any focal weakness. Reports history of migraines but none at this time. Reports feeling of slow motion has resolved. Reports feeling of generalized body heaviness is resolved. Denied cough, chest pain or shortness of breath Reported some heavy breathing when she fell asleep. Denies fever, chills, nausea, vomiting, abdominal pain, diarrhea, constipation, dysuria, frequency, urgency Reports blurry vision especially on right eye since around 10/21/23 Physical Exam Constitutional: + well hydrated; no acute distress +Stuttering Eyes: PERRL, conjunctivae normal, anicteric sclerae ENMT: external ear and nose normal, oropharynx normal Respiratory: normal respiratory effort, lungs clear to auscultation Cardiovascular: RRR, no murmur, no edema Gastrointestinal (Abdomen): normal bowel sounds, soft, nontender, no hepatosplenomegaly Musculoskeletal: no cyanosis or clubbing, extremities motor strength 5/5 Neurologic: PERRL, EOMI, accommodation nl, no face palsy, no dysarthria Psychiatric: A+Ox3, euthymic affect Results & Data Results & Data Vital Signs (Past 12 Hours) Vital Signs Temp Pulse Pulse Resp BP BP Pulse Ox 10/26/23 08:13 36.6 C 72 18 116/77 95 10/26/23 07:55 10/26/23 07:12 79 10/26/23 04:06 36.6 C 61 16 106/70 95 O2 Del Method 10/26/23 08:13 Room Air 10/26/23 07:55 Room Air 10/26/23 07:12 10/26/23 04:06 Room Air Laboratory Results Abnormal lab results 10/25/23 10/25/23 Range/Units 16:09 16:35 Unsaturated IBC 375 H (155-355) mcg/dl Transferrin % Sat 13 L (15-50) % Urine pH 8.0 H (4.5-7.5) Ur Leukocyte Esterase Trace H (Negative) U Epithel Cells (Auto) 3-5 H (0-2) /hpf (3) Fatigue Fatigue type: unspecified Qualified Code(s): R53.83 - Other fatigue
--- NOTE | 2023-10-26 13:30 | Neurology Consultation ---
Date of Consultation October 26, 2023 Assessment & Plan (1) Speech abnormality: Speech changes inconsistent with aphasia Recommend psych consultation MRI brain with and without contrast- due to report of blurred vision right eye Continue frequent neurological assessments Obtain stat CT brain without contrast for any acute neurological decline Continue to monitor/control blood pressure & blood glucose Continue to monitor telemetry closely Continue to monitor renal and hepatic function, keep euvolemic Continue daily ASA as prescribed following diagnosis of cervical ICA dissection Ok from neurology perspective for VTE prophylaxis PT/OT/SLT to eval and treat Recommend nocturnal pulse oximetry monitoring Recommend outpatient polysomnography Telehealth Consultation Telehealth Information Telehealth Information: I performed this visit using a real-time telehealth connection between my location and the patients location ([facility]). After connecting through interactive tele-video, patient was identified by name and date of and/or wristband check.Patient (or authorized healthcare service representative) was informed that this was a telemedicine visit and it was being conducted confidentially over secure lines. My office door was closed and no one else was present in the room with me.Patient (or authorized healthcare service representative) provided consent to proceed with the visit, expressed an understanding of privacy and security of the telemedicine visit, and gave permission to have a hospital service representative in the room in order to assist with the visit and to conduct portions of the visit, as needed. I informed the patient (or authorized healthcare service representative) that I reviewed their record and presented the opportunity for them to ask any questions regarding the visit today. The patient agreed to participate. History of Present Illness Reason for Consultation: Neurology consultation Requesting Physician: Dr. Root Attending Physician: Shyanne Root MD History of Present Illness 43yo female with significant past medical history of hypothyroidism presented approx one week ago found to have small area of cervical ICA dissection following [place] at [facility] [place] was initiated on daily ASA. At that time demonstrated episodes of stuttering/stammering inconsistent with features of aphasia. Was subsequently discharged but presented last evening to [facility] with complaint of overall fatigue and episodes of stuttering as well. He has undergone emergent stroke imaging including CT brain without contrast, personally reviewed, revealing no overt evidence of hemorrhage. CT angiographic studies of head and neck, also personally reviewed, reveal no overt evidence of large vessel occlusion or significant/flow limiting stenosis. I have performed televideo consultation. She is alert & oriented. Reports blurred vision in right eye. No reported cephalgia or cervicalgia Denies chest pain/palpitations or shortness of breath No reported changes in hearing dizziness syncope seizure like activity or paresthesia Denies recent fevers chills nausea vomiting changes in bowels or bladder Denies recent medication changes, recent illness or sick contacts, no reported recent travel Allergies Allergy/AdvReac Type Severity Reaction Status Date / Time No Known Allergies Allergy Verified 10/25/23 17:08 Home Medications Medication Instructions Recorded Confirmed Type levothyroxine 75 mcg tablet 75 mcg PO QAM 10/21/23 10/25/23 History ondansetron 4 mg disintegrating 4 mg translingual Q8H PRN n/v 10/21/23 10/25/23 History tablet aspirin 81 mg chewable tablet 81 mg PO DAILY 10/25/23 10/25/23 History ibuprofen 200 mg tablet 400 - 800 mg PO BID PRN Pain 10/25/23 10/25/23 History Patient History Medical History Hypothyroidism Depression Anxiety Surgical History History of dental surgery Family History Other Alzheimer disease Cancer Hypertension Social History Smoking Status: Never smoker Second Hand Exposure: No; Do You Dip or Chew Tobacco: No; Tobacco Cessation Education Requested by Patient: No Hx Alcohol Use: Yes Alcohol type: beer and wine Hx Substance Use: No Preferred Language: Malay Communication Ability: Effective Tree Worker Required: No Beliefs That Will Affect Care: None marital status: Current Living Situation: Spouse Other Information That Helps Us Care for You: No Feels Safe at Home: Yes Safety Concerns: Feels Safe At This Time Assistive Devices: Glasses Physical Exam Neurological Examination: Mental Status: Awake and alert. Oriented to person, place, and time. Interrupted fluency -stuttering/stammering Comprehension is grossly intact. Affect remains appropriate. CN testing: I: Denies changes in ability to smell II:Reports no changes in visual acuity III/IV/: No evidence of gaze preference, hippus, nystagmus or roving eye movements V: Facial sensation reportedly grossly intact to light touch bilaterally VII: Facial movements appear without evidence of asymmetry VIII: Hearing appears grossly intact to loud voice bilaterally IX/X: Palate is difficult to accurately visualize XI: Shoulder shrug appears symmetric/ grossly intact bilaterally XII: Tongue protrudes midline without evidence of biting Motor exam: Strength appears grossly intact/symmetric in all extremities Sensory: Sensation is reportedly grossly intact throughout Coordination: NO apparent evidence of dysmetria or dysdiadochokinesia Reflexes: Deferred Gait: Deferred Results & Data Vital Signs (Past 12 Hours) Vital Signs Temp Pulse Pulse Resp BP BP Pulse Ox 10/26/23 08:13 36.6 C 72 18 116/77 95 10/26/23 07:55 10/26/23 07:12 79 10/26/23 04:06 36.6 C 61 16 106/70 95 O2 Del Method 10/26/23 08:13 Room Air 10/26/23 07:55 Room Air 10/26/23 07:12 10/26/23 04:06 Room Air Laboratory Results Abnormal lab results 10/25/23 10/25/23 Range/Units 16:09 16:35 Unsaturated IBC 375 H (155-355) mcg/dl Transferrin % Sat 13 L (15-50) % Urine pH 8.0 H (4.5-7.5) Ur Leukocyte Esterase Trace H (Negative) U Epithel Cells (Auto) 3-5 H (0-2) /hpf Diagnostic Findings Head CT 10/25/23 16:14 CT head/brain wo con CLINICAL HISTORY: neuro deficit, acute stroke suspected Technique: Contiguous axial CT images of the head were acquired from the base of the skull to the vertex without intravenous contrast administration. Images were viewed in brain, subdural and bone windows. Automated dose lowering techniques and/or adjustment according to patient size were utilized for this exam. Comparison: None available at the time of this dictation. Findings: The ventricles, basal cisterns, and cerebral sulci are normal. There is no acute intracranial hemorrhage or evidence of acute territorial infarction. Neither mass effect, shift of the midline structures, nor abnormal extra-axial fluid collections are shown. Imaged portions of the paranasal sinuses and mastoid air cells are clear. The orbits appear normal. There are no acute fractures of the calvaria or scalp swelling. Impression: No acute intracranial hemorrhage, no evidence of acute territorial infarction or other acute intracranial disease process. ACT 112: Negative or not required by law. Electronically signed by: Alfonso Cuellar M.D. 10/25/2023 4:50 PM Head CTA 10/25/23 16:14 CT angio neck with con, CT angio head w con CLINICAL HISTORY: neuro deficit, acute stroke suspected TECHNIQUE: CT angiography of the head and neck was performed following intrav enous administration of iodinated contrast. Coronal and sagittal MIPS were obtained from the axial data set and were submitted for review. Automated dose lowering techniques and/or adjustment according to patient size were utilized for this examination. All measurements were calculated based on NASCET criteria. CT DOSE: 1350.58 mGy.cm Comparison: None available at the time of this dictation. FINDINGS: Lungs and soft tissues are unremarkable. CTA Neck: A 3 vessel aortic arch is shown. There is no significant atherosclerotic plaque in the aortic arch or the origins of the innominate, left common carotid, and left subclavian arteries. The common carotid, external carotid, cervical segments of the internal carotid arteries, and the cervical segments of the vertebral arteries are patent without hemodynamically significant stenosis. The left vertebral artery is dominant. CTA Head: The anterior and posterior cerebral circulations are patent. No hemodynamically significant stenosis, aneurysm, dissection, or arteriovenous malformation is shown. IMPRESSION: 1. No occlusion, hemodynamically significant stenosis, or dissection in the major cervical arteries. 2. No occlusion, hemodynamically significant stenosis, aneurysm, dissection, or arteriovenous malformation in the major intracranial arteries. Assessment of stenosis of the internal carotid arteries is based on NASCET criteria. ACT 112: Negative or not required by law. Electronically signed by: Alfonso Cuellar M.D. 10/25/2023 4:53 PM Neck CTA 10/25/23 16:14 CT angio neck with con, CT angio head w con CLINICAL HISTORY: neuro deficit, acute stroke suspected TECHNIQUE: CT angiography of the head and neck was performed following intravenous administration of iodinated contrast. Coronal and sagittal MIPS were obtained from the axial data set and were submitted for review. Automated dose lowering techniques and/or adjustment according to patient size were utilized for this examination. All measurements were calculated based on NASCET criteria. CT DOSE: 1350.58 mGy.cm Comparison: None available at the time of this dictation. FINDINGS: Lungs and soft tissues are unremarkable. CTA Neck: A 3 vessel aortic arch is shown. There is no significant atherosclerotic plaque in the aortic arch or the origins of the innominate, left common carotid, and left subclavian arteries. The common carotid, external carotid, cervical segments of the internal carotid arteries, and the cervical segments of the vertebral arteries are patent without hemodynamically significant stenosis. The left vertebral artery is dominant. CTA Head: The anterior and posterior cerebral circulations are patent. No hemodynamically significant stenosis, aneurysm, dissection, or arteriovenous malformation is shown. IMPRESSION: 1. No occlusion, hemodynamically significant stenosis, or dissection in the major cervical arteries. 2. No occlusion, hemodynamically significant stenosis, aneurysm, dissection, or arteriovenous malformation in the major intracranial arteries. Assessment of stenosis of the internal carotid arteries is based on NASCET criteria. ACT 112: Negative or not required by law. Electronically signed by: Alfonso Cuellar M.D. 10/25/2023 4:53 PM Medications Administered Home Medications Medication Instructions Recorded Confirmed Last Taken levothyroxine 75 mcg tablet 75 mcg PO QAM 10/21/23 10/25/23 Unknown ondansetron 4 mg disintegrating 4 mg translingual Q8H PRN n/v 10/21/23 10/25/23 Unknown tablet aspirin 81 mg chewable tablet 81 mg PO DAILY 10/25/23 10/25/23 Unknown ibuprofen 200 mg tablet 400 - 800 mg PO BID PRN Pain 10/25/23 10/25/23 Unknown Active Medications Generic Name Dose Route Start Last Admin Trade Name Freq PRN Reason Stop Dose Admin Aspirin 81 mg 10/26/23 09:00 10/26/23 07:58 Aspirin 81 Mg Ectab PO 11/25/23 08:59 81 mg DAILY ONEIL Administration Levothyroxine Sodium 75 mcg 10/26/23 06:30 10/26/23 05:58 Levothyroxine Sodium 75 Mcg Tablet PO 11/25/23 06:29 75 mcg DAILYBB ONEIL Administration Polyethylene Glycol 17 gm 10/25/23 17:47 10/26/23 09:51 Polyethylene (Miralax) 17 Gm Pack PO 11/24/23 17:46 17 gm DAILY PRN Administration Constipation (1) Speech abnormality Speech disturbance type: unspecified speech disturbance Qualified Code(s): R47.9 - Unspecified speech disturbances
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
--- NOTE | 2023-10-26 15:14 | Magnetic Resonance Report ---
MR brain wo con CLINICAL HISTORY: Change in speech. Rule out CVA TECHNIQUE: Multiplanar and multisequence MR images of the brain were obtained without intravenous con trast. Comparison: Comparison is made to MRI brain 10/21/2023 FINDINGS: No abnormal restricted diffusion is identified. Foci of T2 and FLAIR hyperintensity are noted in the paraventricular areas consistent with chronic small vessel ischemic disease. The ventricular system i s normal in appearance. No mass is seen. There is no mass effect or midline shift. There is no eviden ce of acute intraparenchymal hemorrhage. No extra axial fluid collections are seen. The corpus callos um, pituitary gland, and cerebellar tonsils appear grossly unremarkable. Flow voids of the major intracranial arterial vessels are identified. The imaged portions of the para nasal sinuses, mastoid air cells, and orbits are unremarkable. IMPRESSION: No acute abnormalities. ACT 112: Negative or not required by law. Electronically signed by: Alfonso Cuellar M.D. 10/26/2023 3:12 PM
[2023-10-26] MEDS: DOCUSATE SODIUM/SENNA 50/8.6MG TAB PO SCH (15:34)
[2023-10-26] MEDS: MIRTAZAPINE TAB 15 MG TAB PO SCH (20:00)
[2023-10-27 07:52] LABS: Hematocrit (blood only) 41.5 % (37.0-47.0); Hemoglobin 14.3 g/dl (12.0-16.0); Mean Corpuscular Hemoglobin 30.8 pg (25.0-34.0); Mean Corpuscular Hgb Conc 34.5 g/dL (32.0-36.0); Mean Corpuscular Volume 89.4 fL (80.0-100.0); Mean Platelet Volume 9.8 fL (9.4-12.4); Platelet Count 294 K/uL (130-400); RDW Coefficient of Variation 13.2 % (11.5-14.5); RDW Standard Deviation 43.4 fL (36.4-46.3); Red Blood Count 4.64 M/uL (4.20-5.40); White Blood Count 6.22 K/ul (4.8-10.8)
[2023-10-27] MEDS: ENOXAPARIN INJ 40 MG/0.4 ML SYR SQ SCH (08:20)
[2023-10-27 09:15] LABS: BUN Creatinine Ratio 20.8 (10-20); Calcium 9.8 mg/dl (8.6-10.3); Creatinine Clr Calc Pharmacy 98.8 ml/min; Est GFR (African American) 108.8 ml/min; Est GFR (Non-African American) 93.9 ml/min; Potassium 3.8 mmol/L (3.5-5.1)
--- NOTE | 2023-10-27 12:18 | Discharge Summary ---
Date of Service October 27, 2023 Admission HPI Per Admitting Provider Ms. Barron is a 43 year old woman who has a significant PMH of hypothyroidism, depression with anxiety and history of migraine presented to [facility] due to return of asphasia. Patient reports that she feels intense fatigue--marked by extreme tiredness and lack of motivation, that continues to persist. Patient reported to ED on 10/20 for these symptoms as well as acute onset of stammering and word finding difficulty. 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 Neck CTA: There is a focal tiny intimal flap within the mid left internal carotid artery with mild focal fusiform aneurysmal dilatation at this location measuring up to 6 mm. This could represent a focal short segment dissection versus penetrating ulcer at this location. Patient transferred to [place] for eval of dissection Per Neurology at that time "MRI and EEG were negative for an acute pathology and I discussed her current language dysfunction (stuttering) is most consistent with a functional neurologic problem. Recommend outpatient psychology" RegardingDSA which revealed 20% stenosis that is non flow limiting PT evaluated: independent at that time. 10/22 OT evaluated: independent at that time 10/22 She experienced improvement of aphasia prior to discharge. However, yesterday, a day after discharge on 10/23, patient noted return of stammering/aphasia. She reports that she just feels "tired all the time" She was concerned her 2020 covid vaccine contributed to her presentation--but she also reports that she had come ill with COVID 4 times or so. She denies fevers, chills. She reports generalized weakness. In the ED, vitals were notable for BP of 120s HR of 70s , and O2 sat of high 90s on RA Imaging revealed no signs of acute stroke. EKG ED interventions: Stroke alert--low suspicion for stroke, question of other Patient to be admitted to med/tele for further evaluation and management of aphasia and fatigue, Admission Exam Per Admitting Provider GENERAL APPEARANCE: AxOx4,anxious, stammering--however, fluctuates in intensity throughout conversation HEENT: NC, AT. MMM. EOMI NECK: Supple without lymphadenopathy. No stiffness or restricted ROM. HEART: Normal rate and regular rhythm, normal S1/S1, no m/r/g LUNGS: CTAB, moving air well. No crackles or wheezes are heard. ABDOMEN: Soft, nontender, nondistended with good bowel sounds heard. BACK: No CVAT, no obvious deformity. EXTREMITIES: Without cyanosis, clubbing or edema. NEUROLOGICAL: Alert and oriented, moving all 4 extremities.CN II-XII intact, seemingly inconsistent in effort on exam Skin: Warm and dry without any rash. Principal Diagnosis Speech abnormality Discharge Exam Constitutional + well hydrated; no acute distress +stuttering Eyes PERRL, conjunctivae normal, anicteric sclerae ENMT external ear and nose normal, oropharynx normal Respiratory normal respiratory effort, lungs clear to auscultation Cardiovascular RRR, no murmur, no edema Gastrointestinal (Abdomen) normal bowel sounds, soft, nontender, no hepatosplenomegaly Musculoskeletal no cyanosis or clubbing, extremities motor strength 5/5 Neurologic PERRL, EOMI, accommodation nl, no face palsy, no dysarthria Psychiatric A+Ox3, euthymic affect Discharge Data Allergies Allergy/AdvReac Type Severity Reaction Status Date / Time No Known Allergies Allergy Verified 10/25/23 17:08 Consultations 10/25/23 17:46 ED Decision to Admit Stat 10/25/23 17:47 Consult Neurology Routine Consult Psychiatry Routine Ordered Studies 10/25/23 16:14 CT angio head w con Stat CT angio neck with con Stat CT head/brain wo con Stat 10/26/23 11:58 MRI Brain [MR brain wo con] Urgent Hospital Course (1) Fatigue: (2) Speech abnormality: Plan 43 year old woman with history of hypothyroidism, anxiety, and abnormal uterine bleeding undergoing work up who presented for chronic fatigue and noted to have expressive aphasia. 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 This could represent a focal short segment dissection versus penetrating ulcer at this location from 10/20; however, extensive neurologic work up did not reveal that this imaging was contributory to the extent of patient's current presentation. Patient was transferred to [place] where she was extensively evaluated by neurology. 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 No angiographic evidence of associated pseudoaneurysm on intraluminal thrombosis. No other vascular abnormalities noted. Patient was discharged from [place] to follow-up with neurosurgery on 11/25/2023 and to get the CT head and neck ordered prior to procedure. She was started on aspirin 81 mg daily. She was also recommended to follow-up with psychiatry. Patient had reported she still had some stuttering at time of discharge. However, after a day, stuttering got worse with increased weakness and some difficulty with speech necessitating with presentation to [facility] Repeat CT angio head and neck on 10/25/2023 did not show any acute abnormalities. 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 A1C 5.5 10/21, lipid panel wnl 10/21 Speech changes was noted to be inconsistent with aphasia/dysphasia Repeat MRI brain did not show any acute abnormalities Stroke was ruled out Nocturnal pulse oximetry did not show any oxygen needs However, neuro recommends outpatient polysomnography. Patient's PCP can arrange this Needs to follow up with Neurosurg appt made on recent dc from [facility] Psych evaluated and recommended psychotherapy but patient not open to it at this time Remeron 15mg HS was given per psych recs to help with sleep However, patient noted that was too much for her. Though she slept well but drowsiness extended to part of the day This was discontinued SERVICES REP evaluated and recommend outpatient SERVICES REP eval and treat Script given to coordinator to make arrangement #Chronic fatigue #Abnormal uterine bleeding, recently -history of multiple covid infections, ?of "long covid" 10/19: Vit D 37, B12 305, Estradiol 12.6, FSH 14.8 10/20 TSH 1.6 Patient with reported menstrual irregularities, follows radiator core tester 10/15 pap results pending CTM, no clear etiology at this time #Hypothyroidism Continue synthroid Total Time Total Time Spent Total Time Spent (In Minutes): 45 Total Time Includes: Examination of the Patient, Discharge Planning, Medication Reconciliation and Communication With Other Providers Discharge Plan Discharge Items Patient Disposition: Home - Self-Care Reason For Visit: Speech abnormality Discharge Diagnosis: Speech abnormality Condition on Discharge: Fair Activity: Resume your previous activity Non-emergency contact: Primary Care Provider and Neurologist Call non-emergency contact if: you have any medication questions and your symptoms worsen Follow-up/Referrals: Petar Riley MD [Primary Care Provider] - (Date & Time 10/30/2023 8:20 AM Provider John Maria MD Department Family Medicine [facility] ) Diet: Regular Addtl Attending Provider Instructions: Mrs Barron. You came to the hospital complaining of speech abnormality/stuttering. You were extensively evaluated You are being discharged home. Please ensure followup with your Family Doctor. Family Doctor should make arrangement for sleep study Please ensure you keep your prior appointment with Neurosurgery. It was a pleasure taking care of you Pending Studies at Discharge: No Stand-Alone Forms: [facility], Work/School Release, Smoking Cessation Medications and DC Order Prescriptions: Continued levothyroxine 75 mcg tablet 75 mcg PO QAM ondansetron 4 mg tablet,disintegrating 4 mg translingual Q8H PRN (Reason: n/v) ibuprofen 200 mg Tablet 400 - 800 mg PO BID PRN (Reason: Pain) aspirin 81 mg tablet,chewable 81 mg PO DAILY Discharge Orders: Discharge Order (Routine); Ordered 10/27/23 Ordered By: Shyanne Root Admission Data Admit Date/Time: 10/25/23 17:47 Attending Provider: Shyanne Root I. Admit Provider: Page Mora Primary Care Provider: Petar Riley Other Providers: Page Mora; Gino Murphy; Marlene Coughlin; Fabián Ardon; Hao Cheng Jr; Mildred Linares; Neli Batista; Yoel Chin Other Interventions: Discharge Summary Assessment (RN) Last Done: 10/27/23 12:35
--- NOTE | 2023-10-27 16:11 | Communication Note ---
Date of Service: October 27, 2023 MRI reviewed with no acute changes please follow recs as per consult note
== END 2023-10-27 17:48 | disposition home or self-care (01) | DRG 93 ==
LOC: ED 15:53 → 2N 17:47 → SUATTDRO 17:47 → 2N 18:35